=== PATIENT | female | born 1970 | race Caucasian/White ===

== ENCOUNTER 2019-11-02 13:44 | Emergency (ER) | payer MEDICAID, SELFPAY ==
[2019-11-02 13:49] VITALS: BP 140/75; PULSE 75; RESP 20; TEMP 36.6; O2SAT 94; BMI 38.9
--- NOTE | 2019-11-02 13:57 | ED_ITS ---
Entered by [id number], acting as scribe for Eric Bearden DO Nov 02, 2019 13:44 HPI - Neck Pain/Injury General: Chief Complaint: Neck Pain/Injury Stated Complaint: Neck Pain Time Seen by Provider: 11/02/19 13:48 PFSH ED PFSH: Statuses (acute, chronic, etc) shown below reflect problem list status as previously entered and may not be historically accurate Medical History (Updated 11/02/19 @ 14:56 by Eric Bearden DO) Neck pain (Acute) Surgical History (Updated 11/02/19 @ 14:25 by Dorota Singh) History of back surgery (Acute) Social History Smoking and tobacco status: current every day smoker Course Vital Signs: Vital signs: Vital Signs Temperature 97.9 F 11/02/19 13:49 Pulse Rate 75 11/02/19 13:49 Respiratory Rate 20 H 11/02/19 13:49 Blood Pressure 140/75 11/02/19 13:49 Pulse Oximetry 94 11/02/19 13:49 Discharge Plan Discharge Patient Disposition: Home, Self-Care Clinical Impression: Neck pain, Disc disorder of cervical region, Cervical radiculopathy, Cervical spondylosis Condition: Stable Prescriptions: New hydrocodone-acetaminophen 5-325 mg tablet 1 tab PO Q4H PRN (Reason: pain) Qty: 10 RF: 0 cyclobenzaprine 10 mg tablet 10 mg PO Q8H Qty: 20 RF: 0 No Action Pending RF: 0 Discharge Orders: Discharge Order (Routine); Ordered 11/02/19 Ordered By: Eric Bearden Discharge Activity: Limit activity as instructed Patient Instructions: Cervical Spinal Stenosis (ED), Cervical Sprain (ED), Cervical Radiculopathy (ED) Coding Level of Care Code ED Nutrition Coordinator for Smiley Polk The documentation recorded by the scribe, [id number], accurately reflects the service I personally performed and the decisions made by Monisha mccarthy Donald P, DO Nov 02, 2019 13:44
--- NOTE | 2019-11-02 14:00 | XRR_ITS ---
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 COMPARISON: No relevant prior studies available. FINDINGS: Vertebrae: Moderate diffuse facet degenerative changes are noted. There is mild disc space narrowing and endplate sclerosis at C5-C6. Marginal osteophytes are also noted at this level. No subluxation. No acute fracture. Soft tissues: Normal. XR/XR cervical spine 2V* [id number] IMPRESSION: Degenerative changes as above. No acute abnormality.
--- NOTE | 2019-11-02 14:03 | ED_ITS ---
Entered by Dorota Singh, acting as scribe for Eric Bearden DO HPI - Neck Pain/Injury General: Chief Complaint: Neck Pain/Injury Stated Complaint: Neck Pain Time Seen by Provider: 11/02/19 13:48 Source: patient Mode of arrival: wheelchair Limitations: no limitations History of Present Illness: HPI Narrative: 48 yo Male presents to ED with complaint of neck pain. Pt states that he was told recently that he had problems with his neck and it would get worse. Pt states that he woke up yesterday morning with a bloody nose and a bad headache. Pt states that when he tries to move his head he feels it crunching in his neck. Pt states that his eye sight is going in and out. MD complaint: neck pain Onset (ago): day(s) (yesterday) Place: home Severity scale (1-10): 10 Duration: constant Context: other (no injury occurred) Associated symptoms: Reports headache(s) Review of Systems General: Reports: 10 or more systems reviewed and unremarkable except in HPI and below Eyes: Reports: change in vision Musc: Reports: neck pain Neuro: Reports: headache PFSH ED PFSH: Statuses (acute, chronic, etc) shown below reflect problem list status as previously entered and may not be historically accurate Medical History (Updated 11/02/19 @ 14:56 by Eric Bearden DO) Neck pain (Acute) Surgical History (Updated 11/02/19 @ 14:25 by Dorota Singh) History of back surgery (Acute) Social History Smoking and tobacco status: current every day smoker Physical Exam Const: COMMON NORMALS: no apparent distress, average body habitus, oriented x3, no limitations, healthy appearing, alert and well nourished HENMT: COMMON NORMALS: normocephalic, head/scalp atraumatic, hearing grossly normal bilaterally, external ears normal, EAC's normal, TM's normal bilaterally, external nose normal, nasal mucous membranes and turbinates normal, moist oral mucous membranes, oropharynx normal, dentition normal and gingiva normal HEAD & SCALP: normocephalic and atraumatic NOSE: external nose normal and nasal mucous membranes and turbinates normal EXTERNAL EAR: Yes external ears normal EXTERNAL AUDITORY CANAL: EAC's normal TYMPANIC MEMBRANE: TM's normal bilaterally Eye: COMMON NORMALS: PERRL, EOMs intact bilaterally, conjunctivae normal, no scleral icterus, no papilledema, normal visual mcdonald by confrontation and fundi normal bilaterally CONJUNCTIVA: Yes conjunctivae normal PUPIL: Yes PERRL DIRECT OPHTHALMOSCOPY: Yes no papilledema and Yes fundi normal bilaterally Neck/C-Spine: COMMON NORMALS: full ROM, no lymphadenopathy, supple, no meningeal signs, no JVD, thyroid normal and no carotid bruits THYROID: thyroid normal Chest: COMMONS NORMALS: inspection of chest normal and palpation of chest normal Resp: COMMON NORMALS: normal respiratory effort, no retractions, no use of accessory muscles, clear to auscultation bilaterally and percussion normal AUSCULTATION: clear to auscultation bilaterally PERCUSSION: percussion normal Cardio: COMMON NORMALS: no JVD, regular rate, regular rhythm, S1 normal heart sound, S2 normal heart sound, no gallops, no clicks, no murmurs, no rub and peripheral pulses 2+ throughout RATE: regular rate RHYTHM: regular rhythm HEART SOUNDS: S1 normal and S2 normal PERIPHERAL PULSES: pulses 2+ througho ut GI: COMMON NORMALS: normal to inspection, nondistended, normoactive bowel sounds, soft to palpation, non-tender, no hepatosplenomegaly, no masses and no bruits PALPATION: Yes soft and Yes no hepatosplenomegaly : COMMON NORMALS: Yes no CVA tenderness and Yes external appearance normal BLADDER/KIDNEY EXAM: Yes no CVA tenderness Back/Pelvis: COMMON NORMALS: no CVA tenderness, thoracic and lumbar spine normal to inspection, no thoracic nor lumbar tenderness, thoraco-lumbar ROM normal and straight leg raise negative bilaterally Extremity: COMMON NORMALS: normal to inspection, full ROM, normal capillary refill, no joint enlargement, no clubbing, cyanosis or edema, no calf tenderness and no pedal edema Neuro: COMMON NORMALS: oriented x3 SENSORIUM/ORIENTATION: Yes alert MENINGEAL SIGNS: Yes no meningeal signs Skin: COMMON NORMALS: no rashes or lesions noted, no wounds, skin turgor normal, no jaundice, no petechiae and no mottling GENERAL SKIN EXAM: no rashes or lesions noted and turgor normal Course Vital Signs: Vital signs: Vital Signs Temperature 97.9 F 11/02/19 13:49 Pulse Rate 75 11/02/19 13:49 Respiratory Rate 20 H 11/02/19 13:49 Blood Pressure 140/75 11/02/19 13:49 Pulse Oximetry 94 11/02/19 13:49 Discharge Plan Discharge Patient Disposition: Home, Self-Care Clinical Impression: Neck pain, Disc disorder of cervical region, Cervical radiculopathy, Cervical spondylosis Condition: Stable Prescriptions: No Action Pending RF: 0 Discharge Activity: Limit activity as instructed Patient Instructions: Cervical Radiculopathy (ED), Cervical Spinal Stenosis (ED), Cervical Sprain (ED) Coding Level of Care Code ED Customs Manager for Chg Fwd Exam Problem Focused The documentation recorded by the Francisco teresa Carmen, accurately reflects e service I personally performed and the decisions made by Monisha mccarthy Donald P, DO
[2019-11-02] MEDS: HYDROcodone-acetaminophen 5-325 mg Tablet 2 TAB PO (14:36)
--- NOTE | 2019-11-02 14:37 | PC.NURSE ---
pt off unit at this time to radiology by wheelchair with tech
[2019-11-02 15:19] VITALS: BP 122/65; PULSE 76; O2SAT 93
[2019-11-02] MEDS: fentaNYL 50 mcg/mL INJ 2mL 100 MCG XX (15:21)
--- NOTE | 2019-11-04 12:47 | DCPLANNER ---
manager video games had message to schedule a follow up appointment for patient with Dr. Zayas. manager video games called [facility], spoke with Radha. manager video games gave clinic patients information, was told that patients information would be printed and given to Curtis for review. Clinic will call patient with appointment information, case work aide will call clinic for appointment information.
--- NOTE | 2019-11-05 11:26 | DCPLANNER ---
Curtis from Dr. Hartmann office called transplant case manager with appointment information. prototype engineer manager was told that a follow up appointment is scheduled for Monday, January 06, 2020 at 1:00 with TELESALES REPRESENTATIVE, Christina Yuan. prototype engineer manager was told that clinic contacted patient with appointment information.
--- NOTE | 2020-01-08 14:19 | DCPLANNER ---
Patient attended follow up appointment scheduled with Dr. Zayas.
== END 2019-11-02 15:35 | disposition home or self-care (01) ==
PROVIDERS: Emergency Provider Family Medicine
DX: M50.10 Cervical disc disorder with radiculopathy, unspecified cervical region (principal); M47.812 Spondylosis without myelopathy or radiculopathy, cervical region; F17.210 Nicotine dependence, cigarettes, uncomplicated
CPT/HCPCS: 72040; 96372; 99281; J3010

== ENCOUNTER → 2019-12-20 12:48 | Outpatient (BNVA) | payer MEDICAID, SELFPAY | PROVIDERS: PCP Family Medicine; Visit Provider Psychiatry & Neurology Neurology | DX: G56.02 Carpal tunnel syndrome, left upper limb (principal); M54.2 Cervicalgia; F17.210 Nicotine dependence, cigarettes, uncomplicated | CPT/HCPCS: 95886; 95910 ==

== ENCOUNTER 2019-12-26 13:39 | Outpatient (CLI) | payer MEDICAID, SELFPAY ==
--- NOTE | 2019-12-26 14:30 | MR_ITS ---
WS: [id number] MRI CERVICAL SPINE NONCONTRAST TECHNIQUE: Sagittal T1, T2 and STIR imaging. Axial T2, gradient, and fiesta imaging. CLINICAL INFORMATION: Neck pain COMPARISON: None. FINDINGS: Some images degraded by motion. Straightening of the normal cervical lordosis. Cord signal is normal. No high-grade central canal reyna rowing. C2-C3: Mild left and no significant right foraminal narrowing. Mild facet arthropathy. Spinal canal i s patent. C3-C4: Disc osteophytic ridging. Moderate left and mild right bony foraminal narrowing. Mild facet ar thropathy. Mild central canal stenosis. C4-C5: Mild disc bulging with osteophytic ridging. Moderate left and mild right bony foraminal narrow ing. Mild facet arthropathy. Mild central canal stenosis. C5-C6: Disc osteophyte complex with mild central canal stenosis. Moderate bilateral bony foraminal na rrowing left greater than right. Moderate facet arthropathy. C6-C7: Mild disc bulging. Mild to moderate left and no significant right foraminal narrowing. Mild fa cet arthropathy. Spinal canal is patent. C7-T1: Normal. Visualized brain stem structures: Normal. Prevertebral soft tissues: Normal. MR/MR cervical spin wo con* [id number] IMPRESSION: 1. Straightening of the normal cervical lordosis. No high-grade central canal narrowing. 2. Mild central canal stenosis C3-C4 C4-C5 and C5-C6 worse at C5-C6. 3. Moderate multilevel bony foraminal narrowing worse at left C3-C4, left C4-C 5, left C5-C6 and left C6-C7. 4. Multilevel facet arthropathy described above.
--- NOTE | 2019-12-26 15:15 | CT_ITS ---
WS: [id number] CT THORACIC SPINE TECHNIQUE: Noncontrast CT of the thoracic spine with coronal and sagittal reformatted images. CLINICAL INFORMATION: HX Lumbar fusion/fixation COMPARISON: None. DLP: 1452.[address] scans at [facility] use at least one of these dose optimization techniques: automat ed exposure control; mA and/or kV adjustment per patient size (includes targeted exams where dose is matched to clinical indication); or iterative reconstruction. FINDINGS: Some images degraded due to beam hardening artifact from hardware. Mild thoracic kyphosis. Anterior hypertrophic changes in the mid and lower thoracic spine. Postoperat caron changes pedicle screw fixation with interconnecting rods T10-S1. Thoracic interconnecting rods ap pear intact. Associated laminectomy defects. No evidence of hardware loosening of the thoracic spine. Prominent disc osteophyte complex T11-12 with effacement of ventral thecal sac. Right pericentral disc osteophyte complex T5-6 with mild central canal stenosis. Mild central canal s tenosis T3-4 due to dorsal ligamentum flavum calcification. Degenerative disc disease worse at T7-T8, T8-T9, T9-T10, T10-11. Atelectasis in the lung bases.. Associated laminectomy defects. CT/CT thoracic spin wo con* [id number] IMPRESSION: 1. Mild thoracic kyphosis with prior postoperative changes pedicle screw fixat ion T10-S1 with interconnecting rods. Hardware in the thoracic spine appears in tact. 2. Decompressive laminectomy defects in the lower thoracic spine. 3. Mild central canal stenosis T3-4 and T5-T6. Prominent right pericentral dis c osteophyte complex T5-6. 4. Degenerative disc disease worse at T7-T9. Prominent anterior hypertrophic c hanges in the mid and lower thoracic spine. 5. Prominent osteophytic ridging T11-T12 with effacement of ventral thecal sac . Spinal canal decompressed at this level.
--- NOTE | 2019-12-26 15:30 | CT_ITS ---
WS: [id number] CT LUMBAR SPINE TECHNIQUE: Noncontrast CT of the lumbar spine with coronal and sagittal reformatted images. CLINICAL INFORMATION: Lumbar fusion/fixation COMPARISON: None. DLP: 1168.[address] scans at [facility] use at least one of these dose optimization techniques: automat ed exposure control; mA and/or kV adjustment per patient size (includes targeted exams where dose is matched to clinical indication); or iterative reconstruction. FINDINGS: Postoperative changes pedicle screw fixation T10-S1 with interconnecting rods. Bilateral iliac screws . Interconnecting rods appear intact. Lucency about the bilateral L4 pedicle screws, bilateral L5 ped icle screws, and bilateral S1 pedicle screws consistent with loosening. Lucency about the S1 screws c onsistent with loosening. Decompressive laminectomies throughout the lumbar spine. Interbody fusion L 4-5. L1-L2: Normal. L2-L3: No significant disc bulging. Spinal canal and foramen are patent. Facet arthropathy. L3-L4: Disc osteophyte complex with endplate ridging. Moderate central canal stenosis with remote wright inectomy defects. Moderate bilateral bony foraminal narrowing. L4-L5: Interbody bony fusion L4-5. Mild left and no significant right foraminal narrowing. Spinal can al is patent. L5-S1: Disc osteophyte complex with moderate bilateral bony foraminal narrowing. Mild central canal s tenosis. Advanced arthropathy. Visualized pelvic bony structures: Normal. Paravertebral soft tissues: Normal. CT/CT lumbar spine wo con* [id number] IMPRESSION: 1. Multilevel pedicle screw fixation T10-S1 with bilateral iliac screws. Inter body fusion L4-5. 2. Remote laminectomy defects. 3. Pedicle screw loosening bilateral L4, L5 and S1. Loosening of the bilateral iliac screws. 4. Hardware otherwise appears intact. 5. Moderate central canal stenosis L3-4 due to disc osteophyte complex. Modera te bilateral bony foraminal narrowing at this level. 6. Moderate bilateral L5-S1 bony foraminal narrowing. Mild central canal steno sis at this level.
--- NOTE | 2019-12-26 15:45 | XR_ITS ---
WS: [id number] CERVICAL SPINE FLEXION EXTENSION TECHNIQUE: 3 views of the cervical spine: lateral neutral, flexion and extension views. CLINICAL INFORMATION: Neck pain COMPARISON: None. FINDINGS: Straightening of normal cervical lordosis. Normal C1-C2 articulation. Mild spondylitic changes cervic al spine. No instability on flexion-extension. Normal prevertebral soft tissues. Posterior elements are normal. No other significant findings. XR/XR cervical spine fl/ex [id number] IMPRESSION: No instability on flexion-extension
== END 2019-12-26 13:40 | disposition home or self-care (01) ==
PROVIDERS: PCP Family Medicine; Visit Provider Licensed Practical Nurse
DX: M48.061 Spinal stenosis, lumbar region without neurogenic claudication (principal); M50.020 Cervical disc disorder with myelopathy, mid-cervical region, unspecified level; M96.1 Postlaminectomy syndrome, not elsewhere classified; M48.04 Spinal stenosis, thoracic region; M47.894 Other spondylosis, thoracic region; M25.78 Osteophyte, vertebrae; M48.02 Spinal stenosis, cervical region; Z98.1 Arthrodesis status
CPT/HCPCS: 72040; 72128; 72131; 72141

== ENCOUNTER → 2020-01-16 08:29 | Outpatient (BNVA) | payer MEDICAID, SELFPAY | PROVIDERS: PCP Family Medicine; Referring Provider Licensed Practical Nurse; Visit Provider Anesthesiology Pain Medicine | DX: M50.020 Cervical disc disorder with myelopathy, mid-cervical region, unspecified level (principal); M47.812 Spondylosis without myelopathy or radiculopathy, cervical region; M54.12 Radiculopathy, cervical region; M62.830 Muscle spasm of back; M96.1 Postlaminectomy syndrome, not elsewhere classified; F17.210 Nicotine dependence, cigarettes, uncomplicated; Z98.1 Arthrodesis status; Z79.891 Long term (current) use of opiate analgesic | CPT/HCPCS: 99205 ==

== ENCOUNTER → 2020-01-22 13:59 | Outpatient (BNVA) | payer MEDICAID, SELFPAY | PROVIDERS: PCP Family Medicine; Visit Provider Anesthesiology Pain Medicine | DX: G89.29 Other chronic pain (principal); M54.5 Low back pain; M96.1 Postlaminectomy syndrome, not elsewhere classified | CPT/HCPCS: 64483; 64484; J1040; J2001; J3490 ==

== ENCOUNTER → 2020-03-24 08:22 | Outpatient (BNVA) | payer MEDICAID, SELFPAY | PROVIDERS: PCP Family Medicine; Visit Provider Anesthesiology Pain Medicine | DX: M54.5 Low back pain (principal); M50.020 Cervical disc disorder with myelopathy, mid-cervical region, unspecified level; M54.12 Radiculopathy, cervical region; M47.812 Spondylosis without myelopathy or radiculopathy, cervical region; M96.1 Postlaminectomy syndrome, not elsewhere classified; M62.830 Muscle spasm of back; F17.210 Nicotine dependence, cigarettes, uncomplicated; Z98.1 Arthrodesis status; Z79.891 Long term (current) use of opiate analgesic | CPT/HCPCS: 99213; 99214 ==

== ENCOUNTER → 2020-04-03 12:53 | Outpatient (BNVA) | payer MEDICAID, SELFPAY | PROVIDERS: PCP Family Medicine; Visit Provider Anesthesiology Pain Medicine | DX: M47.812 Spondylosis without myelopathy or radiculopathy, cervical region (principal); M54.5 Low back pain; F17.210 Nicotine dependence, cigarettes, uncomplicated; Z79.891 Long term (current) use of opiate analgesic | CPT/HCPCS: 64490; 64491; 64492; J1030; J2001; J3490 ==

== ENCOUNTER → 2020-04-23 14:19 | Outpatient (BNVA) | payer MEDICAID, SELFPAY | PROVIDERS: PCP Family Medicine; Visit Provider Anesthesiology Pain Medicine | DX: M54.5 Low back pain (principal); M96.1 Postlaminectomy syndrome, not elsewhere classified; M50.020 Cervical disc disorder with myelopathy, mid-cervical region, unspecified level; M54.12 Radiculopathy, cervical region; M47.812 Spondylosis without myelopathy or radiculopathy, cervical region; M62.830 Muscle spasm of back; F17.210 Nicotine dependence, cigarettes, uncomplicated; Z98.1 Arthrodesis status; Z79.891 Long term (current) use of opiate analgesic | CPT/HCPCS: 99213; 99214 ==

== ENCOUNTER 2020-05-11 16:39 | Observation (INO) | payer MEDICAID, SELFPAY ==
--- NOTE | 2020-05-11 16:42 | ECG_ITS ---
[facility] Test Date: 2020-05-11 Pat Name: Jesse Carbajal Department: Room: Gender: Male Medical Transcription: Kimberly : 1970 Requested By: Alex Tirado Order Number: [id number] Maia MD: Breonna Mercado M.D. Measurements Intervals [place] Rate: 95 P: 25 ME: 147 QRS: 45 QRSD: 106 T: 46 QT: 373 QTc: 471 Interpretive Statements SINUS RHYTHM POSSIBLE LEFT ATRIAL ENLARGEMENT [-0.1mV P WAVE IN V1/V2] No previous ECG available for comparison Electronically Signed On 05-12-2020 19:15:57 CDT by Breonna Mercado M.D. [email or web address]
--- NOTE | 2020-05-11 16:42 | XR_ITS ---
WS: [id number] CHEST XRAY TECHNIQUE: Portable chest. CLINICAL INFORMATION: cp COMPARISON: None. FINDINGS: Heart: Normal cardiac silhouette. Lungs: Lungs are clear. No consolidation or pleural effusion. Bones: Postoperative changes lower thoracic spine. XR/XR chest 1V portable [id number] IMPRESSION: No acute chest findings
[2020-05-11 16:56] VITALS: BP 119/76; PULSE 97; RESP 10; TEMP 37.2; O2SAT 93; BMI 41.3
--- NOTE | 2020-05-11 16:57 | W.ED.CHESTPA ---
Documented by User: Alex Tirado MD 05/12/20 05:58 HPI - Chest Pain General: Chief Complaint: Chest Pain Stated Complaint: cHEST pAIN SOB Time Seen by Provider: 05/11/20 16:43 Source: patient and EMS Mode of arrival: EMS Limitations: no limitations History of Present Illness: HPI narrative: 49-year-old male who states he is been having shortness of breath and chest pain over the last day. Patient states his pain is sharp in nature and rates it a 4 out of 10. Patient is not on oxygen at home but when EMS arrived his pulse ox was in the 80s and he had wheezing. Patient was given Solu-Medrol terbutaline and nitro in route. He states his pain is lessened and is now a 2 out of 10. States he still having some mild shortness of breath. Denies any fevers. Denies any vomiting or diarrhea. complaint: chest pain Associated symptoms: Reports dyspnea; Deny abdominal pain, fever(s), nausea or vomiting Review of Systems Const: Denies: fever(s), chills, body aches or change in appetite Eyes: Denies: blurry vision or eye discomfort ENMT: Denies: throat pain or dental pain Card: Reports: chest pain Resp: Reports: dyspnea GI: Denies: abdominal pain, nausea, vomiting or diarrhea : Denies: dysuria Musc: Denies: neck pain or back pain Skin/Breast: Denies: rash Neuro: Denies: headache(s) Psych: Denies: depression Laz/Lymph: Denies: easy bruising All/Imm: Denies: urticaria PFSH ED PFSH: Medical History CAD (coronary artery disease) Cervical disc disorder with myelopathy of mid-cervical region CVA (cerebral vascular accident) Status post laminectomy with spinal fusion Surgical History History of back surgery 06/2015 [place], [place]. Lumbar fusion/fixation. multilevel pedicle screw fixation T10 and S1 with bilateral iliac screws. Interbody fusion L4-L5. 06/2009 [place] Lumbar fusion/fixation Family History Mother Cancer Hypertension Father Cancer Hypertension Stroke Grandmother Cancer Grandfather Cancer Social History Smoking and tobacco status: current every day smoker Alcohol intake: never Household members: none Marital status: Current occupational status: disabled History of recent travel: No Physical Exam Const: COMMON NORMALS: no acute distress, patient oriented x3 and healthy appearing HENMT: COMMON NORMALS: normocephalic and atraumatic HEAD & SCALP: normocephalic and atraumatic Eye: COMMON NORMALS: Equal, round and reactive pupils present and EOMs intact bilaterally PUPIL: Yes Equal, round and reactive pupils present Neck/C-Spine: COMMON NORMALS: full ROM and supple Chest: COMMONS NORMALS: normal inspection of the chest OTHER: point tender to left chest Resp: COMMON NORMALS: normal respiratory effort and No retractions EFFORT & INSPECTION: Yes tachypneic AUSCULTATION: wheezes Cardio: COMMON NORMALS: regular rate, regular rhythm and No murmurs present (Cardio) RATE: regular rate RHYTHM: regular rhythm GI: COMMON NORMALS: Normal to inspection, nondistended, normoactive bowel sounds present, Soft to palpation, non-tender and no masses PALPATION: Yes Soft to palpation Extremity: COMMON NORMALS: normal to inspection and full ROM Neuro: COMMON NORMALS: patient oriented x3, moves all extremities and no focal motor deficits Psych: COMMON NORMALS: mental status grossly normal, Normal thought process present and cooperative THOUGHT PROCESS: Normal thought process present Skin: COMMON NORMALS: no rashes or lesions noted and no wounds GENERAL SKIN EXAM: no rashes or lesions noted Course Vital Signs: Vital signs: Vital Signs Temperature 98.1 F 05/12/20 04:00 Pulse Rate 109 H 05/12/20 04:00 Respiratory Rate 20 H 05/12/20 04:00 Blood Pressure 149/80 05/12/20 04:00 Pulse Oximetry 91 05/12/20 04:00 MDM - Chest Pain MDM Narrative: Medical decision making narrative: Patient presents here with shortness of breath with likely asthma exacerbation. Patient does have point tenderness on his chest is likely chest wall pain. Will give patient breathing treatment. Patient's d-dimer is mildly elevated will CT his chest. Patient's care turned over to Dr. Turner at this time to follow those results. Lab Data: Labs: Lab Results 05/11/20 05/11/20 05/11/20 Range/Units 15:57 15:57 15:57 WBC 8.4 (4.0-10.0) 10^3/ uL RBC 5.29 (4.1-5.3) 10^6/u L Hgb 16.1 (11.7-16.6) g/dL Hct 48.4 (42.0-52.0) % MCV 91.5 (80-94) fL MCH 30.4 (28.0-34.0) pg MCHC 33.3 (30.0-36.0) g/dL RDW 12.7 (12.1-15.1) % Plt Count 293 (130-400) 10^3/c mm MPV 9.8 (7.4-10.4) fL Neut % (Auto) 58.2 % Lymph % (Auto) 25.8 % [place] % (Auto) 11.9 % Eos % (Auto) 3.1 % Baso % (Auto) 0.6 % Neut # (Auto) 4.88 (1.8-7.7) 10^3/u L Lymph # (Auto) 2.2 (0.8-4.8) 10^3/u L [place] # (Auto) 1.0 H (0.2-0.9) 10^3/u L Eos # (Auto) 0.3 (0.0-0.8) 10^3/u L Baso # (Auto) 0.1 (0.0-0.1) 10^3/u L Nucleated RBC % (a uto) 0 % Nucleated RBCs # 0.0 /100WBC PT 13.10 (10.5-13.3) SECO NDS INR 0.96 (0.8-1.2) D-Dimer 0.73 H (0-0.59) ug/mIFE U Specimen Type Sample Site ABG pH (7.35-7.45) ABG pCO2 (35-45) mmHg ABG pO2 (80.0-100.0) mmH g ABG HCO3 (22-26) mmol/L ABG Base Excess (-2.0-2.0) mmol/ L Femi Test Hematocrit (42-52) % O2 Delivery Device O2 Liters/Min % Nuclear Officer ID Sodium 141 (136-145) mmol/L Potassium 4.6 (3.5-5.1) mmol/L Chloride 103 (98-107) mmol/L Carbon Dioxide 28 (22-29) mmol/L Anion Gap 14.6 (5-19) BUN 12 (6-20) mg/dL Creatinine 0.9 (0.7-1.2) mg/dL GFR Calculation 89.7 L (90-130) mL/min Glucose 111 (65-115) mg/dL Calculated Osmolal ity 289 (285-295) mOsm/k g Calcium 10.2 (8.5-10.5) mg/dL Total Bilirubin 0.3 (0.15-1.2) mg/dL AST 21 (0-40) U/L ALT 28 (0-41) U/L Alkaline Phosphata se 75 (40-130) IU/L Troponin T Baselin e (0-15) ng/L Troponin T 120 Min bois [place]te (0-15) ng/L Delta Troponin T (0-10) ABS# NT-Pro-B Natriuret Pep 7 (0-125) pg/mL Total Protein 6.6 (6.6-8.7) g/dL Albumin 4.5 (3.5-5.2) g/dL Globulin 2.1 (1.3-4.6) g/dL 05/11/20 05/11/20 05/11/20 Range/Units 15:57 17:57 19:30 WBC (4.0-10.0) 10^3/ uL RBC (4.1-5.3) 10^6/u L Hgb (11.7-16.6) g/dL Hct (42.0-52.0) % MCV (80-94) fL MCH (28.0-34.0) pg MCHC (30.0-36.0) g/dL RDW (12.1-15.1) % Plt Count (130-400) 10^3/c mm MPV (7.4-10.4) fL Neut % (Auto) % Lymph % (Auto) % [place] % (Auto) % Eos % (Auto) % Baso % (Auto) % Neut # (Auto) (1.8-7.7) 10^3/u L Lymph # (Auto) (0.8-4.8) 10^3/u L [place] # (Auto) (0.2-0.9) 10^3/u L Eos # (Auto) (0.0-0.8) 10^3/u L Baso # (Auto) (0.0-0.1) 10^3/u L Nucleated RBC % (a uto) % Nucleated RBCs # /100WBC PT (10.5-13.3) SECO NDS INR (0.8-1.2) D-Dimer (0-0.59) ug/mIFE U Specimen Type Arterial Sample Site Radial, left ABG pH 7.41 (7.35-7.45) ABG pCO2 43.5 (35-45) mmHg ABG pO2 68.3 L (80.0-100.0) mmH g ABG HCO3 27.3 H (22-26) mmol/L ABG Base Excess 2.1 H (-2.0-2.0) mmol/ L Femi Test Pos Hematocrit 49.8 (42-52) % O2 Delivery Device Nc O2 Liters/Min 2.0 % Nuclear Officer ID [email or web address] Sodium (136-145) mmol/L Potassium (3.5-5.1) mmol/L Chloride (98-107) mmol/L Carbon Dioxide (22-29) mmol/L Anion Gap (5-19) BUN (6-20) mg/dL Creatinine (0.7-1.2) mg/dL GFR Calculation (90-130) mL/min Glucose (65-115) mg/dL Calculated Osmolal ity (285-295) mOsm/k g Calcium (8.5-10.5) mg/dL Total Bilirubin (0.15-1.2) mg/dL AST (0-40) U/L ALT (0-41) U/L Alkaline Phosphata se (40-130) IU/L Troponin T Baselin e 15 (0-15) ng/L Troponin T 120 Min [place] 11.82 (0-15) ng/L Delta Troponin T -3.18 L (0-10) ABS# NT-Pro-B Natriuret Pep (0-125) pg/mL Total Protein (6.6-8.7) g/dL Albumin (3.5-5.2) g/dL Globulin (1.3-4.6) g/dL Imaging Data^: CXR: Attestation: I personally reviewed and interpreted this imaging study as follows: My impression: no acute abnormality EKG Data^: EKG 1: Attestation: I personally reviewed and interpreted this EKG as follows: EKG interpretation date: 05/11/20 EKG interpretation time: 17:04 Interpretation: nsr hr [address] or t wave abnormalities qrs 106 qtc 426 Discharge Plan Discharge Patient Disposition: Placed in Observation Admit Provider: Yogi Casas Clinical Impression: COPD with acute exacerbation, Chest pain Condition: Stable Referrals: Arsen Hernandez [Primary Care Provider] - Discharge Date/Time: 05/11/20 23:00 Sign Out Sign Out Data: Patient Sign Out occurred on 05/11/20 at 18:20. Patient's care was discussed, and care was transferred from to Courtney Hastings. Coding Level of Care Code ED Bindery Leadperson for Chg Fwd Exam Comprehensive Documented by User: Courtney Hastings 05/11/20 23:32 HPI - Chest Pain General: Chief Complaint: Chest Pain Stated Complaint: cHEST pAIN SOB Time Seen by Provider: 05/11/20 16:43 PFSH ED PFSH: Medical History CAD (coronary artery disease) Cervical disc disorder with myelopathy of mid-cervical region CVA (cerebral vascular accident) Status post laminectomy with spinal fusion Surgical History History of back surgery 06/2015 [place], [place]. Lumbar fusion/fixation. multilevel pedicle screw fixation T10 and S1 with bilateral iliac screws. Interbody fusion L4-L5. 06/2009 [place] Lumbar fusion/fixation Family History Mother Cancer Hypertension Father Cancer Hypertension Stroke Grandmother Cancer Grandfather Cancer Social History Smoking and tobacco status: current every day smoker Alcohol intake: never Household members: none Marital status: Current occupational status: disabled History of recent travel: No Course Vital Signs: Vital signs: Vital Signs Temperature 98.1 F 05/12/20 04:00 Pulse Rate 109 H 05/12/20 04:00 Respiratory Rate 20 H 05/12/20 04:00 Blood Pressure 149/80 05/12/20 04:00 Pulse Oximetry 91 05/12/20 04:00 MDM - Chest Pain MDM Narrative: Medical decision making narrative: Case turned over to me Dr. Hastings at change of shift from Dr. Tirado. Please see his note for his history, physical exam and medical decision-making notes. Mr. Carbajal had abrupt onset of shortness of breath with chest tightness at about 3 PM. He had some pain radiate down his left arm that was relieved with nitroglycerin by EMS. He associated diaphoresis, nausea and shortness of breath. EMS noted a pulse ox to be in the mid to low 80s on room air and they gave him terbutaline along with Solu-Medrol and the nitroglycerin which resolved his pain. Think the patient is more likely a COPD exacerbation but he has significant hypoxemia. I reviewed the case with Dr. Hampton and he agrees to keep the patient and treat him primarily for COPD exacerbation but will also rule him out and determine if he needs a stress test while he is here. Lab Data: Attestation: I reviewed the patient's lab results. Labs: Lab Results 05/11/20 05/11/20 05/11/20 Range/Units 15:57 15:57 15:57 WBC 8.4 (4.0-10.0) 10^3/ uL RBC 5.29 (4.1-5.3) 10^6/u L Hgb 16.1 (11.7-16.6) g/dL Hct 48.4 (42.0-52.0) % MCV 91.5 (80-94) fL MCH 30.4 (28.0-34.0) pg MCHC 33.3 (30.0-36.0) g/dL RDW 12.7 (12.1-15.1) % Plt Count 293 (130-400) 10^3/c mm MPV 9.8 (7.4-10.4) fL Neut % (Auto) 58.2 % Lymph % (Auto) 25.8 % [place] % (Auto) 11.9 % Eos % (Auto) 3.1 % Baso % (Auto) 0.6 % Neut # (Auto) 4.88 (1.8-7.7) 10^3/u L Lymph # (Auto) 2.2 (0.8-4.8) 10^3/u L [place] # (Auto) 1.0 H (0.2-0.9) 10^3/u L Eos # (Auto) 0.3 (0.0-0.8) 10^3/u L Baso # (Auto) 0.1 (0.0-0.1) 10^3/u L Nucleated RBC % (a uto) 0 % Nucleated RBCs # 0.0 /100WBC PT 13.10 (10.5-13.3) SECO NDS INR 0.96 (0.8-1.2) D-Dimer 0.73 H (0-0.59) ug/mIFE U Specimen Type Sample Site ABG pH (7.35-7.45) ABG pCO2 (35-45) mmHg ABG pO2 (80.0-100.0) mmH g ABG HCO3 (22-26) mmol/L ABG Base Excess (-2.0-2.0) mmol/ L Femi Test Hematocrit (42-52) % O2 Delivery Device O2 Liters/Min % Nuclear Officer ID Sodium 141 (136-145) mmol/L Potassium 4.6 (3.5-5.1) mmol/L Chloride 103 (98-107) mmol/L Carbon Dioxide 28 (22-29) mmol/L Anion Gap 14.6 (5-19) BUN 12 (6-20) mg/dL Creatinine 0.9 (0.7-1.2) mg/dL GFR Calculation 89.7 L (90-130) mL/min Glucose 111 (65-115) mg/dL Calculated Osmolal ity 289 (285-295) mOsm/k g Calcium 10.2 (8.5-10.5) mg/dL Total Bilirubin 0.3 (0.15-1.2) mg/dL AST 21 (0-40) U/L ALT 28 (0-41) U/L Alkaline Phosphata se 75 (40-130) IU/L Troponin T Baselin e (0-15) ng/L Troponin T 120 Min [place] (0-15) ng/L Delta Troponin T (0-10) ABS# NT-Pro-B Natriuret Pep 7 (0-125) pg/mL Total Protein 6.6 (6.6-8.7) g/dL Albumin 4.5 (3.5-5.2) g/dL Globulin 2.1 (1.3-4.6) g/dL 05/11/20 05/11/20 05/11/20 Range/Units 15:57 17:57 19:30 WBC (4.0-10.0) 10^3/ uL RBC (4.1-5.3) 10^6/u L Hgb (11.7-16.6) g/dL Hct (42.0-52.0) % MCV (80-94) fL MCH (28.0-34.0) pg MCHC (30.0-36.0) g/dL RDW (12.1-15.1) % Plt Count (130-400) 10^3/c mm MPV (7.4-10.4) fL Neut % (Auto) % Lymph % (Auto) % [place] % (Auto) % Eos % (Auto) % Baso % (Auto) % Neut # (Auto) (1.8-7.7) 10^3/u L Lymph # (Auto) (0.8-4.8) 10^3/u L [place] # (Auto) (0.2-0.9) 10^3/u L Eos # (Auto) (0.0-0.8) 10^3/u L Baso # (Auto) (0.0-0.1) 10^3/u L Nucleated RBC % (a uto) % Nucleated RBCs # /100WBC PT (10.5-13.3) SECO NDS INR (0.8-1.2) D-Dimer (0-0.59) ug/mIFE U Specimen Type Arterial Sample Site Radial, left ABG pH 7.41 (7.35-7.45) ABG pCO2 43.5 (35-45) mmHg ABG pO2 68.3 L (80.0-100.0) mmH g ABG HCO3 27.3 H (22-26) mmol/L ABG Base Excess 2.1 H (-2.0-2.0) mmol/ L Femi Test Pos Hematocrit 49.8 (42-52) % O2 Delivery Device Nc O2 Liters/Min 2.0 % Nuclear Officer ID [email or web address] Sodium (136-145) mmol/L Potassium (3.5-5.1) mmol/L Chloride (98-107) mmol/L Carbon Dioxide (22-29) mmol/L Anion Gap (5-19) BUN (6-20) mg/dL Creatinine (0.7-1.2) mg/dL GFR Calculation (90-130) mL/min Glucose (65-115) mg/dL Calculated Osmolal ity (285-295) mOsm/k g Calcium (8.5-10.5) mg/dL Total Bilirubin (0.15-1.2) mg/dL AST (0-40) U/L ALT (0-41) U/L Alkaline Phosphata se (40-130) IU/L Troponin T Baselin e 15 (0-15) ng/L Troponin T 120 Min [place] 11.82 (0-15) ng/L Delta Troponin T -3.18 L (0-10) ABS# NT-Pro-B Natriuret Pep (0-125) pg/mL Total Protein (6.6-8.7) g/dL Albumin (3.5-5.2) g/dL Globulin (1.3-4.6) g/dL Imaging Data^: CT Chest: Radiologist's impression: [address] [address] [address] Scan Report Signed Patient: Jesse Carbajal Unit #: [id number] : 1970 Age/Sex: 49 / M ADM Date: 05/11/20 Loc: ER Room/Bed: Attending Dr: Ordering Provider/Ordering MD: Alex Tirado MD Date of Service: 05/11/20 Procedure(s): CT angio chest PE protcl [id number] Accession Number(s): [id number] Report Number: [id number] PROCEDURE INFORMATION: Exam: CT Angiography Chest With Contrast Exam date and time: 05/11/2020 6:29 PM Age: 49 years old Clinical indication: Shortness of breath; Chest pain; Additional info: Dyspnea TECHNIQUE: Imaging protocol: Computed tomographic angiography of the chest with intravenous contrast. 3D rendering: MIP and/or 3D reconstructed images were created by the technologist. Radiation optimization: All CT scans at this facility use at least one of these dose optimization techniques: automated exposure control; mA and/or kV adjustment per patient size (includes targeted exams where dose is matched to clinical indication); or iterative reconstruction. Contrast material: OMNI 350; Contrast volume: 100 ml; Contrast route: INTRAVENOUS (IV); COMPARISON: CR XR chest 1V portable [id number] 05/11/2020 4:53 PM RADIATION DOSE METRICS: Total DLP (mGy-cm): 1322.67 FINDINGS: Pulmonary arteries: Normal. No pulmonary emboli. Aorta: Unremarkable. No aortic aneurysm. No aortic dissection. Lungs: Unremarkable. No consolidation. No masses. Pleural space: Unremarkable. No pneumothorax. No pleural effusion. Heart: Unremarkable. No cardiomegaly. No pericardial effusion. Lymph nodes: Calcified right axillary lymph node. Gallbladder and bile ducts: Cholelithiasis. Bones/joints: Thoracolumbar fusion hardware. Soft tissues: Unremarkable. CT/CT angio chest PE protcl [id number] IMPRESSION: 1. No evidence for pulmonary embolus or other acute abnormality. Radiation Dose CTDIVOL = (mGy): DLP = 1322.67 (mGy-cm) Dictated By: Carlos Kwon Signed By: Carlos Kwon Signed Date/Time: 05/11/201914 DD/ 13 EKG Data^: EKG 1: Attestation: I personally reviewed and interpreted this EKG as follows: EKG interpretation date: 05/11/20 EKG interpretation time: 17:04 Interpretation: Normal sinus rhythm at 95 beats a minute, no acute ST or T wave findings. EKG 2: Attestation: I personally reviewed and interpreted this EKG as follows: EKG interpretation date: 05/11/20 EKG interpretation time: 18:17 Interpretation: Normal sinus rhythm at 80 beats a minute, nonspecific ST and T wave findings. Discharge Plan Discharge Patient Disposition: Placed in Observation Admit Provider: Yogi Casas Clinical Impression: COPD with acute exacerbation, Chest pain Condition: Stable Referrals: Arsen Hernandez [Primary Care Provider] - Discharge Date/Time: 05/11/20 23:00 Sign Out Sign Out Data: Patient Sign Out occurred on 05/11/20 at 18:20. Patient's care was discussed, and care was transferred from to [facility]. Coding Level of Care Code ED Bindery Leadperson for Chg Fwd Exam Comprehensive
[2020-05-11 17:05] LABS: Basophils # 0.1 10^3/uL (0.0-0.1); Basophils % 0.6 %; Eosinophils # 0.3 10^3/uL (0.0-0.8); Eosinophils % 3.1 %; Hematocrit 48.4 % (42.0-52.0); Hemoglobin 16.1 g/dL (11.7-16.6); Lymphocytes # 2.2 10^3/uL (0.8-4.8); Lymphocytes % 25.8 %; Mean Corpuscular HGB Conc 33.3 g/dL (30.0-36.0); Mean Corpuscular Hemoglobin 30.4 pg (28.0-34.0); Mean Corpuscular Volume 91.5 fL (80-94); Mean Platelet Volume 9.8 fL (7.4-10.4); Monocytes % 11.9 %; Neutrophils # 4.88 10^3/uL (1.8-7.7); Neutrophils % 58.2 %; Nucleated Red Blood Cells % 0 %; Platelet Count 293 10^3/cmm (130-400); Red Blood Count 5.29 10^6/uL (4.1-5.3); Red Cell Distribution Width 12.7 % (12.1-15.1); White Blood Count 8.4 10^3/uL (4.0-10.0)
[2020-05-11 17:24] LABS: INR 0.96 (0.8-1.2)
[2020-05-11 17:27] LABS: D Dimer 0.73 ug/mIFEU (0-0.59)
[2020-05-11 17:33] LABS: Troponin(5th) Baseline 15 ng/L (0-15)
--- NOTE | 2020-05-11 17:33 | CTR_ITS ---
PROCEDURE INFORMATION: Exam: CT Angiography Chest With Contrast Exam date and time: 05/11/2020 6:29 PM Age: 49 years old Clinical indication: Shortness of breath; Chest pain; Additional info: Dyspnea TECHNIQUE: Imaging protocol: Computed tomographic angiography of the chest with intravenous contrast. 3D rendering: MIP and/or 3D reconstructed images were created by the technologist. Radiation optimization: All CT scans at this facility use at least one of these dose optimization techniques: automated exposure control; mA and/or kV adjustment per patient size (includes targeted exams where dose is matched to clinical indication); or iterative reconstruction. Contrast material: OMNI 350; Contrast volume: 100 ml; Contrast route: INTRAVENOUS (IV); COMPARISON: CR XR chest 1V portable [id number] 05/11/2020 4:53 PM RADIATION DOSE METRICS: Total DLP (mGy-cm): 1322.67 FINDINGS: Pulmonary arteries: Normal. No pulmonary emboli. Aorta: Unremarkable. No aortic aneurysm. No aortic dissection. Lungs: Unremarkable. No consolidation. No masses. Pleural space: Unremarkable. No pneumothorax. No pleural effusion. Heart: Unremarkable. No cardiomegaly. No pericardial effusion. Lymph nodes: Calcified right axillary lymph node. Gallbladder and bile ducts: Cholelithiasis. Bones/joints: Thoracolumbar fusion hardware. Soft tissues: Unremarkable. CT/CT angio chest PE protcl [id number] IMPRESSION: 1. No evidence for pulmonary embolus or other acute abnormality. Radiation Dose CTDIVOL = (mGy): DLP = 1322.67 (mGy-cm)
[2020-05-11 17:41] LABS: Alanine Aminotransferase 28 U/L (0-41); Albumin Level 4.5 g/dL (3.5-5.2); Alkaline Phosphatase 75 IU/L (40-130); Anion Gap 14.6 (5-19); Aspartate Amino Transferase 21 U/L (0-40); Blood Urea Nitrogen 12 mg/dL (6-20); Calcium 10.2 mg/dL (8.5-10.5); Carbon Dioxide 28 mmol/L (22-29); Chloride 103 mmol/L (98-107); Globulin 2.1 g/dL (1.3-4.6); Glomerular Filtration Rate 89.7 mL/min (90-130); Glucose 111 mg/dL (65-115); NT Pro B Type Natriuretic Pept 7 pg/mL (0-125); Osmolality Calculated 289 mOsm/kg (285-295); Potassium 4.6 mmol/L (3.5-5.1); Sodium 141 mmol/L (136-145); Total Bilirubin 0.3 mg/dL (0.15-1.2); Total Protein 6.6 g/dL (6.6-8.7)
[2020-05-11 18:22] LABS: Troponin 5 2HR 11.82 ng/L (0-15)
[2020-05-11 18:26] LABS: Troponin 5 2HR Delta -3.18 ABS# (0-10)
--- NOTE | 2020-05-11 18:42 | ECG_ITS ---
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 Measurements Intervals [place] Rate: 80 P: -6 AR: 135 QRS: 37 QRSD: 110 T: 74 QT: 391 QTc: 452 Interpretive Statements SINUS RHYTHM NONSPECIFIC ST & T-WAVE ABNORMALITY Compared to ECG 05/11/2020 17:04:09 T-wave abnormality now present Electronically Signed On 05-12-2020 19:18:33 CDT by Breonna Mercado M.D. [id number]
[2020-05-11] MEDS: iohexol 350 mg/mL 100 mL Btl IV (18:46)
[2020-05-11 19:37] LABS: ABG PCO2 43.5 mmHg (35-45); ABG PH Result 7.41 (7.35-7.45); Arterial Blood Gas Hematocrit 49.8 % (42-52); Base Excess ABG 2.1 mmol/L (-2.0-2.0); Blood Gas Allen Test Pos; Blood Gas Sample Site Radial, left; Blood Gas Sample Type Arterial; HCO3 ABG 27.3 mmol/L (22-26); Oxygen Device NC; PO2 ABG 68.3 mmHg (80.0-100.0)
--- NOTE | 2020-05-11 19:53 | P.HP_ITS ---
Providers/Chief Complaint Primary Care Provider: Arsen Hernandez Chief Complaint: cHEST pAIN SOB History of Present Illness Jesse Carbajal is a 49 year old male with reported history of SC, previously assessed at [facility], although does not remember that he has had an angiogram done before, thinks that perhaps he may have. States that this was about a couple of years ago. Also describes history of CVA for which she was transferred to in [place]. Reports that he received TPA. He reports also chronic pain secondary to degenerative disc disease in his neck and back. He reports that today around 3 PM he started having chest pressure, as well as sharp pain, centrally, radiating to his left arm, which she describes as severe, without significant trigger, does say that deep inspiration would exacerbate the symptoms. Chest pain was accompanied by shortness of breath. He overall states that he has been having cough for about 4 months, is productive of sputum but he did not look if there was any change in color. States that he usually just spits it up. He does say he has been coughing more recently than usual. He denies any fever, chills, headache, loss of sensation of smell, or other symptoms of viral illness. He reports that around 3:30 PM EMS arrived, and he received nitroglycerin and aspirin from them, giving some relief of pain, with pain mostly resolving with assessment here in the emergency department. He does report he is still a current smoker about 1 pack/day. He reports known history of sleep apnea, and says that he has tried CPAP and BiPAP, but neither had worked for him in the past. He thinks that he may have had a pulmonary function test in the past, and says that he subjectively feels he has had on and off asthma for several years, however, reports that was never truly told any diagnosis after his assessment. In ER his first and second troponin as well as EKG without signs of acute SC. D-dimer was found elevated, and so he received assessment by CTA without finding of PE or other acute abnormality. He is found hypoxemic at PO2 60.3, on 2 L nasal cannula. He is not normally on oxygen. He is reported to have had wheezing for which he received terbutaline and Solu- Medrol by EMS. He reports his breathing symptoms improved with improvement and symptoms of chest pain. He has noticed some although much milder on and off chest pain episodes over the past week. Review of Systems Const: Denies: fever(s), chills, body aches or malaise Eyes: Denies: change in vision or eye redness ENMT: Denies: throat pain, oral sores or ear or mastoid pain Card: Reports: chest pain and orthopnea (Reports prefers sleeping with slight head of bed elevation due to back problems.); Denies: edema, pre-syncope or dyspnea on exertion Resp: Reports: dyspnea; Denies: productive cough, change in phlegm color or hemoptysis GI: Denies: abdominal pain, nausea, vomiting, diarrhea, constipation, hematochezia or melena : Denies: flank pain, difficulty urinating or hematuria Musc: Reports: extremity swelling (Has been happening for a while, also with some skin color changes in distal shins.); Denies: back pain, joint swelling or joint redness Skin/Breast: Denies: rash, sores or new lesions Neuro: Denies: headache(s), numbness in extremities, weakness in extremities, dizziness, confusion or seizure-like activity Endo: Denies: polyuria or polydipsia Laz/Lymph: Denies: easy bleeding or purpura All/Imm: Denies: urticaria, throat swelling or tongue swelling Medications/Allergies Home Medications Medication Instructions Recorded Confirmed Last Taken Type clopidogrel 75 mg tablet 75 mg PO DAILY 12/17/19 05/11/20 05/11/20 History trazodone 150 mg tablet 150 mg PO BEDTIME tab 12/17/19 05/11/20 05/10/20 History atorvastatin 40 mg tablet 40 mg PO DAILY 01/16/20 05/11/20 05/11/20 History cyclobenzaprine 10 mg tablet 10 mg PO TID PRN #90 tab MDD 3 04/23/20 05/11/20 Unknown Rx bupropion HCl 150 mg PO BID 05/11/20 05/11/20 05/11/20 History lisinopril 5 mg PO DAILY 05/11/20 05/11/20 05/11/20 History Allergies Allergy/AdvReac Type Severity Reaction Status Date / Time Bleach (Sodium Hypochlorite) Allergy ALGY-Anaphy Verified 05/11/20 17:49 laxis Penicillins Allergy ALGY-Anaphy Verified 05/11/20 17:49 laxis PFSH Acute PFSH: Medical History CAD (coronary artery disease) Cervical disc disorder with myelopathy of mid-cervical region CVA (cerebral vascular accident) Status post laminectomy with spinal fusion Surgical History History of back surgery 06/2015 [place], [place]. Lumbar fusion/fixation. multilevel pedicle screw fixation T10 and S1 with bilateral iliac screws. Interbody fusion L4-L5. 06/2009 [place], [place] Lumbar fusion/fixation Family History Mother Cancer Hypertension Father Cancer Hypertension Stroke Grandmother Cancer Grandfather Cancer Social History Smoking and tobacco status: current every day smoker Alcohol intake: never Household members: none Marital status: Current occupational status: disabled History of recent travel: No Vitals/I&O/Wt Last Vital Signs Temp 98.9 F 05/11/20 16:56 Pulse 97 05/11/20 16:56 Resp 10 L 05/11/20 16:56 BP 119/76 05/11/20 16:56 Pulse Ox 93 05/11/20 16:56 Weight last 48 hrs Weight 154.221 kg Physical Exam Const: COMMON NORMALS: no acute distress and patient oriented x3 NUTRITIONAL APPEARANCE: overweight HENMT: COMMON NORMALS: oropharynx normal Neck/C-Spine: COMMON NORMALS: no JVD Resp: COMMON NORMALS: normal respiratory effort and clear to auscultation bilaterally AUSCULTATION: clear to auscultation bilaterally Cardio: COMMON NORMALS: no JVD, regular rhythm, S1 normal heart sound present, S2 normal heart sound present and No murmurs present (Cardio) RHYTHM: regular rhythm HEART SOUNDS: S1 normal heart sound present and S2 normal heart sound present GI: COMMON NORMALS: Normal to inspection, nondistended, normoactive bowel sounds present, Soft to palpation and non-tender PALPATION: Yes Soft to palpation Extremity: COMMON NORMALS: no joint enlargement and no pedal edema Neuro: COMMON NORMALS: patient oriented x3 and moves all extremities Skin: COMMON NORMALS: no rashes or lesions noted GENERAL SKIN EXAM: no rashes or lesions noted Data : 05/11/20 15:57 05/11/20 15:57 A&P Assessment and plan (1) Chest pain: Chest pain episode at home from 3:00, lasting up until arrival and treatment here in ER. But does say that gotten some relief from nitroglycerin and aspirin given by EMS which arrived around probably around 330. He says that he has a history of heart attack several years ago, and says that he had subsequently had assessment at [facility], although does not remember whether or not he has had an angiogram at that time, although he may have. Does not remember history of stents. At this time he is chest pain-free. No sign of acute SC. For now unstable angina is not suspected. Suspect for now rather possibly stable angina, versus musculoskeletal pain, he does say his pain is reproducible by palpation. He has been coughing recently more. And some wheezing on exam. Coughing up phlegm. F irst troponin and EKG sets not suggestive of acute SC. If he does well overnight, for now discussed with him and he is in agreement for tentative plan for stress testing tomorrow. In the meantime records are being requested from [facility]. No PE. Status: Acute (2) CAD (coronary artery disease): Possibly. He does not remember assessment by stress test. He is not sure but thinks he may have had an angiogram over at [facility]. Continue Plavix, statin. Although not clear history of CAD, suspected rather these medications are for his past CVA, which he confirms. Status: Acute (3) Wheezing: Appears to have bronchitis, and with chronic smoking, states previously 3 packs a day, currently down to 1 pack/day, suspect he may be developing COPD. Discussed so much with him. He states understanding and agreement, and does remember having a pulmonary function test in the past at some point, but says it may have been several years, and does not remember that he was ever told what the results were. For now we will treat with breathing treatment, continue steroid, he does provide history of productive phlegm. Will request for sputum sample. If appears purulent may benefit from antibiotic as well. For now hold off. Would benefit from smoking cessation. Would benefit from follow-up with pulmonary function testing if recent results cannot be obtained. Currently he is doing well on 2 L nasal cannula. Attempt to titrate oxygen down. Assess for home O2 prior to discharge. Due to hypoxia, reports of peripheral leg swelling, questionable history of CAD, will assess by TTE. He does state that he prefers sleeping in a more upright position, although this appears to be probably more secondary to chronic back pain. No other symptoms to suggest concern for COVID19 at this time. Status: Acute Additional A&P Information History of CVA: Assessed at after receiving TPA at [facility] per report. Medical records would be beneficial. Smoking addiction: Discussed for 3-1/2 minutes. He states he has been trying to quit. He says he cut down from 3 packs/day to 1 pack/day. Will provide option for nicotine replacement. Please continue to discuss/encourage cessation. Degenerative disc disease. Attestations Medical Necessity Statement*: Place in observation. Coding Level of Care Code Acute Radio Division Officer for Kenyg Fwd Exam Comprehensive Diagnoses Chest pain R07.9 CAD (coronary artery disease) I25.10 Wheezing R06.2
[2020-05-11 19:56] VITALS: BP 128/77; PULSE 84; RESP 14; O2SAT 99
[2020-05-11 22:07] LABS: Troponin 5 6HR 10.02 ng/L (0-15)
[2020-05-11 22:19] VITALS: BP 134/67; PULSE 78; RESP 18; O2SAT 93
[2020-05-11 22:22] LABS: Troponin 5 6HR Delta -4.98 ng/L (0-12)
--- NOTE | 2020-05-11 22:42 | ECG_ITS ---
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 Measurements Intervals Hermon Rate: 76 P: -10 NH: 139 QRS: 84 QRSD: 107 T: 72 QT: 391 QTc: 440 Interpretive Statements SINUS RHYTHM Compared to ECG 05/11/2020 18:17:14 T-wave abnormality no longer present Electronically Signed On 05-12-2020 19:19:10 CDT by Breonna Mercado M.D. [id number]
[2020-05-11] MEDS: sodium chloride 0.9% 1,000 ML 100 ML IV (23:04)
[2020-05-11 23:05] VITALS: RESP 18
[2020-05-11] MEDS: morphine 4 mg/mL SDV 1 mL IVP (23:05)
[2020-05-11] MEDS: cyclobenzaprine 10 mg Tablet PO (23:05)
[2020-05-11] MEDS: buPROPion SR (12 HR) 150 mg Tablet PO (23:05)
[2020-05-11] MEDS: trazodone 150 mg Tablet PO (23:05)
[2020-05-11] MEDS: heparin 5,000 unit/mL INJ 1 mL 5000 UNIT SUBCUT (23:05)
[2020-05-11 23:23] VITALS: PULSE 94; RESP 19; O2SAT 93
[2020-05-12] VITALS (11 sets, daily range): BP systolic 138–165; BP diastolic 63–100; PULSE 78–109; RESP 18–20; TEMP 36.6–37; O2SAT 91–95
[2020-05-12] MEDS: lidocaine 5% Patch 1 PATCH TOPICAL (00:20)
[2020-05-12] MEDS: HYDROcodone-acetaminophen 5-325 mg Tablet 1 TAB PO (00:20)
[2020-05-12] MEDS: ondansetron 2 mg/ML SDV 2 mL 4 MG IVP (02:41)
[2020-05-12] MEDS: pantoprazole DR 40 mg Tablet PO (03:09)
[2020-05-12] MEDS: calcium carbonate 500 mg Chew Tablet PO (03:23)
[2020-05-12] MEDS: ipratropium-albuterol 3 mL Neb INHALATION ×2 (03:44→09:01)
[2020-05-12 03:56] LABS: Basophils % 0.1 %; Hematocrit 47.9 % (42.0-52.0); Lymphocytes # 0.9 10^3/uL (0.8-4.8); Lymphocytes % 6.2 %; Mean Corpuscular HGB Conc 33.4 g/dL (30.0-36.0); Mean Corpuscular Hemoglobin 31.3 pg (28.0-34.0); Mean Corpuscular Volume 93.6 fL (80-94); Mean Platelet Volume 9.2 fL (7.4-10.4); Monocytes # 0.3 10^3/uL (0.2-0.9); Neutrophils # 13.95 10^3/uL (1.8-7.7); Neutrophils % 91.3 %; Nucleated Red Blood Cells % 0 %; Platelet Count 271 10^3/cmm (130-400); Red Blood Count 5.12 10^6/uL (4.1-5.3); Red Cell Distribution Width 12.8 % (12.1-15.1); White Blood Count 15.3 10^3/uL (4.0-10.0)
[2020-05-12] MEDS: morphine 4 mg/mL SDV 1 mL IVP ×2 (03:59→09:15)
[2020-05-12 04:18] LABS: Anion Gap 13.8 (5-19); Blood Urea Nitrogen 13 mg/dL (6-20); Calcium 9.4 mg/dL (8.5-10.5); Carbon Dioxide 26 mmol/L (22-29); Chloride 103 mmol/L (98-107); Glomerular Filtration Rate 89.7 mL/min (90-130); Glucose 182 mg/dL (65-115); Osmolality Calculated 287 mOsm/kg (285-295); Potassium 4.8 mmol/L (3.5-5.1); Sodium 138 mmol/L (136-145)
[2020-05-12] MEDS: heparin 5,000 unit/mL INJ 1 mL 5000 UNIT SUBCUT ×2 (06:14→15:22)
[2020-05-12] MEDS: regadenoson 0.4 Mg/5 ml Syringe IVP (07:53)
[2020-05-12] MEDS: atorvastatin 40 mg Tablet PO (09:10)
[2020-05-12] MEDS: buPROPion SR (12 HR) 150 mg Tablet PO (09:10)
[2020-05-12] MEDS: clopidogrel 75 mg Tablet PO (09:10)
[2020-05-12] MEDS: lisinopril 5 mg Tablet PO (09:10)
--- NOTE | 2020-05-12 09:32 | ECG_ITS ---
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 Interpretive Statements NAME OF STUDY: LEXISCAN SESTAMIBI STRESS TEST INDICATION: Chest Pain PROCEDURE: At the baseline, the blood pressure was 180/98 mmHg with a heart rate of 78 bpm. The electrocardiogram showed normal sinus rhythm, normal axis. Baseline artifact. Nonspecific ST changes. The Lexiscan was infused over a period of 20 seconds. A total of 0.4 milligrams of Lexiscan was infused. The stress phase was continued for a total of 5 minutes. Heart rate at the end of the stress phase was 96 bpm with a blood pressure 170/69 mmHg. The EKG at the peak infusion revealed sinus rhythm with no significant ST-T wave changes. Sestamibi was injected 20 seconds after the Lexiscan infusion. Blood pressure at the end of the recovery phase was 184/69 mmHg with a heart rate of 101 beats per minute. CONCLUSION: 1. No significant EKG changes with the LexiScan infusion. 2. No LexiScan induced chest pain or cardiac arrhythmia. 3. Normal blood pressure and heart rate response. 4. Sestamibi/sestamibi perfusion scan pending; see separate report. Electronically Signed On 05-13-2020 17:38:51 CDT by Kenyatta Mitchell M.D. [id number]
--- NOTE | 2020-05-12 10:53 | PC.CHAP ---
Pastoral Care Encounter/Spiritual Assessment Type of Contact [] Declined heel breaster visit [] Patient/Family/Request visit [] Outpatient visit [] Follow-up visit [] Physician referral [] Code/Alert [x] Routine visit [] Staff referral [] Actively dying [] Patient sleeping [] Family support [] [] Out of room [] Palliative care [] [x] Receiving care in room [] Pre-surgical visit [] Trauma [] Long length of stay [] ICU visit [] Other: Relational/Emotional Strength [x] Patient feels connected with others/family/visitors/staff [] Distress [] Loneliness/isolation [] Abandonment Spirituality of Patient [x] Person of Sommer [] Attends Latter-Day of their [place] [x] Believes in Prayer [] Reads Bible or Faith materials [] There are Spiritual issues to be addressed Brush Head Maker Interventions [x] Prayer [x] Active listening [x] Non-anxious presence [x] Spiritual/emotional support [] Crisis/trauma care [x] Spiritual counseling [] Bereavement support [] Provided bereavement packet [] Provided Bible/devotional materials [] Provided toy/stuffed animal, coloring book to patient or family member [] Provided Communion [] Anointing/Jackson [] Salvation [x] Completed spiritual assessment [] Other: Impact on Illness or Injury [] Angry [] Fearful [] Anxious [] Often cries [] Exhaustion [] Unable to work [] Unable to attend catholic [] Unable to walk/stand [] Unable to read [] Unable to drive [] Unable to eat/drink [] Unable to sleep [] Unable to be with family [] Patient intubated [] Other: Summary Tests, heart OK, feels good, good attitude, going home Time spent with patient 10 mins
[2020-05-12 14:55] LABS: Estmated Average Glucose 126
--- NOTE | 2020-05-12 15:32 | P.DS_ITS ---
Discharge Providers Date of Admission: 05/11/20 19:51 Date of Discharge: May 12, 2020 Attending Provider at Admission: Yogi Casas Attending Provider at Discharge: Dominic Rich MD Primary Care Provider: Arsen Hernandez Diagnoses at Discharge Discharge Diagnosis (1) Chest pain: Status: Acute (2) CAD (coronary artery disease): Status: Acute (3) Wheezing: Status: Acute Reason for Visit Reason for Visit: cHEST pAIN SOB Hospital Course Discharge Summary: 49-year-old male with past medical history of CVA, SC, cervical disc disease, degenerative disc disease of the back, history of back surgeries, on Plavix, statin who presents [facility] due to complaints of chest pain Patient was admitted for chest pain, patient's baseline troponin was 15, 6-hour 10, delta 4.98, EKG showed no significant ST-T wave changes, cardiac stress test showed: - Small area of fixed perfusion defect noted in basal to mid anterior and basal to mid inferior wall suggestive of old myocardial infarction versus scarring. Please note that patient was not able to perform the prone images therefore cannot rule out artifact as well.TID ratio was elevated which could be secondary left-ventricular hypertrophy/subendocardial ischemia in the absence of other parameters for coronary artery disease. Patient remained symptom-free, no shortness of breath, no chest pain and was ready to go home on discharge Patient was discharged home on his home Plavix, statin, with a close follow-up with cardiology as outpatient. Patient was advised that if he were to have recurrent chest pain to come back to the emergency room. On admission, patient was found to have wheezing, elevated d-dimer, CTA showed no significant evidence of pulmonary embolism, is a chronic smoker. Patient was advised to quit smoking as he might have early signs of COPD. Likely patient had a mild COPD exacerbation, discharged on a prednisone burst, on albuterol inhaler as needed. Patient will require an outpatient follow with primary care provider for pulmonary function testing. Patient's echocardiogram is pending on discharge, should be followed up by outpatient physician and/or cardiology. Physical Exam Const: COMMON NORMALS: no acute distress and patient oriented x3 HENMT: COMMON NORMALS: normocephalic HEAD & SCALP: normocephalic Neck/C-Spine: COMMON NORMALS: no JVD Resp: COMMON NORMALS: normal respiratory effort, No retractions, No use of accessory muscles and clear to auscultation bilaterally AUSCULTATION: clear to auscultation bilaterally Cardio: COMMON NORMALS: no JVD, regular rate, regular rhythm, S1 normal heart sound present and S2 normal heart sound present RATE: regular rate RHYTHM: regular rhythm HEART SOUNDS: S1 normal heart sound present and S2 normal heart sound present GI: COMMON NORMALS: Normal to inspection, nondistended, normoactive bowel sounds present, Soft to palpation, non-tender, No hepatosplenomegaly present, no masses and no bruits PALPATION: Yes Soft to palpation and Yes No hepatosplenomegaly present Extremity: COMMON NORMALS: capillary refill normal, no clubbing, cyanosis or edema, no calf tenderness and no pedal edema Neuro: COMMON NORMALS: patient oriented x3 Psych: COMMON NORMALS: mental status grossly normal Discharge Data Data Completed and Pending: Completed Studies During Hospitalization Category Date Time Status CT angio chest PE protcl [id number] Urge nt Cat Scan 05/11/20 17:33 Completed Sestamibi Stress Test Request Routi ne Exams 05/12/20 09:32 Draft XR chest 1V roberto ble [id number] Stat Exams 05/11/20 16:42 Completed Pending at discharge Category Date Time Status Sputum Culture an d Gram Stain Routi ne Lab 05/11/20 22:42 Results NM reilly perf SPECT r/s* [id number] Routin e Nuc Med 05/12/20 22:42 Taken CV echo complete* [id number] Routine Ultrasound 05/12/20 10:08 Ordered Labs from last 24 hours 05/12/20 05/12/20 05/12/20 03:49 03:40 03:40 WBC 15.3 H RBC 5.12 Hgb 16.0 Hct 47.9 MCV 93.6 MCH 31.3 MCHC 33.4 RDW 12.8 Plt Count 271 MPV 9.2 Neut % (Auto) 91.3 Lymph % (Auto) 6.2 Cass % (Auto) 2.0 Eos % (Auto) 0.0 Baso % (Auto) 0.1 Neut # (Auto) 13.95 H Lymph # (Auto) 0.9 Cass # (Auto) 0.3 Eos # (Auto) 0.0 Baso # (Auto) 0.0 Nucleated RBC % (a uto) 0 Nucleated RBCs # 0.0 PT INR D-Dimer Specimen Type Sample Site ABG pH ABG pCO2 ABG pO2 ABG HCO3 ABG Base Excess Femi Test Hematocrit O2 Delivery Device O2 Liters/Min Obstetrics/Gynecology Nurse ID Sodium 138 Potassium 4.8 Chloride 103 Carbon Dioxide 26 Anion Gap 13.8 BUN 13 Creatinine 0.9 GFR Calculation 89.7 L Glucose 182 H Estimat Average Gl ucose 126 Hemoglobin A1c 6.0 Calculated Osmolal ity 287 Calcium 9.4 Total Bilirubin AST ALT Alkaline Phosphata se Troponin T Baselin e Troponin T 120 Min [place] Delta Troponin T Troponin T Hi Sens 6Hr Troponin T Hi Sens 6Hr Delta NT-Pro-B Natriuret Pep Total Protein Albumin Globulin 05/11/20 05/11/20 05/11/20 21:49 19:30 17:57 WBC RBC Hgb Hct MCV MCH MCHC RDW Plt Count MPV Neut % (Auto) Lymph % (Auto) Cass % (Auto) Eos % (Auto) Baso % (Auto) Neut # (Auto) Lymph # (Auto) Cass # (Auto) Eos # (Auto) Baso # (Auto) Nucleated RBC % (a uto) Nucleated RBCs # PT INR D-Dimer Specimen Type Arterial Sample Site Radial, left ABG pH 7.41 ABG pCO2 43.5 ABG pO2 68.3 L ABG HCO3 27.3 H ABG Base Excess 2.1 H Femi Test Pos Hematocrit 49.8 O2 Delivery Device Nc O2 Liters/Min 2.0 Obstetrics/Gynecology Nurse ID [email or web address] Sodium Potassium Chloride Carbon Dioxide Anion Gap BUN Creatinine GFR Calculation Glucose Estimat Average Gl ucose Hemoglobin A1c Calculated Osmolal ity Calcium Total Bilirubin AST ALT Alkaline Phosphata se Troponin T Baselin e Troponin T 120 Min [place] 11.82 Delta Troponin T -3.18 L Troponin T Hi Sens 6Hr 10.02 Troponin T Hi Sens 6Hr Delta -4.98 L NT-Pro-B Natriuret Pep Total Protein Albumin Globulin 05/11/20 05/11/20 05/11/20 15:57 15:57 15:57 WBC RBC Hgb Hct MCV MCH MCHC RDW Plt Count MPV Neut % (Auto) Lymph % (Auto) Cass % (Auto) Eos % (Auto) Baso % (Auto) Neut # (Auto) Lymph # (Auto) Cass # (Auto) Eos # (Auto) Baso # (Auto) Nucleated RBC % (a uto) Nucleated RBCs # PT 13.10 INR 0.96 D-Dimer 0.73 H Specimen Type Sample Site ABG pH ABG pCO2 ABG pO2 ABG HCO3 ABG Base Excess Femi Test Hematocrit O2 Delivery Device O2 Liters/Min Obstetrics/Gynecology Nurse ID Sodium 141 Potassium 4.6 Chloride 103 Carbon Dioxide 28 Anion Gap 14.6 BUN 12 Creatinine 0.9 GFR Calculation 89.7 L Glucose 111 Estimat Average Gl ucose Hemoglobin A1c Calculated Osmolal ity 289 Calcium 10.2 Total Bilirubin 0.3 AST 21 ALT 28 Alkaline Phosphata se 75 Troponin T Baselin e 15 Troponin T 120 Min [place] Delta Troponin T Troponin T Hi Sens 6Hr Troponin T Hi Sens 6Hr Delta NT-Pro-B Natriuret Pep 7 Total Protein 6.6 Albumin 4.5 Globulin 2.1 05/11/20 15:57 WBC 8.4 RBC 5.29 Hgb 16.1 Hct 48.4 MCV 91.5 MCH 30.4 MCHC 33.3 RDW 12.7 Plt Count 293 MPV 9.8 Neut % (Auto) 58.2 Lymph % (Auto) 25.8 Cass % (Auto) 11.9 Eos % (Auto) 3.1 Baso % (Auto) 0.6 Neut # (Auto) 4.88 Lymph # (Auto) 2.2 Cass # (Auto) 1.0 H Eos # (Auto) 0.3 Baso # (Auto) 0.1 Nucleated RBC % (a uto) 0 Nucleated RBCs # 0.0 PT INR D-Dimer Specimen Type Sample Site ABG pH ABG pCO2 ABG pO2 ABG HCO3 ABG Base Excess Femi Test Hematocrit O2 Delivery Device O2 Liters/Min Obstetrics/Gynecology Nurse ID Sodium Potassium Chloride Carbon Dioxide Anion Gap BUN Creatinine GFR Calculation Glucose Estimat Average Gl ucose Hemoglobin A1c Calculated Osmolal ity Calcium Total Bilirubin AST ALT Alkaline Phosphata se Troponin T Baselin e Troponin T 120 Min [place] Delta Troponin T Troponin T Hi Sens 6Hr Troponin T Hi Sens 6Hr Delta NT-Pro-B Natriuret Pep Total Protein Albumin Globulin Vitals: Last Vital Signs Temp 98.6 F 05/12/20 11:44 Pulse 104 H 05/12/20 11:44 Resp 20 H 05/12/20 11:44 BP 155/71 05/12/20 11:44 Pulse Ox 91 05/12/20 11:44 Discharge Plan Discharge Patient Disposition: Home, Self-Care Condition: Stable Prescriptions: New prednisone 20 mg tablet 20 mg PO BID 5 Days Qty: 10 RF: 0 albuterol sulfate 90 mcg/actuation aero powdr breath act w/sensor 1 inh INHALATION Q6H PRN (Reason: shortness of breath or wheezing) Qty: 1 RF: 0 Continued trazodone 150 mg tablet 150 mg PO BEDTIME RF: 0 clopidogrel [Plavix] 75 mg tablet 75 mg PO DAILY RF: 0 atorvastatin 40 mg tablet 40 mg PO DAILY RF: 0 cyclobenzaprine 10 mg tablet 10 mg PO TID MDD 3 PRN (Reason: muscle spasm) Qty: 90 RF: 0 bupropion HCl 150 mg tablet sustained-release 12 hr 150 mg PO BID RF: 0 lisinopril 5 mg tablet 5 mg PO DAILY RF: 0 Referrals: Breonna Mercado MD [Physician] - 1 month Arsen Hernandez [Primary Care Provider] - Discharge Diet: Cardiac Discharge Activity: Resume usual activity Patient Instructions: Angina (GEN), Chest Pain (DC), How to Stop Smoking (DC), How to Stop Smoking (GEN) Activity Restrictions/Additional Instructions: -Please stop smoking -If you chest pain please call 911 or go to the emergency room Discharge Attestations Time Spent in Discharge Care*: less than 30 min Quality Metrics Clinical Quality Measures During this hospital stay, did patient experience: None Coding Level of Care Code Acute Hog Slaughterer for Smiley Fwd Exam Comprehensive Diagnoses Chest pain R07.9 CAD (coronary artery disease) I25.10 Wheezing R06.2
--- NOTE | 2020-05-12 22:42 | NMCV_ITS ---
NM reilly perf SPECT r/s* [id number] Jesse Carbajal Age: 49 Gender: M : 1970 Exam Date: 05/12/2020 06:51 Ordering Phys: Yogi Casas MD Technologist: JASPREET Lawton Exam Location: [facility] Indications: CHEST PAIN, SOB STRESS TEST Please see separate stress test [facility] for full findings IMAGE PROTOCOL Rest/Stress 1 Lexiscan Day Radiopharmaceutical Dose (mCi) Administration Site Administered by Rest: Tc-99m 11.0 IV JASPREET Barajas Sestamibi Stress:Tc-99m 33.0 IV JASPREET Barajas Sestamibi Rest: 12-May-2020 60 Discovery 630 Stress: 12-May-2020 30 Discovery 630 0.4mg Lexiscan. Supine position only as patient was unable to lay prone. SPECT RESULTS Technical Quality: Excellent Raw Data Analysis: Normal Image Corrections: No attenuation or motion correction applied Summed Stress Score: 0 Summed Rest Score: 0 Summed Difference Score: 0 PERFUSION FINDINGS Small area of fixed perfusion defect is noted in basal to mid anterior and basal to mid inferior and inferolateral wall suggestive of old myocardial infarction versus scarring please note that in the absence of prone images cannot rule out artifact. FUNCTIONAL RESULTS (calculated via Gated SPECT) Stress Image LV EF (%): 81 Stress EDV (mL):187 TID: 1.32 Stress ESV (mL):36 Rest Image LV EF (%): 81 FUNCTIONAL FINDINGS: Hyperdynamic left ventricle, estimated ejection fraction 81% IMPRESSIONS Small area of fixed perfusion defect noted in basal to mid anterior and basal to mid inferior wall suggestive of old myocardial infarction versus scarring. Please note that patient was not able to perform the prone images therefore cannot rule out artifact as well.TID ratio was elevated which could be secondary left-ventricular hypertrophy/subendocardial ischemia in the absence of other parameters for coronary artery disease. EKG segment will be documented separately. Breonna Mercado MD (Electronically Signed) Final Date: 12 May 2020 15:41 S
--- NOTE | 2020-05-13 12:42 | PC.RESP ---
Smoking Cessation information sent to patient.
--- NOTE | 2020-05-18 09:18 | PM.MISC ---
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 He did not have any invasive infection at the time of admission. Notified his PCP of the result who will follow up with regards to this in office.
== END 2020-05-12 16:54 | disposition home or self-care (01) ==
LOC: ER 20:18 → MEDSURG 20:33
PROVIDERS: Emergency Medicine; Admitting Provider Internal Medicine; Emergency Provider Emergency Medicine; PCP Family Medicine; Visit Provider Family Medicine
DX: R07.9 Chest pain, unspecified (principal); I25.10 Atherosclerotic heart disease of native coronary artery without angina pectoris; R06.2 Wheezing; Z86.73 Personal history of transient ischemic attack (TIA), and cerebral infarction without residual deficits; M19.90 Unspecified osteoarthritis, unspecified site; I25.2 Old myocardial infarction; Z98.1 Arthrodesis status; F17.210 Nicotine dependence, cigarettes, uncomplicated
CPT/HCPCS: 12345; 36415; 36600; 71045; 71275; 78452; 80048; 80053; 82803; 83036; 83880; 84484; 85025; 85378; 85610; 87070; 87077; 87205; 93005; 93017; 94640; 96372; 96375; 99284; 99285; A9500; G0378; J1644; J2270; J2405; J2785; J2930; J7030; Q9967

== ENCOUNTER → 2020-05-29 09:24 | Outpatient (BNVA) | payer MEDICAID, SELFPAY | PROVIDERS: PCP Family Medicine; Visit Provider Anesthesiology Pain Medicine | DX: M50.020 Cervical disc disorder with myelopathy, mid-cervical region, unspecified level (principal); M54.12 Radiculopathy, cervical region; M47.812 Spondylosis without myelopathy or radiculopathy, cervical region; M54.5 Low back pain; M96.1 Postlaminectomy syndrome, not elsewhere classified; M62.830 Muscle spasm of back; F17.210 Nicotine dependence, cigarettes, uncomplicated; Z98.1 Arthrodesis status; Z98.890 Other specified postprocedural states | CPT/HCPCS: 99213; 99214 ==

== ENCOUNTER → 2020-07-30 09:19 | Outpatient (BNVA) | payer MEDICAID, SELFPAY | PROVIDERS: PCP Family Medicine; Visit Provider Anesthesiology Pain Medicine | DX: M54.41 Lumbago with sciatica, right side (principal); M79.604 Pain in right leg; M50.020 Cervical disc disorder with myelopathy, mid-cervical region, unspecified level; M47.812 Spondylosis without myelopathy or radiculopathy, cervical region; M54.12 Radiculopathy, cervical region; M96.1 Postlaminectomy syndrome, not elsewhere classified; M62.830 Muscle spasm of back; F17.210 Nicotine dependence, cigarettes, uncomplicated; Z98.1 Arthrodesis status; Z98.890 Other specified postprocedural states; Z79.891 Long term (current) use of opiate analgesic | CPT/HCPCS: 99213; 99214 ==

== ENCOUNTER → 2020-08-28 10:44 | Outpatient (BNVA) | payer MEDICAID, SELFPAY | PROVIDERS: PCP Family Medicine; Visit Provider Anesthesiology Pain Medicine | DX: M54.5 Low back pain (principal); M50.020 Cervical disc disorder with myelopathy, mid-cervical region, unspecified level; M54.12 Radiculopathy, cervical region; M47.812 Spondylosis without myelopathy or radiculopathy, cervical region; M96.1 Postlaminectomy syndrome, not elsewhere classified; M62.830 Muscle spasm of back; Z98.890 Other specified postprocedural states; Z79.891 Long term (current) use of opiate analgesic; Z98.1 Arthrodesis status; F17.210 Nicotine dependence, cigarettes, uncomplicated | CPT/HCPCS: 99214; 99215 ==

== ENCOUNTER 2020-08-31 13:31 | Outpatient (CLI) | payer MEDICAID, SELFPAY ==
--- NOTE | 2020-08-31 13:45 | XRR_ITS ---
PROCEDURE INFORMATION: Exam: XR Abdomen, 1 View Exam date and time: 08/31/2020 1:37 PM Age: 49 years old Clinical indication: Condition or disease; Other: Nephrolithiasis; Prior surgery; Surgery type: Spinal TECHNIQUE: Imaging protocol: XR of the abdomen. Views: Frontal supine view of the abdomen. 1 View. COMPARISON: CT Abdomen/Pelvis Renal 88779 08/14/2020 2:41 PM FINDINGS: Three 1.6 cm faintly calcified gallstones. Right kidney obscured by stool and bowel gas. 9, 6 and 3.5 mm left renal stones. Spinal fixation hardware in place. Lucency about the lower lumbar and iliac screws, unchanged. XR/XR KUB 37515 IMPRESSION: 1.) Gallstones. 2.) At least 3 small left renal stones. Right kidney obscured by stool.
== END 2020-08-31 13:32 | disposition home or self-care (01) ==
LOC: RAD 13:35
PROVIDERS: PCP Family Medicine; Visit Provider Nurse Practitioner Family
DX: N20.0 Calculus of kidney (principal); K80.80 Other cholelithiasis without obstruction
CPT/HCPCS: 74018; 80053; 81003; 88112

== ENCOUNTER → 2020-09-01 13:50 | Outpatient (BNVA) | payer MEDICAID, SELFPAY | PROVIDERS: PCP Family Medicine; Visit Provider Anesthesiology Pain Medicine | DX: M50.020 Cervical disc disorder with myelopathy, mid-cervical region, unspecified level (principal); M54.12 Radiculopathy, cervical region; M47.812 Spondylosis without myelopathy or radiculopathy, cervical region; M54.5 Low back pain; M96.1 Postlaminectomy syndrome, not elsewhere classified; M62.830 Muscle spasm of back; M54.9 Dorsalgia, unspecified; Z98.1 Arthrodesis status | CPT/HCPCS: 64483; 64484; 99213; J1100; J3490 ==

== ENCOUNTER → 2020-09-03 11:05 | Outpatient (BNVA) | payer MEDICAID, SELFPAY | PROVIDERS: PCP Family Medicine; Visit Provider Surgery | DX: Z11.59 Encounter for screening for other viral diseases (principal) | CPT/HCPCS: 87635 ==

== ENCOUNTER 2020-09-07 06:17 | Day surgery (SDC) | payer MEDICAID, SELFPAY ==
[2020-09-04 09:20] VITALS: BMI 42.5
[2020-09-07] VITALS (11 sets, daily range): BP systolic 122–155; BP diastolic 68–95; PULSE 65–83; RESP 16–24; TEMP 36.6–37.6; O2SAT 92–97
[2020-09-07] MEDS: sodium chloride 0.9% 1,000 ML 30 ML IV (06:55)
--- NOTE | 2020-09-07 07:03 | PC.NURSE ---
RT notified of need for albuterol treatment for preop @ 0700 per anesthesia request.
--- NOTE | 2020-09-07 07:14 | P.ANESASSM_ITS ---
Pre-Anesthetic Assessment Pre-Anesthetic Assessment: Height/Weight: Height 1.93 m Weight 158.757 kg Temp Pulse Resp BP Pulse Ox 97.8 F 80 20 H 155/95 94 09/07/20 06:32 09/07/20 06:32 09/07/20 06:32 09/07/20 06:32 09/07/20 06:32 Preop Diagnosis: Cholelithiasis Proposed Procedure: Operation Date: 09/07/20 07:30 Proposed Procedures p Laparoscopic possible open Cholecystectomy 69441 K80.20 (TRANSPORTATION C0600)(Not Applicable) - Rad Leger MD Was Beta Arelis taken within 24 hours: N/A Last intake: Intake Last Liquid Date 09/06/20 Last Liquid Time 19:00 Last Solid Date 09/06/20 Last Solid Time 19:00 Social: Social History: Alcohol (once every 2 weeks) and Tobacco (1/2pk day) Exam: Pre-Anes Outpt Exam: alert, oriented x 3, clear to auscultation bilaterally and regular rate & rhythm Airway: Submandibular: WNL Cervical ROM: WNL MP: 2 Dentition: Full History/ROS: No significant history except as noted and No significant complaints Pulmonary: Pulmonary: Sleep apnea (doesnt use his cpap) CV/HEM: CV/HEM: MT Comments: heart cath clear this year. mild MT reported hx. denies any CP/SOB : Comments: hx stones GI: GI: GERD Metabolic: Metabolic: Morbid obesity Musc/skel: Musc/skel: Lower Back Pain (multiple back sx. lumbar and sacral) Neuropsych: Neuropsych: CVA (no residual problems) Anesthetic Plan: ASA status: 3 Anesthesia: General Meds/Allergies Current Medications: Current Medications Generic Name Dose Route Start Last Admin Trade Name Freq PRN Reason Stop Dose Admin Sodium Chloride 1,000 mls @ 30 ml s/hr 09/07/20 06:30 09/07/20 06:55 Sodium Chloride 0.9% IV 09/08/20 06:29 30 mls/hr .Q24H HAIDER Administration PFSH Anesthesia PFSH: Medical History (Updated 09/02/20 @ 14:21 by Rad Leger MD) CAD (coronary artery disease) Cervical disc disorder with myelopathy of mid-cervical region CVA (cerebral vascular accident) Renal stones Status post laminectomy with spinal fusion Surgical History History of back surgery 06/2015 [place], [place]. Lumbar fusion/fixation. multilevel pedicle screw fixation T10 and S1 with bilateral iliac screws. Interbody fusion L4-L5. 06/2009 [place], [place] Lumbar fusion/fixation Family History Mother Cancer Hypertension Father Cancer Hypertension Stroke Grandmother Cancer Grandfather Cancer Denies family history of Anesthesia complication Bleeding disorder Social History Smoking and tobacco status: current every day smoker cigarettes Packs smoked per day: 1 Alcohol intake: never Lives independently: Yes Household members: none Marital status: Current occupational status: disabled History of recent travel: No Data Anesthesia Cardiac Studies: No Data to Display
[2020-09-07] MEDS: levofloxacin-dextrose 5 % 500 MG/100 ML PREMIX 100 MG IV (07:23)
--- NOTE | 2020-09-07 07:23 | W.PM.OPSUD ---
Surgery/Procedure H&P Update DATE OF PROCEDURE: September 07, 2020 DATE H&P PERFORMED: 08/31/20 H&P UPDATE INFORMATION: I have reviewed H&P completed within last 30 days, I have examined patient prior to procedure and No changes to prior documentation PREOP DIAGNOSIS: Cholelithiasis PLANNED PROCEDURE: Operation Date: 09/07/20 07:30 Proposed Procedures p Laparoscopic possible open Cholecystectomy 95878 K80.20 (TRANSPORTATION C0600)(Not Applicable) - Rad Leger MD
[2020-09-07] MEDS: ipratropium 0.5 mg/2.5 mL Neb INHALATION (07:28)
--- NOTE | 2020-09-07 09:22 | P.OP_ITS ---
Operative Report Date of procedure: September 07, 2020 Pre-op Diagnosis: Cholelithiasis Post-op Diagnosis: Cholelithiasis Hepatomegaly Procedure Done: Laparoscopic cholecystectomy Pathology: Gallbladder Surgeon: Rad Leger Anesthesia: General Procedure: The patient was taken to the operating room and was intubated under general anesthesia. After the antibiotic had been administered, the abdomen was prepped and draped in a sterile manner. Using a #15 blade, a 1 centimeter infraumbilical curvilinear incision was made and using an open Jomar technique the peritoneal cavity was entered. A 10 millimeter port was placed and 15 millimeters of pneumoperitoneum was created. A 10 millimeter, 30 degrees scope was then introduced. Three 5 millimeter ports were placed in the epigastric, midclavicular and the anterior axillary line two fingerbreadths below the costal margin on the right side under the direct visualization. Ratcheted forceps were introduced into the lateral most port and was used to retract the fundus of the gallbladder cephalad and using forceps the infundibulum of the gallbladder was retracted laterally. The patient had a large fatty liver which made exposure difficult. using L-hook cautery the peritoneum overlying the Calot's triangle was opened medially and laterally until the cystic duct and the cystic artery were skeletonized. There was a tear in the body of the gallbladder with a gallbladder was retracted laterally with spillage of 3 large stones and bile which was irrigated and suctioned out. Dissection was carried along the body of the gallbladder and after ensuring critical view of safety, 4 clips applied on the cystic duct and 3 clips applied on the cystic artery and cut leaving, 3 clips on the remaining portion of the duct and 2 clips on the remaining portion of the artery. The rest of the gallbladder was dissected off the liver using L- hook cautery. There was no bleeding or bile leaking noted from the gallbladder fossa and the clips appeared to be in place. An EndoCatch bag was introduced to remove the gallbladder as well as the 3 large stones. All the ports were removed under direct visualization and there was no bleeding noted from the port sites. The fascia of the umbilicus was closed using [id number] 0 Vicryl sutures and the subcutaneous tissue was approximated using 3-0 Vicryl sutures. The skin at all four ports were closed using 4-0 Monocryl and surgical glue. A total of 10 millimeters of 0.5% Marcaine was infiltrated around the port sites. The patient was stable throughout the procedure.
[2020-09-07] MEDS: ondansetron 2 mg/ML SDV 2 mL 4 MG IVP (09:43)
[2020-09-07] MEDS: oxyCODONE-APAP 10-325 mg Tablet 1 TAB PO (09:47)
--- NOTE | 2020-09-07 09:58 | PC.NURSE ---
Notified [facility] transportation of pt's DC. Will be here in 15-20 mins.
--- NOTE | 2020-09-07 15:00 | ANE.PACU2 ---
Inpatient post-anesthesia follow up: Airway intact: Yes Vital signs: Temperature 97.8 F Pulse Rate 80 Respiratory Rate 24 Blood Pressure 128/86 Pulse Oximetry 94 Oxygen Delivery Me thod Nasal Cannula Oxygen Flow Rate 2 Fraction of Inspir ed Oxygen Hydration adequate: Yes Nausea and vomiting: No Pain level: 3 Mental status: Baseline
== END 2020-09-07 10:10 | disposition home or self-care (01) ==
PROVIDERS: PCP Family Medicine; Visit Provider Surgery
PROC: 0FT44ZZ Resection of Gallbladder, Percutaneous Endoscopic Approach (ICD-10-PCS; CPT 47562; principal; 2020-09-07 07:30)
DX: K80.10 Calculus of gallbladder with chronic cholecystitis without obstruction (principal); F17.210 Nicotine dependence, cigarettes, uncomplicated; Z79.02 Long term (current) use of antithrombotics/antiplatelets; Z79.891 Long term (current) use of opiate analgesic; I25.10 Atherosclerotic heart disease of native coronary artery without angina pectoris; Z86.73 Personal history of transient ischemic attack (TIA), and cerebral infarction without residual deficits
CPT/HCPCS: 47562; 12345; 88304; 94640; 96374; J0131; J1100; J1885; J1956; J2405; J2704; J2710; J3010; J3490; J7030; J7611; J7644

== ENCOUNTER → 2020-09-11 10:26 | Outpatient (BNVA) | payer MEDICAID, SELFPAY | PROVIDERS: PCP Family Medicine; Visit Provider Anesthesiology Pain Medicine | DX: M54.42 Lumbago with sciatica, left side (principal); M54.41 Lumbago with sciatica, right side; M96.1 Postlaminectomy syndrome, not elsewhere classified; M50.020 Cervical disc disorder with myelopathy, mid-cervical region, unspecified level; M54.12 Radiculopathy, cervical region; M47.812 Spondylosis without myelopathy or radiculopathy, cervical region; M62.830 Muscle spasm of back; Z98.890 Other specified postprocedural states; Z98.1 Arthrodesis status; F17.210 Nicotine dependence, cigarettes, uncomplicated; Z79.891 Long term (current) use of opiate analgesic | CPT/HCPCS: 99214 ==

== ENCOUNTER → 2020-10-15 11:06 | Outpatient (BNVA) | payer MEDICAID, SELFPAY | PROVIDERS: PCP Family Medicine; Visit Provider Anesthesiology Pain Medicine | DX: M54.5 Low back pain (principal); M96.1 Postlaminectomy syndrome, not elsewhere classified; M50.020 Cervical disc disorder with myelopathy, mid-cervical region, unspecified level; M54.12 Radiculopathy, cervical region; M47.812 Spondylosis without myelopathy or radiculopathy, cervical region; M62.830 Muscle spasm of back; F17.210 Nicotine dependence, cigarettes, uncomplicated; Z98.890 Other specified postprocedural states; Z98.1 Arthrodesis status; Z79.891 Long term (current) use of opiate analgesic | CPT/HCPCS: 99213 ==

== ENCOUNTER → 2020-11-10 10:18 | Outpatient (BNVA) | payer MEDICAID, SELFPAY | PROVIDERS: PCP Family Medicine; Visit Provider Orthopaedic Surgery | DX: M54.5 Low back pain (principal); Z98.1 Arthrodesis status | CPT/HCPCS: 72114 ==

== ENCOUNTER → 2020-12-04 09:58 | Outpatient (BNVA) | payer MEDICAID, SELFPAY | PROVIDERS: PCP Family Medicine; Visit Provider Orthopaedic Surgery | DX: M54.5 Low back pain (principal); Z20.828 Contact with and (suspected) exposure to other viral communicable diseases | CPT/HCPCS: 87635 ==

== ENCOUNTER 2020-12-09 14:14 | Inpatient (IN) | payer MEDICAID, SELFPAY ==
[2020-12-02 09:50] VITALS: BMI 42.5
--- NOTE | 2020-12-02 10:09 | P.ANESASSM_ITS ---
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 Proposed Procedure: Operation Date: 12/09/20 07:00 Proposed Procedures p revision of L3- pelvis [id number] [id number], 88516, 31165, 13420, 79380, 97347 36996 M96.1(Not Applicable) - Kumar Tobin, Familial anesthetic complications: None Social: Social History: Tobacco and No alcohol Exam: Pre-Anes Outpt Exam: alert, oriented x 3, clear to auscultation bilaterally and regular rate & rhythm Airway: Cervical ROM: WNL Dentition: Other (missing teeth) Additional comments: uvula removed Pulmonary: Pulmonary: Sleep apnea CV/HEM: CV/HEM: CAD and [place] (X2, greater than 1 year 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, 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 Lumbar fusion/fixation. multilevel pedicle screw fixation T10 and S1 with bilateral iliac screws. Interbody fusion L4-L5. 06/2009 [place], [place] Lumbar fusion/fixation Status post laparoscopic cholecystectomy (09/07/20) Family History Mother Cancer Hypertension Father Cancer Hypertension Stroke Grandmother Cancer Grandfather Cancer Denies family history of Anesthesia complication Bleeding disorder Social History Smoking and tobacco status: current every day smoker cigarettes Packs smoked per day: 1 Alcohol intake: never Lives independently: Yes Household members: none Marital status: Current occupational status: disabled History of recent travel: No Data Anesthesia Cardiac Studies: No Data to Display
[2020-12-09] VITALS (23 sets, daily range): BP systolic 100–168; BP diastolic 69–126; PULSE 79–122; RESP 15–24; TEMP 36.1–36.5; O2SAT 84–100
--- NOTE | 2020-12-09 | XR_ITS ---
WS: [id number] Lumbar spine, 4 C-arm fluoroscopy views in the OR, 12/09/2020 lumbar spine, 11/10/2020. Clinical Data: REVISON L3-PELVIS FUSION Comparison: Lumbar spine, 11/10/2020. Findings: The patient is had a disc spacer inserted at the L5-S1 space. The complex and long lumbar fusion from L3 through S1 and fusion superior to L3 is seen. There are bilateral pedicle screws with connecting rods. XR/XR lumbar spine 2-3V* [id number] Impression: Insertion of artificial disc into L5-S1.
--- NOTE | 2020-12-09 | SCC_ITS ---
Procedure Done: 1. L5/S1 Interbody fusion with posterolateral fusion 2. Instrumentation L3-Pelvis 3. Cage at L5/S1 4. Revision Laminectomy L5 for decompression of S1 nerve 5. use of autograft from same incision 6. allograft 7. Bone marrow aspirate from pedicle 8. Fusion from L3 to pelvis 13.2 seconds of fluoroscopic guidance, for a cumulative dose of 88.35 mGy, was provided to Dr. Tobin by the radiology department. C-arm images of the lumbar spine were saved for the patient's permanent record. ACE
--- NOTE | 2020-12-09 06:41 | W.PM.OPSUD ---
Surgery/Procedure H&P Update DATE OF PROCEDURE: December 09, 2020 DATE H&P PERFORMED: 11/10/20 H&P UPDATE INFORMATION: I have reviewed H&P completed within last 30 days, I have examined patient prior to procedure and No changes to prior documentation PREOP DIAGNOSIS: lumbar nonunion/ failed back syndrome PLANNED PROCEDURE: Operation Date: 12/09/20 07:00 Proposed Procedures p revision of L3- pelvis [id number], 98318, 17822, 17400, 02097, 23130, 57303 36152 M96.1(Not Applicable) - Kumar Tobin DO
--- NOTE | 2020-12-09 07:16 | P.ANESUD_ITS ---
Pre-Anesthetic Update Pre-Anesthetic Assessment: Date of Surgery/Procedure: 12/09/20 Preop Venecia gnosis: lumbar nonunion/ failed back syndrome Proposed Procedure: Operation Date: 12/09/20 07:00 Proposed Procedures p revision of L3- pelvis [id number] 08473, 75091, 44694, 39213, 98231, 52759 02480 M96.1(Not Applicable) - Kumar Tobin, DO Any changes to Pre-Anesthetic Assessment?: No Last Intake: Intake Last Liquid Date 12/08/20 Last Liquid Time 18:00 Last Solid Date 12/08/20 Last Solid Time 20:00 Vitals: Temperature 96.9 F L 12/09/20 06:31 Temperature Source Temporal Artery S can 12/09/20 06:31 Pulse Rate 79 12/09/20 06:31 Pulse Rhythm 12/09/20 06:15 Pulse Strength 3+ Normal 12/09/20 06:15 Respiratory Rate 18 12/09/20 06:31 Blood Pressure 168/96 12/09/20 06:31 Blood Pressure Katt n 120 12/09/20 06:31 Pulse Oximetry 93 12/09/20 06:31 Oxygen Delivery Me thod 12/09/20 06:15 Exam: Pre-Anes Outpt Exam: alert, oriented x 3, clear to auscultation bilaterally and regular rate & rhythm Cardiac Studies: No Data to Display
[2020-12-09] MEDS: clindamycin 600 MG/50 ML PREMIX 100 MG IV (07:20)
[2020-12-09] MEDS: sodium chloride 0.9% 1,000 ML 30 ML IV (07:26)
[2020-12-09] MEDS: heparin, porcine 1,000 unit/mL INJ 10 mL 10000 UNIT XX (08:40)
--- NOTE | 2020-12-09 08:45 | SUR.OPER ---
Called and updated family on surgical progress.
[2020-12-09 11:08] LABS: Basophils % 0.3 %; Eosinophils # 0.1 10^3/uL (0.0-0.8); Eosinophils % 0.8 %; Hematocrit 46.8 % (42.0-52.0); Hemoglobin 14.7 g/dL (11.7-16.6); Lymphocytes # 1.8 10^3/uL (0.8-4.8); Lymphocytes % 14.4 %; Mean Corpuscular HGB Conc 31.4 g/dL (30.0-36.0); Mean Corpuscular Hemoglobin 29.5 pg (28.0-34.0); Mean Corpuscular Volume 93.8 fL (80-94); Mean Platelet Volume 9.8 fL (7.4-10.4); Monocytes # 0.4 10^3/uL (0.2-0.9); Monocytes % 3.4 %; Neutrophils # 9.77 10^3/uL (1.8-7.7); Neutrophils % 80.6 %; Nucleated Red Blood Cells % 0 %; Platelet Count 277 10^3/cmm (130-400); Red Blood Count 4.99 10^6/uL (4.1-5.3); Red Cell Distribution Width 13.2 % (12.1-15.1); White Blood Count 12.1 10^3/uL (4.0-10.0)
[2020-12-09] MEDS: vancomycin 1,000 MG SDV 2000 MG (12:29)
[2020-12-09] MEDS: HYDROmorphone 1 mg/mL INJ 1 mL 0.5 MG IVP ×4 (14:34→15:20)
--- NOTE | 2020-12-09 14:46 | PM.OP ---
Operative Report Date of procedure: December 09, 2020 Pre-op Diagnosis: lumbar nonunion/ failed back syndrome Post-op diagnosis: same Procedure Done: 1. L5/S1 Interbody fusion with posterolateral fusion 2. Instrumentation L3-Pelvis 3. Cage at L5/S1 4. Revision Laminectomy L5 for decompression of S1 nerve 5. use of autograft from same incision 6. allograft 7. Bone marrow aspirate from pedicle 8. Fusion from L3 to pelvis Surgeon: Kumar Tobin Anesthesia: General Estimated blood loss (mL): 1,500 Condition: stable Disposition: PACU Procedure: 1. L5/S1 Interbody fusion with posterolateral fusion 2. Instrumentation L3-Pelvis 3. Cage at L5/S1 4. Revision Laminectomy L5 for decompression of S1 nerve 5. use of autograft from same incision 6. allograft 7. Bone marrow aspirate from pedicle 8. Fusion from L3 to pelvis Patient is brought to the room. Patient is hooked up to neuro monitoring. Patient was then flipped in the prone position. All areas patient well-padded. Patient was then prepped and draped in normal sterile fashion. Skin was made over the previous incision. Incisions made down to the thoracolumbar fascia there was significant scarring the dissection was brought down to the rods from L3 down to the pelvis. Once the hardware was identified the screws were removed. And the new screws were placed. Attention was brought to replacing the iliac bolt however one of the screws sheared off the head. But was left in place. Once the iliac screws were placed. That is brought to the S1 screws and then the L5 screws placed bilaterally after revising the previous months then attention was brought to performing the interbody fusion. The facetectomy was performed on the right side this was done performing a revision laminectomy. And then taking down the facet joint. The L5 nerve was traced around out the L5-S1 foramen. The S1 nerve root was traced around the S1 pedicle and felt to be completely decompressed. The nerve retractor was placed. And then gagan were used up to 9. Region of cell bone marrow aspirate was taken from the pedicle. This was mixed with the bone graft was packed into the cage. An [employer] sponges were packed into the anterior cage cage and disc space. Then the 9 titanium cage from [employer] was impacted into the disc base. And then rods were attached from the iliac screws to L4 on the right side. 2 connectors attached onto the previous connor connecting to the connor on the right. And then this process repeated on the left side however went above to the L3 pedicle screw. There are total of 4 connectors. Bone was decorticated and autograft and the osteoamp fibers and sponges were packed in the gutters. Deep drain was placed. Vancomycin powder was placed. And the thoracolumbar fascia was closed with strata fix subcu layer was closed strata fix and the skin was closed with nylon suture. Sterile dressings were applied patient is transferred to the PACU in stable condition.
[2020-12-09] MEDS: ipratropium-albuterol 3 mL Neb INHALATION (15:17)
--- NOTE | 2020-12-09 15:34 | ANE.PACU2 ---
Inpatient post-anesthesia follow up: Airway intact: Yes Vital signs: Temperature 97.7 F Pulse Rate 111 Respiratory Rate 22 Blood Pressure 123/71 Pulse Oximetry 88 Oxygen Delivery Me thod Nasal Cannula Oxygen Flow Rate 3 Fraction of Inspir ed Oxygen Hydration adequate: Yes Nausea and vomiting: No Pain level: 5 Mental status: Baseline
[2020-12-09 15:45] LABS: Hematocrit 48.8 % (42.0-52.0); Hemoglobin 15.2 g/dL (11.7-16.6)
--- NOTE | 2020-12-09 16:08 | P.CONIM_ITS ---
Providers/Reason For Consult Consulting Physican/Specialty*: Melisa West MD /Hospitalist Reason for Consult*: management of medical comorbidities Attending Physician: Kumar Tobin DO Primary Care Provider: Arsen Hernandez History of Present Illness History of Present Illness Jesse Carbajal is a 50 year old male with reported history of [place], CVA ,HTN, sleep apnea, nephrolithiasis, obesity, chronic pain 2/2 DJD , s/p laminectomy with spinal fusion admitted today and underwent spinal fusion , hardware placement, revision laminectomy at levels L3-S1. EBL 1500cc. Rpt Hb stable at ~14. Tolerated procedure well, transferred to med/surg floor thereafter. Hospitalist service consulted to assist with medical management. Currently rates pain at 5/10, no other compaints. 02 sat on RA noted to be between 88-90%, patient is a chronic smoker, had PFTs 2 years ago, unaware if he was diagnosed with COPD, uses albuterol inhaler prn. No known h/o heart failure. Has chronic LE edema, attributes to varicose veins, states currently edema is the best it's ever been . Denies any c/o chest pain, dyspnea or palpitations Review of Systems General: Reports: 10 or more systems reviewed and unremarkable except in HPI and below Const: Denies: fever(s), chills or body aches Eyes: Denies: change in vision, blurry vision or photophobia ENMT: Reports: hoarseness; Denies: throat pain, enlarged tonsils, odynophagia or nasal congestion Card: Denies: chest pain, palpitations, irregular heart rhythm, edema, swelling of feet/ankles, lightheadedness, pre-syncope, dyspnea on exertion or orthopnea Resp: Denies: dyspnea, productive cough, non-productive cough, wheezing, stridor, pain on inspiration, change in phlegm color, hemoptysis or chest congestion GI: Denies: abdominal pain, nausea, vomiting, hematemesis, coffee ground emesi s, dysphagia, heartburn, diarrhea, constipation, GI cramping, change in stool character, hematochezia or melena : Denies: flank pain, dysuria, urinary frequency, urinary urgency, urinary hesitancy or hematuria Musc: Denies: neck pain, back pain, extremity pain, joint swelling, joint warm th or deformity Neuro: Denies: headache(s), numbness in extremities, weakness in extremities, sensory changes, difficulty walking, frequent falls, dizziness, vertigo, behavioral changes, Slurred speech present or seizure-like activity Psych: Denies: anxiety, depression, suicidal ideation or homicidal ideation Endo: Denies: polyuria, polydipsia, tired all the time, cold intolerance or hot flashes Laz/Lymph: Denies: easy bruising or easy bleeding Meds/Allergies Home Medications and Allergies Home Medications Medication Instructions Recorded Confirmed Last Taken Type clopidogrel 75 mg tablet 75 mg PO DAILY 12/17/19 12/09/20 12/03/20 History lisinopril 20 mg tablet 20 mg PO DAILY 08/28/20 12/09/20 12/06/20 History back brace #1 ea 09/01/20 11/10/20 Unknown Rx Custome orthodic back brace #1 ea 09/02/20 11/10/20 Unknown Rx docusate sodium [Colace] 100 mg PO BID #30 cap 09/07/20 12/09/20 1 Month Ago Rx ~11/08/20 tizanidine 4 mg tablet 4 mg PO BID PRN #60 tab 10/15/20 12/09/20 12/08/20 Rx aspirin 81 mg tablet,delayed 81 mg PO DAILY 11/10/20 12/09/20 12/06/20 History release trazodone 150 mg tablet 150 mg PO DAILY 11/10/20 12/09/20 12/08/20 History Bone Growth Stimulator [id number] #1 ea 12/08/20 Unknown Rx bariatric lift chair #1 ea 12/08/20 Unknown Rx Allergies Allergy/AdvReac Type Severity Reaction Status Date / Time Bleach (Sodium Hypochlorite) Allergy ALGY-Anaphy Verified 11/10/20 10:34 laxis Penicillins Allergy ALGY-Anaphy Verified 11/10/20 10:34 laxis PFSH Acute PFSH: Medical History CAD (coronary artery disease) Cervical disc disorder with myelopathy of mid-cervical region CVA (cerebral vascular accident) Renal stones Status post laminectomy with spinal fusion Surgical History History of back surgery 06/2015 [place], [place]. Lumbar fusion/fixation. multilevel pedicle screw fixation T10 and S1 with bilateral iliac screws. Interbody fusion L4-L5. 06/2009 [place], [place] Lumbar fusion/fixation Status post laparoscopic cholecystectomy (09/07/20) Family History Mother Cancer Hypertension Father Cancer Hypertension Stroke Grandmother Cancer Grandfather Cancer Denies family history of Anesthesia complication Bleeding disorder Social History Smoking and tobacco status: current every day smoker cigarettes Packs smoked per day: 1 Alcohol intake: never Lives independently: Yes Household members: none Marital status: Current occupational status: disabled History of recent travel: No Vitals/I&O/Wt Last Vital Signs Temp 97.7 F 12/09/20 14:26 Pulse 111 H 12/09/20 15:25 Resp 22 H 12/09/20 15:25 BP 123/71 12/09/20 15:25 Pulse Ox 88 L 12/09/20 15:25 12/09/20 12/09/20 12/09/20 06:59 14:59 22:59 Intake Total 750 / 750 Output Total 1700 / 1700 Balance -950 / -950 Physical Exam Narrative: EXAM NARRATIVE: GEN: Awake, alert and oriented, no acute distress CVS: S1S2 N RS: CTA B/L Abd: Soft, nt/nd , bs+ 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: no focal neuro deficits EXT: Pitting B/L edema over both feet, chronic per patient, superficial varicose veins+ Urinary Catheter Management^: Cuellar: Cath Placed During This Visit: yes, but has since been removed by the nurse Urinary Catheter Date of Insertion: 12/09/20 Urinary Catheter Time of Insertion: 07:30 Date Urinary Catheter Removed: 12/09/20 Time Urinary Catheter Discontinued: 14:00 A&P Assessment and plan (1) CAD (coronary artery disease): Past h/o CAD No current active complaints of chest pain Continue ASA 81mg, plavix to be resumed when feasible from surgical perspective Status: Acute (2) Status post laminectomy with spinal fusion: POD #0 Post op management, wound care per ortho hydrocodone, toradol for pain management Status: Chronic (3) Sleep apnea: Has a diagnosis of sleep apnea, recommended to wear CPAP at home, however does not wear it due to claustrophobia. Declines CPAP here, only wishes to wear 02. States that with all his previous surgeries his 02 sat noted to be late 80s. 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
--- NOTE | 2020-12-09 16:18 | ECG_ITS ---
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 Measurements Intervals [place] Rate: 110 P: 31 CO: 145 QRS: 45 QRSD: 102 T: 19 QT: 334 QTc: 453 Interpretive Statements SINUS TACHYCARDIA POSSIBLE LEFT ATRIAL ENLARGEMENT [-0.1mV P WAVE IN V1/V2] MINIMAL ST DEPRESSION [0.025+ mV ST DEPRESSION] ABNORMAL RHYTHM ECG WARNING: DATA QUALITY MAY AFFECT INTERPRETATION Compared to ECG 05/11/2020 22:28:12 ST (T wave) deviation now present Sinus rhythm no longer present Electronically Signed On 12-09-2020 19:38:13 NETWORK OPERATIONS LEAD by Kenyatta Mitchell M.D. [email or web address] [email or web address] memorial hospitalTapas Mediasuburban [facility].[employer] 24/store/OM/[id number]
--- NOTE | 2020-12-09 16:18 | XR_ITS ---
WS: [id number] Portable AP upright chest, 12/09/2020 Clinical Data: hypoxia Comparison: Portable chest, 05/11/2020. Findings: No nodules, masses or effusions are seen. The heart is normal. The pulmonary vascularity is not increased. No pneumonia or pneumothorax is seen. There is linear atelectasis in the right midlun g. The patient has had a posterior fusion of the lower thoracic spine. XR/XR chest 1V portable [id number] Impression: Negative chest.
[2020-12-09] MEDS: HYDROcodone-acetaminophen 5-325 mg Tablet PO ×2 (16:43→23:59)
[2020-12-09] MEDS: docusate sodium 100 mg Capsule PO (16:43)
[2020-12-09] MEDS: clindamycin 900 MG/50 ML PREMIX 100 MG IV ×2 (16:44→23:59)
[2020-12-09] MEDS: ondansetron 2 mg/ML SDV 2 mL 4 MG IVP ×2 (18:04→23:58)
[2020-12-09] MEDS: ketorolac 30 mg/mL INJ IVP (18:24)
--- NOTE | 2020-12-09 18:32 | PC.NURSE ---
SHIFT SUMMARY PATIENT HAS BEEN IN QUITE A BIT OF PAIN SINCE ARRIVING TO THE FLOOR. THIS NURSE HAS ADMINISTERED PAIN MEDICATION TWICE. PATIENT STOOD UP WITH PHYSICAL THERAPY. THIS NURSE HAS EMPTIED 300 OF DRAINAGE FROM HEMOVAC. PATIENT'S RIGHT ARM IS VERY WEAK. PATIENT IS UNABLE TO LAUNDRY ASSISTANT THIS NURSE'S HAND. PATIENT IS ABLE TO MOVE RIGHT ARM BUT DOESN'T HAVE GOOD CONTROL OVER IT. DR. YOUNG NOTIFIED. DR. YOUNG STATED HE THINKS IT'S THE POSITION PATIENT WAS IN FOR SURGERY. DR. YOUNG STATED HE WOULD ROUND ON PATIENT IN THE AM. PATIENT CURRENTLY RESTING IN BED.
[2020-12-10] VITALS (11 sets, daily range): BP systolic 93–128; BP diastolic 59–85; PULSE 74–109; RESP 16–20; TEMP 36.5–36.7; O2SAT 90–93
[2020-12-10] MEDS: ketorolac 30 mg/mL INJ IVP (00:40)
[2020-12-10] MEDS: morphine 4 mg/mL SDV 1 mL 2 MG IVP (01:39)
[2020-12-10] MEDS: trazodone 150 mg Tablet PO ×2 (01:44→22:19)
[2020-12-10] MEDS: tizanidine 4 mg Tablet PO ×2 (01:44→17:03)
[2020-12-10 02:34] LABS: Basophils % 0.1 %; Hematocrit 49.7 % (42.0-52.0); Hemoglobin 15.7 g/dL (11.7-16.6); Lymphocytes # 1.5 10^3/uL (0.8-4.8); Lymphocytes % 6.9 %; Mean Corpuscular HGB Conc 31.6 g/dL (30.0-36.0); Mean Corpuscular Volume 94.8 fL (80-94); Mean Platelet Volume 9.7 fL (7.4-10.4); Monocytes # 1.8 10^3/uL (0.2-0.9); Monocytes % 8.2 %; Neutrophils # 17.92 10^3/uL (1.8-7.7); Neutrophils % 84.4 %; Nucleated Red Blood Cells % 0 %; Platelet Count 269 10^3/cmm (130-400); Red Blood Count 5.24 10^6/uL (4.1-5.3); Red Cell Distribution Width 13.3 % (12.1-15.1); White Blood Count 21.2 10^3/uL (4.0-10.0)
[2020-12-10 02:51] LABS: Alanine Aminotransferase 146 U/L (0-41); Albumin Level 3.4 g/dL (3.5-5.2); Alkaline Phosphatase 71 IU/L (40-130); Aspartate Amino Transferase 369 U/L (0-40); Blood Urea Nitrogen 28 mg/dL (6-20); Carbon Dioxide 26 mmol/L (22-29); Chloride 99 mmol/L (98-107); Globulin 2.8 g/dL (1.3-4.6); Glomerular Filtration Rate 26.3 mL/min (90-130); Glucose 137 mg/dL (65-115); Osmolality Calculated 292 mOsm/kg (285-295); Sodium 137 mmol/L (136-145); Total Bilirubin 0.4 mg/dL (0.15-1.2); Total Protein 6.2 g/dL (6.6-8.7)
[2020-12-10 02:55] LABS: Anion Gap 17.2 (5-19); Potassium 5.2 mmol/L (3.5-5.1)
[2020-12-10] MEDS: alum-mag-hydroxide-sime 30 mL UDC PO ×2 (04:28→13:43)
[2020-12-10] MEDS: clindamycin 900 MG/50 ML PREMIX 100 MG IV (07:13)
--- NOTE | 2020-12-10 08:02 | P.PN_ITS ---
Subjective Subjective: Interval history: Patient sitting up at bedside. Complaining of pain. Patient stated that the drain had been changed couple times. He has been up with physical therapy. Walked to the bathroom. Vitals/I&O/Wt Last Vital Signs Temp 98.0 F 12/10/20 07:27 Pulse 93 12/10/20 07:31 Resp 17 12/10/20 07:31 BP 114/74 12/10/20 07:27 Pulse Ox 90 12/10/20 07:31 12/09/20 12/10/20 12/10/20 22:59 06:59 14:59 Intake Total 200 / 950 50 / 1000 Output Total 700 / 2400 625 / 3025 175 / 175 Balance -500 / -1450 -575 / -2025 -175 / -175 Physical Exam Narrative: EXAM NARRATIVE: Patient's wound is dry. The drain has minimal output out of it however patient state has been changed a couple times. Urinary Catheter Management^: Cuellar: Cath Placed During This Visit: yes, but has since been removed by the nurse Urinary Catheter Date of Insertion: 12/09/20 Urinary Catheter Time of Insertion: 07:30 Date Urinary Catheter Removed: 12/09/20 Time Urinary Catheter Discontinued: 14:00 Data : 12/10/20 01:59 12/10/20 01:59 A&P Additional A&P Information Patient is postop day #1 from his revision spine surgery. Plan is to increase his pain meds switching him to oxycodone. Get him up with physical therapy. Will likely DC the drain tomorrow and hopefully work on discharging him home tomorrow. 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
[2020-12-10] MEDS: clopidogrel 75 mg Tablet PO (09:30)
[2020-12-10] MEDS: lisinopril 20 mg Tablet PO (09:30)
[2020-12-10] MEDS: docusate sodium 100 mg Capsule PO (09:30)
[2020-12-10] MEDS: aspirin 81 mg EC Tablet PO (09:30)
[2020-12-10] MEDS: oxyCODONE-APAP 10-325 mg Tablet PO ×2 (09:30→22:19)
--- NOTE | 2020-12-10 12:08 | PC.NURSE ---
Refused lunch due to puking.
--- NOTE | 2020-12-10 13:12 | ECG_ITS ---
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 Measurements Intervals [place] Rate: 73 P: 28 [place]: 154 QRS: 53 QRSD: 95 T: 134 QT: 379 QTc: 419 Interpretive Statements SINUS RHYTHM NONSPECIFIC T-WAVE ABNORMALITY Compared to ECG 12/09/2020 17:06:22 T-wave abnormality now present Sinus tachycardia no longer present ST (T wave) deviation no longer present Electronically Signed On 12-10-2020 16:00:28 SUPERVISOR FACEPIECE LINE by Brian Hogue M.D. [id number]
[2020-12-10] MEDS: metoclopramide 5 mg/mL SDV 2 mL 10 MG IVP (14:11)
[2020-12-10] MEDS: sodium chloride 0.9% 500 ML 999 ML IV ×2 (14:12→15:55)
[2020-12-10 14:25] LABS: Hematocrit 44.8 % (42.0-52.0); Hemoglobin 14.7 g/dL (11.7-16.6)
[2020-12-10 14:29] LABS: Troponin(5th) Baseline 71 ng/L (0-15)
[2020-12-10] MEDS: famotidine 20 mg/2 mL INJ IVP (14:35)
[2020-12-10] MEDS: ciprofloxacin 200 MG/100 ML PREMIX 100 MG IV (14:41)
[2020-12-10 15:07] LABS: Hepatitis A Antibody IgM Non-Reactive (Nonreactive); Hepatitis B Core AB, Total Non-Reactive (Nonreactive); Hepatitis B Surface AB 3.5 (0-8.5); Hepatitis B Surface Antigen Non-Reactive (Nonreactive); Hepatitis C Virus Antibody Non-Reactive (Nonreactive)
--- NOTE | 2020-12-10 15:12 | ECG_ITS ---
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 Measurements Intervals [place] Rate: 77 P: 32 DE: 150 QRS: 50 QRSD: 89 T: 85 QT: 377 QTc: 428 Interpretive Statements SINUS RHYTHM NONSPECIFIC T-WAVE ABNORMALITY Compared to ECG 12/10/2020 14:11:20 No significant changes Electronically Signed On 12-10-2020 16:08:33 SHEAR ASSEMBLER by Brian Hogue M.D. [email or web address] hospital of huntington [id number]
--- NOTE | 2020-12-10 15:23 | P.PN_ITS ---
Subjective Subjective: Interval history: complains of vague abdominal discomofort, nausea and vomiting this morning. NOted to have multiple lab abnormalities this am including leukocytosis to 21, ANITHA with cr to 2.6, transaminitis. BP this afternoon at 80 systolic, with 500 cc bolus returned at 90 systolic. Overnight lowest BP charted at 93 systolic. h&H stable at hb 15. Drain output with 150 cc x 2 bloody discharge. Denies any current chest pain, dysp[emmy, palpitations. CXR yesterday without consolidation, no fever Medications: Reviewed: Yes Vitals/I&O/Wt Last Vital Signs Temp 98.0 F 12/10/20 12:00 Pulse 93 12/10/20 12:00 Resp 20 H 12/10/20 12:00 BP 114/74 12/10/20 07:27 Pulse Ox 90 12/10/20 12:00 12/10/20 12/10/20 12/10/20 06:59 14:59 22:59 Intake Total 50 / 1000 910 / 910 Output Total 625 / 3025 300 / 300 Balance -575 / -2025 610 / 610 Physical Exam Narrative: EXAM NARRATIVE: GEN: Awake, alert and oriented, no acute distress CVS: S1S2 N RS: CTA B/L all areas Abd: Soft, nt/nd , bs+ DAIRY QUALITY ASSURANCE OFFICER: no focal neuro deficits Urinary Catheter Management^: Cuellar: Cath Placed During This Visit: yes, but has since been removed by the nurse Urinary Catheter Date of Insertion: 12/09/20 Urinary Catheter Time of Insertion: 07:30 Date Urinary Catheter Removed: 12/09/20 Time Urinary Catheter Discontinued: 14:00 Data : 12/10/20 13:35 12/10/20 01:59 Micro: Microbiology 12/10/20 13:35 Blood Culture - Preliminary Blood SPECIMEN COLLECTED A&P Assessment and plan (1) Leukocytosis: MAy be related to stress reaction post surgical intervention, however given interim development of hypotension, ANITHA and transaminitis, need to exclude sepsis check blood culture , UA, urine cx CXR on 12/09 without any consolidation or atelactasis relatively early for surgical site infection, lower on the differential check Procal Afberile currently Start Ciprofloxacin renally dosed while undergoing sepsis w/up. Unable to tell me nature of allergy to PCN or cephalosporins Status: Acute (2) ANITHA (acute kidney injury): May be related to hypoperfusion from blood loss (~1500 cc estimated perioperatively), hypotension NS fluid bolus 1000cc now maintainence fluid @ 75 cc/hr GI losses may be contributing to hypovolemia given excessive vomiting Check urine lytes, UA Monitor strict i/o Bladder scan to evalute for urinary retention US renal to evalute for obstructive uropathy last EF from Lexiscan 04/2020 at 81%, check limited echo to estimate EF Stop Lisinopril and toradol Status: Acute (3) Transaminitis: likely from hypoperfusion, ischemic hepatitis check acute hepatitis screen US liver Status: Acute (4) CAD (coronary artery disease): Past h/o CAD Check serial cardiac enzymes and EKG series to exclude ACS as cause of hypotension, vague abdominal discomfort and vomiting. Last stress test from 04/2020 Small area of fixed perfusion defect noted in basal to mid anterior and basal to mid inferior wall suggestive of old myocardial infarction versus scarring. Continue ASA 81mg, hold Plavix for now given hypotension, ongoing bleeding Status: Acute (5) Status post laminectomy with spinal fusion: POD #0 Post op management, wound care per ortho hydrocodone, toradol for pain management Status: Chronic (6) Sleep apnea: Has a diagnosis of sleep apnea, recommended to wear CPAP at home, however does not wear it due to claustrophobia. Declines CPAP here, only wishes to wear 02. States that with all his previous surgeries his 02 sat noted to be late 80s. Status: Acute (7) Nicotine dependence: declines nicotine patch ? h/o COPD, add duoneb q4h prn Status: Acute (8) Hypertension: Stop lisinopril given hypotension and ANITHA IF hypertensive, will use Amlodipdine Status: Acute Attestations Medical Necessity Statement*: needs ongoling admission for evaluation and management of ANITHA, transaminitis, evaluation for possible sepsis Coding Level of Care Code Acute Grain Distributor for Chg Fwd Diagnoses Leukocytosis D72.829 ANITHA (acute kidney injury) N17.9 Transaminitis R74.01 CAD (coronary artery disease) I25.10 Status post laminectomy with spinal fusion Z98.1 Sleep apnea G47.30 Nicotine dependence F17.200 Hypertension I10
[2020-12-10 16:31] LABS: Troponin 5 2HR 64.69 ng/L (0-15)
[2020-12-10 16:33] LABS: Troponin 5 2HR Delta -6.31 ABS# (0-10)
[2020-12-10 16:48] LABS: Alanine Aminotransferase 157 U/L (0-41); Albumin Level 3.1 g/dL (3.5-5.2); Alkaline Phosphatase 61 IU/L (40-130); Blood Urea Nitrogen 42 mg/dL (6-20); Calcium 8.3 mg/dL (8.5-10.5); Carbon Dioxide 23 mmol/L (22-29); Chloride 95 mmol/L (98-107); Globulin 2.5 g/dL (1.3-4.6); Glucose 128 mg/dL (65-115); Osmolality Calculated 288 mOsm/kg (285-295); Sodium 133 mmol/L (136-145); Total Bilirubin 0.4 mg/dL (0.15-1.2); Total Protein 5.6 g/dL (6.6-8.7)
[2020-12-10 16:57] LABS: Anion Gap 20.2 (5-19); Aspartate Amino Transferase 379 U/L (0-40); Potassium 5.2 mmol/L (3.5-5.1)
[2020-12-10 17:11] LABS: Add Urine Microscopic? YES; Bilirubin Urine 1+ (Negative); Blood Urine 3+ (Negative); Glucose Urine UA Norm (Normal); Ketones Urine 1+ (Negative); Leukocyte Esterase Urine Trace (Negative); Nitrate Urine Negative (Negative); Protein Urine 1+ (Negative); Specific Gravity, Urine 1.025 (1.005-1.030); Urine Appearance Cloudy (CLEAR); Urine Color Dark Yellow (Yellow); Urobilinogen Urine 1 mg/dL (Negative); pH Urine 5 (5-7)
[2020-12-10 17:14] LABS: Add Urine Culture? Yes; Bacteria Urine 2+ /hpf; Coarse Granular Casts Urine 0-4 /lpf; Squamous Epithelial Cell Urine 0-4 /hpf (0-5)
[2020-12-10 17:17] LABS: Potassium, Radom Urine 73 mmol/L
[2020-12-10 17:18] LABS: Urine Random Sodium 14 mmol/L
[2020-12-10 17:24] LABS: Urine Random Chloride > 10 mmol/L
[2020-12-10] MEDS: sodium chloride 0.9% 1,000 ML 75 ML IV (17:52)
--- NOTE | 2020-12-10 19:12 | ECG_ITS ---
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 Measurements Intervals [place] Rate: 89 P: 33 ND: 145 QRS: 34 QRSD: 105 T: 32 QT: 362 QTc: 442 Interpretive Statements SINUS RHYTHM NONSPECIFIC T-WAVE ABNORMALITY Compared to ECG 12/10/2020 16:05:53 No significant changes Electronically Signed On 12-12-2020 19:28:56 INFECTION PREVENTION COORDINATOR by Guicho Mckenzie M.D. [id number]
[2020-12-11] VITALS (11 sets, daily range): BP systolic 88–135; BP diastolic 46–74; PULSE 73–87; RESP 16–20; TEMP 36.5–36.9; O2SAT 91–95
[2020-12-11] MEDS: famotidine 20 mg/2 mL INJ IVP ×2 (02:20→16:19)
[2020-12-11] MEDS: tizanidine 4 mg Tablet PO ×2 (02:20→23:30)
[2020-12-11] MEDS: ciprofloxacin 200 MG/100 ML PREMIX 100 MG IV ×2 (02:21→16:18)
--- NOTE | 2020-12-11 06:00 | USCV_ITS ---
Jesse Carbajal Age: 50 Gender: M : 1970 Exam Date: 12/11/2020 10:31 Ordering Phys: Melisa West MD Technologist: Gladis Kirkland Exam Location: [facility]_ Indication: EVAL EF BP: 97 / 52 HR: 73 Rhythm: Sinus Technical Quality: Adequate MEASUREMENTS (Male / Female) Normal Values 2D ECHO LV Diastolic Diameter PLAX 2.7 cm 4.2 - 5.9 / 3.9 - 5.3 cm LV Systolic Diameter PLAX 2.3 cm LV Chamber Size 3.8 cm IVS Diastolic Thickness 2.1 cm 0.6 - 1.0 / 0.6 - 0.9 cm IVS Systolic Thickness 2.0 cm LVPW Diastolic Thickness 2.0 cm 0.6 - 1.0 / 0.6 - 0.9 cm LVPW Systolic Thickness 2.9 cm RV Chamber Size 2.8 cm LVOT Diameter 2.1 cm LV Ejection Fraction 2D Teich 36.6 % LV Ejection Fraction MOD 2C 58.4 % LV Ejection Fraction 2C AL 57.4 % LA Diameter 3.5 cm LA Width 4.4 cm LA Height 5.2 cm RA Width 2.8 cm RA Height 3.8 cm Aorta at Sinotubular Diameter 3.0 cm FINDINGS Left Ventricle Normal left ventricular size and systolic function, EF 58% . No regional wall motion abnormalities. Right Ventricle Possibly normal LV size ejection fraction. Right Atrium Possibly of normal size Left Atrium Possibly of normal size Mitral Valve Mild mitral annular calcification. Aortic Valve Aortic valve morphology could not be delineated well. No gross abnormalities noted Tricuspid Valve Tricuspid valve not well visualized. Pulmonic Valve Pulmonic valve not well visualized. Pericardium Normal pericardium without effusion. Aorta Normal ascending aorta dimension. CONCLUSIONS Normal left ventricular size and systolic function, EF 58% . No regional wall motion abnormalities. Possibly normal chamber sizes. No gross valvular abnormalities were noted. There is no pericardial effusion. Technically difficult study because of the poor ultrasonic window. Dr Guicho Mckenzie MD FAC (Electronically Signed) Final Date: 11 December 2020 14:02 S
--- NOTE | 2020-12-11 06:31 | PC.NURSE ---
Patient mainly slept, had an uneventful night. Patient had soft BP throughout the night. Patient's pain is well controlled by oxycodone.
[2020-12-11] MEDS: sodium chloride 0.9% 1,000 ML 75 ML IV ×2 (07:56→23:32)
[2020-12-11] MEDS: aspirin 81 mg EC Tablet PO (08:01)
[2020-12-11 09:54] LABS: Basophils # 0.1 10^3/uL (0.0-0.1); Basophils % 0.5 %; Eosinophils # 0.1 10^3/uL (0.0-0.8); Eosinophils % 0.5 %; Hemoglobin 11.8 g/dL (11.7-16.6); Lymphocytes # 1.6 10^3/uL (0.8-4.8); Lymphocytes % 12.5 %; Mean Corpuscular HGB Conc 32.8 g/dL (30.0-36.0); Mean Corpuscular Hemoglobin 30.3 pg (28.0-34.0); Mean Corpuscular Volume 92.3 fL (80-94); Mean Platelet Volume 10.5 fL (7.4-10.4); Monocytes % 7.8 %; Neutrophils # 9.98 10^3/uL (1.8-7.7); Neutrophils % 78.4 %; Nucleated Red Blood Cells % 0 %; Platelet Count 185 10^3/cmm (130-400); Red Cell Distribution Width 13.3 % (12.1-15.1); White Blood Count 12.8 10^3/uL (4.0-10.0)
[2020-12-11 10:05] LABS: Alanine Aminotransferase 157 U/L (0-41); Albumin Level 2.7 g/dL (3.5-5.2); Alkaline Phosphatase 54 IU/L (40-130); Anion Gap 19.5 (5-19); Aspartate Amino Transferase 320 U/L (0-40); Blood Urea Nitrogen 55 mg/dL (6-20); Calcium 7.4 mg/dL (8.5-10.5); Carbon Dioxide 22 mmol/L (22-29); Chloride 96 mmol/L (98-107); Globulin 2.6 g/dL (1.3-4.6); Glomerular Filtration Rate 12.3 mL/min (90-130); Glucose 112 mg/dL (65-115); Osmolality Calculated 292 mOsm/kg (285-295); Potassium 4.5 mmol/L (3.5-5.1); Sodium 133 mmol/L (136-145); Total Bilirubin 0.3 mg/dL (0.15-1.2); Total Protein 5.3 g/dL (6.6-8.7)
--- NOTE | 2020-12-11 10:25 | P.DS_ITS ---
Discharge Providers Date of Admission: 12/09/20 14:14 Date of Discharge: December 11, 2020 Attending Provider at Admission: Kumar Tobin DO Attending Provider at Discharge: Kumar Tobin DO Primary Care Provider: Arsen Hernandez Diagnoses at Discharge Discharge Diagnosis (1) Leukocytosis: Status: Acute (2) ANITHA (acute kidney injury): Status: Acute (3) Transaminitis: Status: Acute (4) CAD (coronary artery disease): Status: Acute (5) Status post laminectomy with spinal fusion: Status: Chronic (6) Sleep apnea: Status: Acute (7) Nicotine dependence: Status: Acute (8) Hypertension: Status: Acute Reason for Visit Reason for Visit: revision of L3- pelvis [id number], Hospital Course Hospital Course Patient was admitted on 12/09/2020 he had a revision of his lumbar spine fusion. Patient underwent a 7-hour surgery which included revision of L3 to the pelvis. Screws and rods were exchanged. And a interbody fusion was performed at L5-S1. The S1 nerve root was decompressed. Postoperative patient is course had a one episode of hypotension which he received a 500 cc bolus for and improved. Those labs were slightly off. His pain was controlled with oxycodone. His left leg sciatica has completely resolved. Wound today looks clean dry and intact. Drain was pulled and patient will be discharged pending evaluation from the hospitalist. Physical Exam Narrative: EXAM NARRATIVE: Patient is left leg pain is complete resolved. Sensations intact strength 5-5 wound is clean dry and intact minimal output from the Hemovac drain. Urinary Catheter Management^: Cuellar: Cath Placed During This Visit: yes, but has since been removed by the nurse Urinary Catheter Date of Insertion: 12/09/20 Urinary Catheter Time of Insertion: 07:30 Date Urinary Catheter Removed: 12/09/20 Time Urinary Catheter Discontinued: 14:00 Discharge Data Data Completed and Pending: Completed Studies During Hospitalization Category Date Time Status XR chest 1V roberto ble [id number] Routine Exams 12/09/20 16:18 Completed XR lumbar spine 2 -3V* [id number] Routine Exams 12/09/20 Completed Pending at discharge Category Date Time Status Blood Culture Sta t Lab 12/10/20 15:53 Results Complete Blood Co unt w/Auto Stat Lab 12/11/20 09:15 Results Leukocyte Reduced RBC Stat Lab 12/09/20 10:17 Results Type and Screen S tat Lab 12/09/20 10:17 Results Urine Culture Rou myra Lab 12/10/20 15:52 Received CV echo limited 9 [id number] Routine Ultrasound 12/11/20 06:00 Ordered US abdomen comple te* [id number] Routine Ultrasound 12/11/20 13:13 Ordered Labs from last 24 hours 12/11/20 12/11/20 12/10/20 09:15 09:15 18:45 WBC Pending RBC Pending Hgb Pending Hct Pending MCV Pending MCH Pending MCHC Pending RDW Pending Plt Count Pending MPV Pending Lymph % (Auto) Pending Shoshone % (Auto) Pending Lymph # (Auto) Pending Shoshone # (Auto) Pending Sodium 133 L Potassium 4.5 Chloride 96 L Carbon Dioxide 22 Anion Gap 19.5 H BUN 55 H Creatinine 5.0 H GFR Calculation 12.3 L Glucose 112 Calculated Osmolal ity 292 Calcium 7.4 L Total Bilirubin 0.3 AST 320 H ALT 157 H Alkaline Phosphata se 54 Troponin T Baselin e Troponin T 120 Min [place] Delta Troponin T Troponin T Hi Sens 6Hr 63.40 H Troponin T Hi Sens 6Hr Delta -7.60 L Total Protein 5.3 L Albumin 2.7 L Globulin 2.6 Procalcitonin Urine Color Urine Appearance Urine pH Ur Specific Gravit y Urine Protein Urine Glucose (UA) Urine Ketones Urine Blood Urine Nitrate Urine Bilirubin Urine Urobilinogen Ur Leukocyte Rut ase Urine RBC Urine WBC Ur Squamous Epith Cells Amorphous Sediment Urine Bacteria Coarse Granular Ca sts Ur Random Sodium Ur Random Potassiu m Ur Random Chloride Hepatitis A IgM Ab Hep Bs Antigen Hep Bs Antibody Hep B Core Total A b Hepatitis C Antibo dy 12/10/20 12/10/20 12/10/20 15:53 15:53 15:52 WBC RBC Hgb Hct MCV MCH MCHC RDW Plt Count MPV Lymph % (Auto) Shoshone % (Auto) Lymph # (Auto) Shoshone # (Auto) Sodium 133 L Potassium 5.2 H Chloride 95 L Carbon Dioxide 23 Anion Gap 20.2 H BUN 42 H Creatinine 4.0 H GFR Calculation 16.0 L Glucose 128 H Calculated Osmolal ity 288 Calcium 8.3 L Total Bilirubin 0.4 AST 379 H ALT 157 H Alkaline Phosphata se 61 Troponin T Baselin e Troponin T 120 Min [place] 64.69 H Delta Troponin T -6.31 L Troponin T Hi Sens 6Hr Troponin T Hi Sens 6Hr Delta Total Protein 5.6 L Albumin 3.1 L Globulin 2.5 Procalcitonin 1.40 H Urine Color Urine Appearance Urine pH Ur Specific Gravit y Urine Protein Urine Glucose (UA) Urine Ketones Urine Blood Urine Nitrate Urine Bilirubin Urine Urobilinogen Ur Leukocyte Rut ase Urine RBC Urine WBC Ur Squamous Epith Cells Amorphous Sediment Urine Bacteria Coarse Granular Ca sts Ur Random Sodium 14 Ur Random Potassiu m 73 Ur Random Chloride > 10 Hepatitis A IgM Ab Hep Bs Antigen Hep Bs Antibody Hep B Core Total A b Hepatitis C Antibo dy 12/10/20 12/10/20 12/10/20 15:52 13:35 13:35 WBC RBC Hgb Hct MCV MCH MCHC RDW Plt Count MPV Lymph % (Auto) [place]osh[place] % (Auto) Lymph # (Auto) [place]oshone # (Auto) Sodium Potassium Chloride Carbon Dioxide Anion Gap BUN Creatinine GFR Calculation Glucose Calculated Osmolal ity Calcium Total Bilirubin AST ALT Alkaline Phosphata se Troponin T Baselin e 71 H Troponin T 120 Min [place] Delta Troponin T Troponin T Hi Sens 6Hr Troponin T Hi Sens 6Hr Delta Total Protein Albumin Globulin Procalcitonin Urine Color Dark yellow Urine Appearance Cloudy A Urine pH 5 Ur Specific Gravit y 1.025 Urine Protein 1+ H Urine Glucose (UA) Norm Urine Ketones 1+ H Urine Blood 3+ H Urine Nitrate Negative Urine Bilirubin 1+ H Urine Urobilinogen 1 H Ur Leukocyte Rut ase Trace H Urine RBC 5-10 H Urine WBC 10-15 H Ur Squamous Epith Cells 0-4 H Amorphous Sediment Not Reportable Urine Bacteria 2+ H Coarse Granular Ca sts 0-4 H Ur Random Sodium Ur Random Potassiu m Ur Random Chloride Hepatitis A IgM Ab Non-reactive Hep Bs Antigen Non-reactive Hep Bs Antibody 3.5 Hep B Core Total A b Non-reactive Hepatitis C Antibo dy Non-reactive 12/10/20 13:35 WBC RBC Hgb 14.7 Hct 44.8 MCV MCH MCHC RDW Plt Count MPV Lymph % (Auto) [place]osh[place] % (Auto) Lymph # (Auto) [place]oshone # (Auto) Sodium Potassium Chloride Carbon Dioxide Anion Gap BUN Creatinine GFR Calculation Glucose Calculated Osmolal ity Calcium Total Bilirubin AST ALT Alkaline Phosphata se Troponin T Baselin e Troponin T 120 Min [place] Delta Troponin T Troponin T Hi Sens 6Hr Troponin T Hi Sens 6Hr Delta Total Protein Albumin Globulin Procalcitonin Urine Color Urine Appearance Urine pH Ur Specific Gravit y Urine Protein Urine Glucose (UA) Urine Ketones Urine Blood Urine Nitrate Urine Bilirubin Urine Urobilinogen Ur Leukocyte Urt ase Urine RBC Urine WBC Ur Squamous Epith Cells Amorphous Sediment Urine Bacteria Coarse Granular Ca sts Ur Random Sodium Ur Random Potassiu m Ur Random Chloride Hepatitis A IgM Ab Hep Bs Antigen Hep Bs Antibody Hep B Core Total A b Hepatitis C Antibo dy Vitals: Last Vital Signs Temp 97.9 F 12/11/20 07:01 Pulse 87 12/11/20 09:31 Resp 17 12/11/20 09:31 BP 96/58 12/11/20 07:01 Pulse Ox 94 12/11/20 09:31 Discharge Plan Discharge Patient Disposition: Home Condition: Stable Prescriptions: New oxycodone-acetaminophen 10-325 mg tablet 1 tab PO Q4H PRN (Reason: pain) 7 Days Qty: 60 RF: 0 Continued clopidogrel [Plavix] 75 mg tablet 75 mg PO DAILY@06 RF: 0 Hold Instructions: Resume on 09/09/20. lisinopril 20 mg tablet 20 mg PO DAILY@06 RF: 0 tizanidine 4 mg tablet 4 mg PO BID PRN (Reason: muscle spasticity) Qty: 60 RF: 0 trazodone 150 mg tablet 150 mg PO DAILY@2100 RF: 0 aspirin [Adult Low Dose Aspirin] 81 mg tablet,delayed release (DR/EC) 81 mg PO DAILY@06 RF: 0 (DME) Custome orthodic back brace See Rx Instructions .Route .MEDSUPPLY Qty: 1 RF: 0 (DME) bariatric lift chair See Rx Instructions .Route .MEDSUPPLY Qty: 1 RF: 0 (DME) Bone Growth Stimulator [id number] See Rx Instructions .Route .MEDSUPPLY Qty: 1 RF: 0 docusate sodium [Colace] 100 mg capsule 100 mg PO BID Qty: 30 RF: 0 Discharge Orders: Discharge Order (Routine); Ordered 12/11/20 Ordered By: Kumar Tobin Other Ambulatory Orders: DME: Walker (Order) Location: None Selected Ordered By: Melisa West Referrals: [facility] Setup [Other] (If you are interested in getting In Home Services setup, Call this number, they will ask you questions, In order to qualify for the In Home Services. It is based off of a point system. ) Discharge Diet: Advance as tolerated and Usual diet Discharge Activity: Limit activity as instructed Activity Restrictions/Additional Instructions: Thank you for [facility] for your care! The following is a list of instructions, from your provider, to follow upon your discharge to ensure you have the optimal recovery from your recent injury orsurgery. Follow-up care is a sahni part of your treatment and safety. Be sure to make and go to all appointments, and call your doctor if you are having problems. If you do not already have a follow-up appointment made, call Dr. Tobin office in the next 1-3 days to make follow up appointment for 2 weeks at [phone]. It is also a good idea to know your test results and keep a list of the medicines you take. Medications will be prescribed for you at your provider's discretion. These medications are to be used as instructed; if they are taken more often that prescribed they will not be refilled early and in most cases will not be refilled at all. > When a refill is needed,you should contact adal mancilla 2-3 business days before your prescription runs out. Medications will NOT be refilled by machine long goods helper providers after hours! > Many pain medications contain Tylenol (Acetaminophen). Do not consume more than 4,000 mg of Tylenol per day in total with any combination ofmedications. > Pain medications can cause constipation. Please use an over the counter stool softener as directed, while taking pain medications. Consulty our local pharmacist with questions or recommendations on stool softeners. If constipation persists, contact our office or your primary care provider. > While under our care,you are not to receive pain medications or other controlled substances from any other provider unless our office is notified and approves. Any attempts to do so will result in refusal to prescribe any further pain medications and possible dismissal from our practice. ? Your wound and/or dressing should remain clean and dry for 2 days after surgery. On postoperative day 2 (48 hours after your surgery) the dressing (if present) should be removed and it is okay to shower and get the incision wet. Pad dry afterwards. No further dressing should be required from that point on. Do not put any creams or ointments on theincision > It is normal for there to be a small amount of discharge (bloody or blood tinged) present from a surgical wound for the first 1-3days. > The wound should be examined twice a day for signs of infection. Mild redness or bruising is to be expected but indications that an infection maybe starting would include; An increase in redness, swelling, or discharge, a foul odor present around the incision, and/or a fever greater than 101 ?F ? Showering is permitted, however we ask that you do not take a bath, sit in a whirlpool / Jacuzzi, or go swimming for 1 month. For only the first 2 days after surgery, lt wilt be necessary for you to cover your wound/dressing with plastic and tape to keep it dry. ? Walking is essential for the healing process after surgery. We would like you to slowly advance your walking. This should be done on relatively flat clear ground (inside or out) or can be done on a treadmill. Remember this goal does not have to happen all at once, slowly increase your distance and duration. This can be broken into more more than one walk per day as tolerated. Patients who walk as directed after surgery rarely require Physical Therapy. In the unlikely event this issue arises your provider will direct hospital staff to make the appropriate arrangements. ? No lifting over 5 pounds {a gallon of milk) or bending/twisting until further notice. Each of these activities places an unnecessary amount of stress onto the body and can impede the delicate healing process. > Instead of bending at the waist, keep your back straight and bend at the knees. > Instead of twisting your torso, keep your back straight and turn your entire body with your feet. ? You may sleep in any position which makes you comfortable. Many patients find comfort sleeping in a reclining chair. It is not abnormal to have difficulty sleeping for the first several weeks following your surgery. We recommend trying Benadry! or Tylenol PM as directed to help with your sleeping difficulties. Both medications are over the counter and available withoutprescription. ? NO SMOKING!!! Smoking dramatically increases the probability of developing postoperative wound infections. ? Common complaints after lumbar and/or thoracic spine surgery include, but are not limited to: numbness and/or tingling in the legs, pain around the incision and surrounding tissues, muscle spasms, or stiffness of the middle to low back. Contact our office if these symptoms persist or if an acute change occurs. ? No driving for the first 3-5days, and not while taking narcotics [] until seen at your follow-up appointment and cleared. There are no restrictions for riding on short trips, however if you take a longer trip, arrangements should be made to make regular stops to get out of the vehicle and stretch . ? Swelling is an unfortunate event that will take place with any surgery and is the primary source of your postoperative discomfort. While walking and regular approved activities helps control inflammation, there are additional steps you can take to minimizeswelling. > Place ice over the surgical site and surrounding tissue for twenty minutes, followed by applying a low/medium heat (heating pad) for an additional twenty minutes every 1-2 hours as needed for painrelief. > You may use of over the counter anti-inflammatory medications (Ibuprofen, Motrin, Aleve, Advil, etc) as directed on the package label. These types of medicines wm significantly reduce the amount of discomfort you experience after surgery from swelling. It should be noted that if you have and allergy to any of these medications, or a history of ulcers or kidney disease you should consult you primary care provider prior to starting these medications. Discharge Attestations Time Spent in Discharge Care*: less than 30 min Quality Metrics Clinical Quality Measures During this hospital stay, did patient experience: None Coding Level of Care Code Acute Bus Or Truck Garage Mechanic for Kenyg Robbid Diagnoses Leukocytosis D72.829 ANITHA (acute kidney injury) N17.9 Transaminitis R74.01 CAD (coronary artery disease) I25.10 Status post laminectomy with spinal fusion Z98.1 Sleep apnea G47.30 Nicotine dependence F17.200 Hypertension I10
[2020-12-11 10:31] LABS: Slide Review Slide Review Perform
--- NOTE | 2020-12-11 11:46 | PM.PN ---
Subjective Subjective: Interval history: patients Creatinine was elevated worse then yesterday. This will hold up patients D/C Vitals/I&O/Wt Last Vital Signs Temp 98.1 F 12/11/20 10:55 Pulse 73 12/11/20 10:55 Resp 20 H 12/11/20 10:55 BP 110/65 12/11/20 10:55 Pulse Ox 93 12/11/20 10:55 12/10/20 12/11/20 12/11/20 22:59 06:59 14:59 Intake Total 840 / 1750 100 / 1850 1480 / 1480 Output Total 850 / 1150 200 / 1350 300 / 300 Balance -10 / 600 -100 / 500 1180 / 1180 Physical Exam Urinary Catheter Management^: Cuellar: Cath Placed During This Visit: yes, but has since been removed by the nurse Urinary Catheter Date of Insertion: 12/09/20 Urinary Catheter Time of Insertion: 07:30 Date Urinary Catheter Removed: 12/09/20 Time Urinary Catheter Discontinued: 14:00 Data : 12/11/20 09:15 12/11/20 09:15 Micro: Microbiology 12/10/20 15:53 Blood Culture - Preliminary Blood SPECIMEN COLLECTED 12/10/20 13:35 Blood Culture - Preliminary Blood SPECIMEN COLLECTED Attestations Medical Necessity Statement*: elevated creatinine Coding Level of Care Code Acute Jewelry Sales Associate for Smiley Polk
--- NOTE | 2020-12-11 12:26 | PC.CHAP ---
Pastoral Care Encounter/Spiritual Assessment Type of Contact [] Declined adult educator visit [] Patient/Family/Request visit [] Outpatient visit [] Follow-up visit [] Physician referral [] Code/Alert [] Routine visit [] Staff referral [] Actively dying [] Patient sleeping [] Family support [] [] Out of room [] Palliative care [] [xx] Receiving care in room [] Pre-surgical visit [] Trauma [] Long length of stay [] ICU visit [] Other: Relational/Emotional Strength [] Patient feels connected with others/family/visitors/staff [] Distress [] Loneliness/isolation [] Abandonment Spirituality of Patient [] Person of [place] [] Attends Taoist of their [place] [] Believes in Prayer [] Reads Bible or Roman Catholic materials [] There are Spiritual issues to be addressed Toddler Teacher Interventions [] Prayer [] Active listening [] Non-anxious presence [] Spiritual/emotional support [] Crisis/trauma care [] Spiritual counseling [] Bereavement support [] Provided bereavement packet [] Provided Bible/devotional materials [] Provided toy/stuffed animal, coloring book to patient or family member [] Provided Communion [] Anointing/[place] [] Salvation [] Completed spiritual assessment [] Other: Impact on Illness or Injury [] Angry [] Fearful [] Anxious [] Often cries [] Exhaustion [] Unable to work [] Unable to attend yarsanism [] Unable to walk/stand [] Unable to read [] Unable to drive [] Unable to eat/drink [] Unable to sleep [] Unable to be with family [] Patient intubated [] Other: Summary Follow up needed Time spent with patient 1 minute
--- NOTE | 2020-12-11 13:13 | US_ITS ---
WS: [id number] ULTRASOUND ABDOMEN CLINICAL INFORMATION: new transaminitis, hepatitis vs fatty liver COMPARISON: None. FINDINGS: Liver Size: Enlarged Craniocaudal length: 22.6 cm. Echogenicity: Diffuse fatty infiltration. Surface nodularity: None. Mass (size and location): None. Bile ducts Intrahepatic ducts: Normal. Common bile duct diameter: 0.5 cm. Gallbladder Removed Pancreas Not well visualized Spleen Splenomegaly: None. Craniocaudal length: 11.0 cm. Right kidney: Normal. Hydronephrosis: None. Size: 11.3 cm x 7.0 cm x 7.6 cm Left kidney: Nonobstructing left renal parenchymal calculi largest measuring 7 mm. Hydronephrosis: None. Size: 13.1 cm x 5.9 cm x 6.8 cm. Abdominal aorta and IVC Visualized portions are normal. Ascites: None. US/US abdomen complete* [id number] IMPRESSION: 1. Hepatomegaly with diffuse fatty infiltration. 2. Gallbladder has been removed. 3. Pancreas not well visualized. 4. No hydronephrosis in either kidney. 5. Nonobstructing left renal parenchymal calculi.
--- NOTE | 2020-12-11 13:50 | PM.PN ---
Subjective Subjective: Interval history: leukocytosis improving to 12, afebrile, hemodynamically stable, cr increasing to 5 today.urine output 600cc Medications: Reviewed: Yes Vitals/I&O/Wt Last Vital Signs Temp 98.1 F 12/11/20 10:55 Pulse 73 12/11/20 10:55 Resp 20 H 12/11/20 10:55 BP 110/65 12/11/20 10:55 Pulse Ox 93 12/11/20 10:55 12/10/20 12/11/20 12/11/20 22:59 06:59 14:59 Intake Total 840 / 1750 100 / 1850 1480 / 1480 Output Total 850 / 1150 200 / 1350 300 / 300 Balance -10 / 600 -100 / 500 1180 / 1180 Physical Exam Narrative: EXAM NARRATIVE: GEN: Awake, alert and oriented, no acute distress CVS: S1S2 N RS: CTA B/L Abd: Soft, nt/nd , bs+ REGISTERED NURSE PRACTITIONER: no focal neuro deficits Urinary Catheter Management^: Cuellar: Cath Placed During This Visit: yes, but has since been removed by the nurse Urinary Catheter Date of Insertion: 12/09/20 Urinary Catheter Time of Insertion: 07:30 Date Urinary Catheter Removed: 12/09/20 Time Urinary Catheter Discontinued: 14:00 Data : 12/11/20 09:15 12/11/20 09:15 Micro: Microbiology 12/10/20 13:35 Blood Culture - Preliminary Blood NEGATIVE TO DATE 12/10/20 15:52 Urine Culture - Preliminary Urine,Clean Catch 12/10/20 15:53 Blood Culture - Preliminary Blood SPECIMEN COLLECTED A&P Assessment and plan (1) Leukocytosis: MAy be related to stress reaction post surgical intervention, however given interim development of hypotension, ANITHA and transaminitis, need to exclude sepsis check blood culture , UA, urine cx, pending results CXR on 12/09 without any consolidation or atelactasis relatively early for surgical site infection, lower on the differential Procal + 1.4 Afberile currently Continue Ciprofloxacin renally dosed while undergoing sepsis w/up. Unable to tell me nature of allergy to PCN or cephalosporins Status: Acute (2) ANITHA (acute kidney injury): May be related to hypoperfusion from blood loss (~1500 cc estimated perioperatively), hypotension maintainence fluid @ 75 cc/hr GI losses may be contributing to hypovolemia given excessive vomiting Monitor strict i/o Bladder scan to evalute for urinary retention negative for the same US renal twithout hydronephrosis limited echo with EF 58%, no RWMA Stop Lisinopril and toradol nephorlogy consult Status: Acute (3) Transaminitis: likely from hypoperfusion, ischemic hepatitis check acute hepatitis screen US liver Status: Acute (4) CAD (coronary artery disease): Past h/o CAD current troponin series without aisgnificant delta Continue ASA 81mg, hold Plavix for now given hypotension, ongoing bleeding , resume at discharge if Hb stable Status: Acute (5) Status post laminectomy with spinal fusion: POD #0 Post op management, wound care per ortho hydrocodone, toradol for pain management Status: Chronic (6) Sleep apnea: Has a diagnosis of sleep apnea, recommended to wear CPAP at home, however does not wear it due to claustrophobia. Declines CPAP here, only wishes to wear 02. States that with all his previous surgeries his 02 sat noted to be late 80s. Status: Acute (7) Nicotine dependence: declines nicotine patch ? h/o COPD, add duoneb q4h prn Status: Acute (8) Hypertension: Stop lisinopril given hypotension and ANITHA IF hypertensive, will use Amlodipdine , currently BP controlled Status: Acute Attestations Medical Necessity Statement*: worsening ANITHA, renal consult, monitor urine output Coding Level of Care Code Acute Lumber Racker for Chg Fwd Diagnoses Leukocytosis D72.829 ANITHA (acute kidney injury) N17.9 Transaminitis R74.01 CAD (coronary artery disease) I25.10 Status post laminectomy with spinal fusion Z98.1 Sleep apnea G47.30 Nicotine dependence F17.200 Hypertension I10
--- NOTE | 2020-12-11 15:55 | PC.NURSE ---
Comer catheter was not placed. Patient refused comer then stated that if the telenephrology thought he needed he would agree to have it placed. Telenephrology stated she did not feel like he needed it at this time. Comer catheter was not placed.
--- NOTE | 2020-12-11 16:07 | PM.CONSULT ---
Providers/Reason For Consult Consulting Physican/Specialty*: Zakia Martin, telenephrology Reason for Consult*: Acute kidney injury Attending Physician: Kumar Tobin DO Primary Care Provider: Arsen Hernandez History of Present Illness History of Present Illness Jesse Carbajal is a 50 year old male who had back surgery 12/09/20. Serum Cr 1.07 mg/dL 11/19/20. Developed post-op ANITHA. Had severe pain, N/V, hypotension post-op. Was on lisinopril as outpatient. Passing urine well. Denies use of NSAIDs prehospitalization. Meds/Allergies Home Medications and Allergies Home Medications Medication Instructions Recorded Confirmed Last Taken Type clopidogrel 75 mg tablet 75 mg PO DAILY@12/17/19 12/10/20 12/03/20 History lisinopril 20 mg tablet 20 mg PO DAILY@08/28/20 12/10/20 12/06/20 History Custome orthodic back brace #1 ea 09/02/20 12/10/20 Unknown Rx docusate sodium [Colace] 100 mg PO BID #30 cap 09/07/20 12/09/20 1 Month Ago Rx ~11/08/20 tizanidine 4 mg tablet 4 mg PO BID PRN #60 tab 10/15/20 12/09/20 12/08/20 Rx aspirin 81 mg tablet,delayed 81 mg PO DAILY@11/10/20 12/10/20 12/06/20 History release trazodone 150 mg tablet 150 mg PO DAILY@209911/10/20 12/10/20 12/08/20 History Bone Growth Stimulator [id number] #1 ea 12/08/20 12/10/20 Unknown Rx bariatric lift chair #1 ea 12/08/20 12/10/20 Unknown Rx oxycodone-acetaminophen 1 tab PO Q4H PRN 7 Days #60 tab 12/11/20 Unknown Rx Allergies Allergy/AdvReac Type Severity Reaction Status Date / Time Bleach (Sodium Hypochlorite) Allergy ALGY-Anaphy Verified 11/10/20 10:34 laxis Penicillins Allergy ALGY-Anaphy Verified 11/10/20 10:34 laxis Current Medications Current Medications Generic Name Dose Route Start Last Admin Trade Name Freq PRN Reason Stop Dose Admin Hydrocodone Bitart/Acetaminophen 1 - 2 tab 12/09/20 14:21 02/10/21 23:59 Hydrocodone-Acetaminophen 5-325 Mg Tablet PO 2 tab Q4H PRN Administration MODERATE TO SEVERE PAIN Al Hydrox/Mg Hydrox/Simethicone 30 ml 12/09/20 14:21 12/10/20 13:43 Ywpg-Eml-Hjdhsoswk-Dickson 30 Ml Udc PO 30 ml Q4H PRN Administration INDIGESTION Aspirin 81 mg 12/10/20 09:00 12/11/20 08:01 Aspirin 81 Mg Ec Tablet PO 81 mg DAILY HAIDER Administration Docusate Sodium 100 mg 12/09/20 18:00 12/11/20 08:01 Docusate Sodium 100 Mg Capsule PO Not Given BID HAIDER Famotidine 20 mg 12/10/20 14:00 12/11/20 02:20 Famotidine 20 Mg/2 Ml Inj IVP 20 mg Q12H HAIDER Administration Ciprofloxacin/Dextrose 200 mg in 100 mls @ 100 mls/hr 12/10/20 14:00 12/11/20 04:19 Cipro IV Infused Q12H [facility] Infusion Protocol Sodium Chloride 1,000 mls @ 75 mls/hr 12/10/20 15:45 12/11/20 07:56 Sodium Chloride 0.9% IV 75 mls/hr .[id number] HAIDER Administration Metoclopramide HCl 10 mg 12/10/20 13:24 12/10/20 14:11 Metoclopramide 5 Mg/Ml Sdv 2 Ml IVP 10 mg Q8H PRN Administration NAUSEA AND VOMITING Morphine Sulfate 2 mg 12/09/20 16:04 12/10/20 01:39 Morphine 4 Mg/Ml Sdv 1 Ml IVP 2 mg Q4H PRN Administration SEVERE PAIN Ondansetron HCl 4 mg 12/09/20 14:21 12/09/20 23:58 Ondansetron 2 Mg/Ml Sdv 2 Ml IVP 4 mg Q6H PRN Administration NAUSEA AND VOMITING Oxycodone/Acetaminophen 1 - 2 tab 12/10/20 08:01 12/10/20 22:19 Oxycodone-Apap 10-325 Mg Tablet PO 2 tab Q6H PRN Administration MODERATE TO SEVERE PAIN Tizanidine HCl 4 mg 12/09/20 14:24 12/11/20 02:20 Tizanidine 4 Mg Tablet PO 4 mg BID PRN Administration muscle spasticity Trazodone HCl 150 mg 12/09/20 21:00 12/10/20 22:19 Trazodone 150 Mg Tablet PO 150 mg BEDTIME PRN Administration SLEEP PFSH Acute PFSH: Medical History CAD (coronary artery disease) Cervical disc disorder with myelopathy of mid-cervical region CVA (cerebral vascular accident) Hypertension Nicotine dependence Renal stones Sleep apnea Status post laminectomy with spinal fusion Surgical History History of back surgery 06/2015 [place], [place]. Lumbar fusion/fixation. multilevel pedicle screw fixation T10 and S1 with bilateral iliac screws. Interbody fusion L4-L5. 06/2009 [place], [place] Lumbar fusion/fixation Status post laparoscopic cholecystectomy (09/07/20) Family History Mother Cancer Hypertension Father Cancer Hypertension Stroke Grandmother Cancer Grandfather Cancer Denies family history of Anesthesia complication Bleeding disorder Social History Smoking and tobacco status: current every day smoker cigarettes Packs smoked per day: 1 Alcohol intake: never Lives independently: Yes Household members: none Marital status: Current occupational status: disabled History of recent travel: No Vitals/I&O/Wt Last Vital Signs Temp 97.9 F 12/11/20 15:44 Pulse 84 12/11/20 15:44 Resp 18 12/11/20 15:44 BP 135/74 12/11/20 15:44 Pulse Ox 92 12/11/20 15:44 12/11/20 12/11/20 12/11/20 06:59 14:59 22:59 Intake Total 100 / 1850 1720 / 1720 Output Total 200 / 1350 500 / 500 200 / 700 Balance -100 / 500 1220 / 1220 -200 / 1020 Physical Exam Const: COMMON NORMALS: no acute distress GENERAL APPEARANCE: cooperative NUTRITIONAL APPEARANCE: obese Extremity: GENERAL: Yes edema Urinary Catheter Management^: Cuellar: Cath Placed During This Visit: yes, but has since been removed by the nurse Urinary Catheter Date of Insertion: 12/09/20 Urinary Catheter Time of Insertion: 07:30 Date Urinary Catheter Removed: 12/09/20 Time Urinary Catheter Discontinued: 14:00 Data Labs: Other Labs: urine sodium 14 Micro: Micro: Microbiology 12/10/20 15:53 Blood Culture - Pr eliminary Blood NEGATIVE TO RADHA E 12/10/20 13:35 Blood Culture - Pr eliminary Blood NEGATIVE TO RADHA E 12/10/20 15:52 Urine Culture - Pr eliminary Urine,Clean Catch Other Data: Other data: ABdominal ultrasound 1. Hepatomegaly with diffuse fatty infiltration. 2. Gallbladder has been removed. 3. Pancreas not well visualized. 4. No hydronephrosis in either kidney. 5. Nonobstructing left renal parenchymal calculi. A&P Additional A&P Information Impression: Acute nonoliguric kidney injury, related to volume depletion, hypotension. Rule-out rhabdomyolysis Recommend: check CK, continue with hydration. Do not resume lisinopril. Coding Level of Care Code Acute Lighting Technician for Smiley Polk
--- NOTE | 2020-12-11 17:31 | PC.RESP ---
SMOKING CESSATION INFORMATION SENT TO PATIENT.
[2020-12-11] MEDS: oxyCODONE-APAP 10-325 mg Tablet PO ×2 (17:50→23:30)
[2020-12-11] MEDS: trazodone 150 mg Tablet PO (23:30)
--- NOTE | 2020-12-11 23:53 | PM.EVENT ---
Event Note Event Note: CK level came back around 37,000. Discussed with Dr. Motta and at this point will increase IV fluids to 125 cc an hour of normal saline. CK recheck is ordered for in the morning. He has a low positive fluid balance. Blood pressures have been a little low at times. No history of CHF noted on review of problem list or past medical history though I do note that he has a history of coronary artery disease.
[2020-12-12 00:03] VITALS: BP 104/58; PULSE 87; RESP 18; TEMP 36.9; O2SAT 95
[2020-12-12 02:11] LABS: CKMB Relative Index 0.3 % (0.0-5.3)
[2020-12-12] MEDS: famotidine 20 mg/2 mL INJ IVP (02:28)
[2020-12-12] MEDS: ciprofloxacin 200 MG/100 ML PREMIX 100 MG IV (02:29)
[2020-12-12 04:00] VITALS: BP 100/64; PULSE 76; RESP 19; TEMP 36.9; O2SAT 90
[2020-12-12 05:51] LABS: Basophils % 0.3 %; Eosinophils # 0.1 10^3/uL (0.0-0.8); Eosinophils % 1.5 %; Hematocrit 33.2 % (42.0-52.0); Hemoglobin 10.9 g/dL (11.7-16.6); Lymphocytes # 1.3 10^3/uL (0.8-4.8); Lymphocytes % 13.3 %; Mean Corpuscular HGB Conc 32.8 g/dL (30.0-36.0); Mean Corpuscular Hemoglobin 29.9 pg (28.0-34.0); Mean Corpuscular Volume 91.2 fL (80-94); Monocytes % 11.1 %; Neutrophils % 73.4 %; Nucleated Red Blood Cells % 0 %; Platelet Count 192 10^3/cmm (130-400); Red Blood Count 3.64 10^6/uL (4.1-5.3); Red Cell Distribution Width 13.3 % (12.1-15.1); White Blood Count 9.4 10^3/uL (4.0-10.0)
[2020-12-12 06:15] LABS: Alanine Aminotransferase 144 U/L (0-41); Albumin Level 2.7 g/dL (3.5-5.2); Alkaline Phosphatase 49 IU/L (40-130); Anion Gap 14.4 (5-19); Aspartate Amino Transferase 246 U/L (0-40); Blood Urea Nitrogen 56 mg/dL (6-20); Calcium 7.8 mg/dL (8.5-10.5); Carbon Dioxide 22 mmol/L (22-29); Chloride 99 mmol/L (98-107); Globulin 2.5 g/dL (1.3-4.6); Glomerular Filtration Rate 20.7 mL/min (90-130); Glucose 117 mg/dL (65-115); Osmolality Calculated 289 mOsm/kg (285-295); Potassium 4.4 mmol/L (3.5-5.1); Sodium 131 mmol/L (136-145); Total Bilirubin 0.2 mg/dL (0.15-1.2); Total Protein 5.2 g/dL (6.6-8.7)
--- NOTE | 2020-12-12 07:19 | NUR.SHIFT ---
Patient had a good night, with pain well controlled by oxycodone. Patient has had 2100ml of UO through the night. Patient is eager to be discharged.
[2020-12-12 08:00] VITALS: BP 112/67; PULSE 76; RESP 18; TEMP 36.8; O2SAT 92
[2020-12-12 08:11] VITALS: PULSE 98; RESP 18; O2SAT 92
[2020-12-12] MEDS: aspirin 81 mg EC Tablet PO (08:21)
[2020-12-12] MEDS: sodium chloride 0.9% 1,000 ML 125 ML IV (08:22)
[2020-12-12] MEDS: HYDROcodone-acetaminophen 5-325 mg Tablet PO (08:24)
[2020-12-12 08:39] LABS: Phosphorus 4.9 mg/dL (2.5-4.5)
--- NOTE | 2020-12-12 10:04 | PM.PN ---
Subjective Subjective: Interval history: feels better, walking in hallway. Reports gluteal muscle pain. Able to drink several liters/d. no trouble urinating. Insistent on discharge today due to transportation issues. Medications: Reviewed: Yes Vitals/I&O/Wt Last Vital Signs Temp 98.3 F 12/12/20 08:00 Pulse 98 12/12/20 08:11 Resp 18 12/12/20 08:11 BP 112/67 12/12/20 08:00 Pulse Ox 92 12/12/20 08:11 12/11/20 12/12/20 12/12/20 22:59 06:59 14:59 Intake Total 2340 / 4060 857.5 / 4917.5 1155 / 1155 Output Total 1000 / 1500 1750 / 3250 1200 / 1200 Balance 1340 / 2560 -892.5 / 1667.5 -45 / -45 Physical Exam Const: COMMON NORMALS: no acute distress GENERAL APPEARANCE: cooperative NUTRITIONAL APPEARANCE: obese Extremity: GENERAL: Yes edema Urinary Catheter Management^: Cuellar: Cath Placed During This Visit: yes, but has since been removed by the nurse Reason for Continuing Indwelling Catheter: Not indwelling catheter Urinary Catheter Date of Insertion: 12/09/20 Urinary Catheter Time of Insertion: 07:30 Date Urinary Catheter Removed: 12/09/20 Time Urinary Catheter Discontinued: 14:00 Data : 12/12/20 05:36 12/12/20 05:36 Other Labs: CK 26,317, transaminitis improving Micro: Microbiology 12/10/20 15:53 Blood Culture - Preliminary Blood NEGATIVE TO DATE 12/10/20 13:35 Blood Culture - Preliminary Blood NEGATIVE TO DATE 12/10/20 15:52 Urine Culture - Preliminary Urine,Clean Catch A&P Additional A&P Information Impression: Acute nonoliguric kidney injury, related to volume depletion, hypotension, rhabdomyolysis. Excellent urine output, serum Cr and CK falling. Recommend: continue IVF hydration. Do not resume lisinopril. Attestations Medical Necessity Statement*: I recommend that Jesse remain in hospital receiving IVF until CK is much improved. Coding Level of Care Code Acute Fingernail Sculpturer for Smiley Polk
--- NOTE | 2020-12-12 11:03 | PM.PN ---
Subjective Subjective: Interval history: Patient remains afebrile, hemodynamically stable, leukocytosis is resolved today. Creatinine improving to 3.2. Urine output at 5 L. CPK grossly elevated at over 30,000, suggestive of rhabdomyolysis which would additionally explain his acute kidney injury. Patient is insistent on returning home today, states he wants to get home before inclement weather over the weekend. Medications: Reviewed: Yes Vitals/I&O/Wt Last Vital Signs Temp 98.3 F 12/12/20 08:00 Pulse 98 12/12/20 08:11 Resp 18 12/12/20 08:11 BP 112/67 12/12/20 08:00 Pulse Ox 92 12/12/20 08:11 12/11/20 12/12/20 12/12/20 22:59 06:59 14:59 Intake Total 2340 / 4060 857.5 / 4917.5 1155 / 1155 Output Total 1000 / 1500 1750 / 3250 1500 / 1500 Balance 1340 / 2560 -892.5 / 1667.5 -345 / -345 Physical Exam Narrative: EXAM NARRATIVE: GEN: Awake, alert and oriented, no acute distress CVS: S1S2 N RS: CTA B/L Abd: Soft, nt/nd , bs+ SUBMARINE ELEMENT COORDINATOR: no focal neuro deficits extremities: Minimal edema over lower extremities, unchanged over day of admission Urinary Catheter Management^: Cuellar: Cath Placed During This Visit: yes, but has since been removed by the nurse Reason for Continuing Indwelling Catheter: Not indwelling catheter Urinary Catheter Date of Insertion: 12/09/20 Urinary Catheter Time of Insertion: 07:30 Date Urinary Catheter Removed: 12/09/20 Time Urinary Catheter Discontinued: 14:00 Data : 12/12/20 05:36 12/12/20 05:36 Micro: Microbiology 12/10/20 15:53 Blood Culture - Preliminary Blood NEGATIVE TO DATE 12/10/20 13:35 Blood Culture - Preliminary Blood NEGATIVE TO DATE 12/10/20 15:52 Urine Culture - Preliminary Urine,Clean Catch A&P Assessment and plan (1) Leukocytosis: Likely related to stress reaction post surgical intervention check blood culture , urine cx, remain negative to date, no focal sources of infection signs or symptoms, discontinue ciprofloxacin today CXR on 12/09 without any consolidation or atelactasis Afberile currently Leukocytosis is now resolved. Status: Acute (2) ANITHA (acute kidney injury): May be related to hypoperfusion from blood loss (~1500 cc estimated perioperatively), hypotension CPK returned grossly elevated at 39,000, likely that ANITHA was induced by rhabdomyolysis, overnight IV fluids were increased to 125 cc an hour. Currently creatinine is improving to 3.2, urine output is about 5 L. We did encourage patient to consider remaining in the hospital for more IV fluid resuscitation given rhabdomyolysis, however he is insisting on returning home today, states he will leave AMA if he is not discharged. Given that creatinine is currently trending down and urine output is improving, it would be okay to discharge him from a medicine standpoint with close follow-up with his primary care provider. I have stressed the importance of following up with Dr. Hernandez in the next 2 to 3 days for a repeat creatinine check and CPK check. He is also been instructed to only urinate in the urinal and measure his urine output. If his urine output drops to less than 500 cc per 24-hour., He is to return to the ER. Additionally if developing any signs or symptoms of uremia such as confusion, shortness of breath, worsening fluid removal no electrolyte abnormalities US renal without hydronephrosis , no urinary retention noted limited echo with EF 58%, no RWMA Stop Lisinopril and toradol nephorlogy consult appreciated Status: Acute (3) Transaminitis: likely from hypoperfusion, ischemic hepatitis check acute hepatitis screen US liver Status: Acute (4) CAD (coronary artery disease): Past h/o CAD current troponin series without significant delta Continue ASA 81mg, resume Plavix at discharge Status: Acute (5) Status post laminectomy with spinal fusion: Post op management, wound care per ortho hydrocodone, toradol for pain management Status: Chronic (6) Sleep apnea: Has a diagnosis of sleep apnea, recommended to wear CPAP at home, however does not wear it due to claustrophobia. currently saturating 90-92% on RA Status: Acute (7) Nicotine dependence: declines nicotine patch ? h/o COPD, f/up with PCP Status: Acute (8) Hypertension: Hold lisinopril on discharge, given ANITHA and hypotension Follow up with PCP in the next 2-3 days. Status: Acute (9) Rhabdomyolysis: received iv hydration, encouraged to continue adequate oral hydration upon discharge home Status: Acute Attestations Medical Necessity Statement*: rhabdomyolysis, ANITHA , per admitting note Coding Level of Care Code Acute Slicing Machine Operator for Chg Fwd Diagnoses Leukocytosis D72.829 ANITHA (acute kidney injury) N17.9 Transaminitis R74.01 CAD (coronary artery disease) I25.10 Status post laminectomy with spinal fusion Z98.1 Sleep apnea G47.30 Nicotine dependence F17.200 Hypertension I10 Rhabdomyolysis M62.82
--- NOTE | 2020-12-12 11:05 | PC.CHAP ---
Pastoral Care Encounter/Spiritual Assessment Type of Contact [] Declined heel coverer machine operator visit [] Patient/Family/Request visit [] Outpatient visit [XX] Follow-up visit [] Physician referral [] Code/Alert [XX] Routine visit [] Staff referral [] Actively dying [] Patient sleeping [] Family support [] [] Out of room [] Palliative care [] [] Receiving care in room [] Pre-surgical visit [] Trauma [] Long length of stay [] ICU visit [] Other: Relational/Emotional Strength [] Patient feels connected with others/family/visitors/staff [XX] Distress [] Loneliness/isolation [] Abandonment Spirituality of Patient [XX] Person of Sommer [XX] Attends Christian of their Sommer [XX] Believes in Prayer [XX] Reads Bible or Taoism materials [] There are Spiritual issues to be addressed Revenue Stamp Cutter Interventions [] Prayer [XX] Active listening [XX] Non-anxious presence [] Spiritual/emotional support [] Crisis/trauma care [] Spiritual counseling [] Bereavement support [] Provided bereavement packet [] Provided Bible/devotional materials [] Provided toy/stuffed animal, coloring book to patient or family member [] Provided Communion [] Anointing/[place] [] Salvation [XX] Completed spiritual assessment [] Other: Impact on Illness or Injury [XX] Angry [] Fearful [] Anxious [] Often cries [] Exhaustion [] Unable to work [] Unable to attend bahai [] Unable to walk/stand [] Unable to read [] Unable to drive [] Unable to eat/drink [] Unable to sleep [] Unable to be with family [] Patient intubated [] Other: Summary: Pt is upset. Pt states that he has a large burn across his chest from something that they did during surgery to stimulate the nerves. He states that he became dehydrated and that is why his renal and liver labs are abnormal. He wants to go home today but is unsure if they will discharge him. His girlfriend drove in from [place] to pick him up yesterday. He lives in [facility]. When we discussed his sommer, he states that his sample tester knows that he is in the hospital; he attends [employer] in [facility], and reads [employer] daily on his phone. However, he declined my offer of prayer and calmed down a small amount after our conversation. Time spent with patient: 10 mins
[2020-12-12 11:50] VITALS: BP 133/72; PULSE 83; RESP 20; TEMP 36.8; O2SAT 90
[2020-12-12 14:59] VITALS: BP 133/72; PULSE 83; RESP 20; TEMP 36.8; O2SAT 90
== END 2020-12-12 15:00 | disposition home or self-care (01) | DRG 460 ==
LOC: MEDSURG 14:15
PROVIDERS: Anesthesiology; Internal Medicine; Student in an Organized Health Care Education/Training Program; Admitting Provider Orthopaedic Surgery; PCP Family Medicine; Visit Provider Orthopaedic Surgery
PROC: 0SG30AJ Fusion of Lumbosacral Joint with Interbody Fusion Device, Posterior Approach, Anterior Column, Open Approach (ICD-10-PCS; principal; 2020-12-09 07:00)
DX: M96.0 Pseudarthrosis after fusion or arthrodesis (principal); N17.9 Acute kidney failure, unspecified; M62.82 Rhabdomyolysis; Z68.41 Body mass index [BMI] 40.0-44.9, adult; I25.10 Atherosclerotic heart disease of native coronary artery without angina pectoris; I10 Essential (primary) hypertension; F17.210 Nicotine dependence, cigarettes, uncomplicated; G47.33 Obstructive sleep apnea (adult) (pediatric); Z79.02 Long term (current) use of antithrombotics/antiplatelets; Z79.82 Long term (current) use of aspirin; Z98.1 Arthrodesis status; I95.9 Hypotension, unspecified; Z86.73 Personal history of transient ischemic attack (TIA), and cerebral infarction without residual deficits; I25.2 Old myocardial infarction; E66.01 Morbid (severe) obesity due to excess calories
CPT/HCPCS: 12345; 36415; 51702; 51798; 71045; 72100; 76000; 76700; 80053; 81001; 82436; 82550; 82553; 84100; 84133; 84145; 84300; 84484; 85014; 85018; 85025; 86705; 86706; 86709; 86803; 86850; 86900; 86920; 87040; 87086; 87340; 93005; 93308; 97116; 97162; 97530; C1713; C9359; J0131; J0744; J1100; J1170; J1644; J1885; J2270; J2405; J2704; J2765; J3010; J3370; J3490; J7030; J7040; J7611; Q3014

== ENCOUNTER 2020-12-19 04:11 | Emergency (ER) | payer MEDICAID, SELFPAY ==
[2020-12-19] VITALS (8 sets, daily range): BP systolic 119–154; BP diastolic 41–67; PULSE 75–93; RESP 18–24; TEMP 37–37.3; O2SAT 91–97; BMI 42.5
--- NOTE | 2020-12-19 04:19 | ED_ITS ---
Documented by User: Keon Ni DO 12/19/20 06:09 HPI - Back Pain/Injury General: Chief Complaint: Back Pain/Injury Stated Complaint: back pain and drainage Time Seen by Provider: 12/19/20 04:17 History of Present Illness: HPI Narrative: 50-year-old male who had lumbar fusion on 12/09. He states that he did well postoperatively until 3 days or so ago, when he began to get increased pain. He has had home health changing his dressing, which is looked good. He notes that 3 days ago, he began to get pain in his lower back, on the right side greater than the left, with pain to his right groin area. There is no numbness or loss of sensation. No bowel or bladder dysfunction. No fever. Early this morning, he had had increased pain, got up to urinate, and felt a drainage out of his incision. He presents for evaluation. MD elicited complaint: back pain Pertinent past history: prior back pain Onset (ago): day(s) Timing: constant and progressively worsening Severity: severe Similar Symptoms Previously: Yes Quality: burning, sharp and aching Location: lumbar spine Radiation: none Exacerbating factors: movement Context: unknown Associated symptoms: Reports chills and difficulty walking; Deny abdominal pain or dysuria Review of Systems Const: Reports: chills ENMT: Denies: throat pain GI: Denies: abdominal pain : Denies: dysuria Neuro: Reports: difficulty walking; Denies: headache(s), numbness in extremities, sensory changes, dizziness or difficulty communicating thoughts PFS ED PFSH: Medical History CAD (coronary artery disease) Cervical disc disorder with myelopathy of mid-cervical region CVA (cerebral vascular accident) Hypertension Nicotine dependence Renal stones Sleep apnea Status post laminectomy with spinal fusion Surgical History History of back surgery 06/2015 [place], [place]. Lumbar fusion/fixation. multilevel pedicle screw fixation T10 and S1 with bilateral iliac screws. Interbody fusion L4-L5. 06/2009 [place], [place] Lumbar fusion/fixation Status post laparoscopic cholecystectomy (09/07/20) Family History Mother Cancer Hypertension Father Cancer Hypertension Stroke Grandmother Cancer Grandfather Cancer Denies family history of Anesthesia complication Bleeding disorder Social History Smoking and tobacco status: current every day smoker cigarettes Packs smoked per day: 1 Alcohol intake: never Lives independently: Yes Household members: none Marital status: Current occupational status: disabled History of recent travel: No Physical Exam Const: GENERAL APPEARANCE: cooperative and in distress HENMT: COMMON NORMALS: normocephalic HEAD & SCALP: normocephalic FACE & SINUS: normal facial exam Chest: Breast/axilla inspection: Yes no chest deformity, asymmetry, normal contours, no nodules, masses, tenderness BREAST/AXILLA PALPATION: Yes abnormal palpation of the breast Resp: EFFORT & INSPECTION: Yes tachypneic, No respiratory distress, No decreased respiratory effort and No pursed lip breathing Cardio: COMMON NORMALS: negative for regular rate RATE: abnormal rate GI: COMMON NORMALS: Normal to inspection, nondistended, normoactive bowel sounds present Course Vital Signs: Vital signs: Vital Signs Temperature 98.6 F 12/19/20 08:06 Pulse Rate 75 12/19/20 08:06 Respiratory Rate 20 H 12/19/20 08:06 Blood Pressure 129/51 12/19/20 08:06 Pulse Oximetry 97 12/19/20 08:06 MDM - Back Pain/Injury MDM Narrative: Medical decision making narrative: 50-year-old male postoperative lumbar fusion. He presents with an increase in back pain, radiating to bilateral buttocks. He has no saddle anesthesia, no loss of bowel or bladder function. No fever. He had drainage from his surgical site this morning. White blood cell count is 15. Hemoglobin 10. CRP is 93. ESR is pending. CTs of the lumbar spine and pelvis are pending as well. These are done with contrast. The patient will be checked out to Dr. Corey for follow- up on CT imaging at shift change. Lab Data: Labs: Lab Results 12/19/20 12/19/20 12/19/20 Range/Units 01:20 01:20 01:20 WBC 15.0 H (4.0-10.0) 10^3/ uL RBC 3.32 L (4.1-5.3) 10^6/u L Hgb 9.9 L (11.7-16.6) g/dL Hct 30.9 L (42.0-52.0) % MCV 93.1 (80-94) fL MCH 29.8 (28.0-34.0) pg MCHC 32.0 (30.0-36.0) g/dL RDW 13.4 (12.1-15.1) % Plt Count 391 (130-400) 10^3/c mm MPV 9.2 (7.4-10.4) fL Neut % (Auto) 75.8 % Lymph % (Auto) 11.8 % Hill % (Auto) 9.2 % Eos % (Auto) 2.0 % Baso % (Auto) 0.3 % Neut # (Auto) 11.41 H (1.8-7.7) 10^3/u L Lymph # (Auto) 1.8 (0.8-4.8) 10^3/u L Hill # (Auto) 1.4 H (0.2-0.9) 10^3/u L Eos # (Auto) 0.3 (0.0-0.8) 10^3/u L Baso # (Auto) 0.0 (0.0-0.1) 10^3/u L Nucleated RBC % (a uto) 0 % Nucleated RBCs # 0.0 /100WBC ESR 75 H (0-10) mm/hr Sodium 137 (136-145) mmol/L Potassium 4.4 (3.5-5.1) mmol/L Chloride 100 (98-107) mmol/L Carbon Dioxide 28 (22-29) mmol/L Anion Gap 13.4 (5-19) BUN 14 (6-20) mg/dL Creatinine 0.8 (0.7-1.2) mg/dL GFR Calculation 102.3 (90-130) mL/min Glucose 107 (65-115) mg/dL Calculated Osmolal ity 285 (285-295) mOsm/k g Calcium 8.4 L (8.5-10.5) mg/dL Total Bilirubin 0.2 (0.15-1.2) mg/dL AST 25 (0-40) U/L ALT 56 H (0-41) U/L Alkaline Phosphata se 49 (40-130) IU/L C-Reactive Protein 92.6 H (0.0-4.9) mg/L Total Protein 5.7 L (6.6-8.7) g/dL Albumin 2.9 L (3.5-5.2) g/dL Globulin 2.8 (1.3-4.6) g/dL Procalcitonin 0.11 (0-0.5) ng/mL Discharge Plan Discharge Patient Disposition: Home Clinical Impression: Seroma after procedure Condition: Stable Prescriptions: New Bactrim DS 800-160 mg tablet 1 tab PO BID 10 Days Qty: 20 RF: 0 No Action clopidogrel [Plavix] 75 mg tablet 75 mg PO DAILY@06 RF: 0 Hold Instructions: Resume on 09/09/20. tizanidine 4 mg tablet 4 mg PO BID PRN (Reason: muscle spasticity) Qty: 60 RF: 0 trazodone 150 mg tablet 150 mg PO DAILY@2100 RF: 0 aspirin [Adult Low Dose Aspirin] 81 mg tablet,delayed release (DR/EC) 81 mg PO DAILY@06 RF: 0 (DME) Custome orthodic back brace See Rx Instructions .Route .MEDSUPPLY Qty: 1 RF: 0 (DME) bariatric lift chair See Rx Instructions .Route .MEDSUPPLY Qty: 1 RF: 0 (DME) Bone Growth Stimulator [id number] See Rx Instructions .Route .MEDSUPPLY Qty: 1 RF: 0 hydrocodone-acetaminophen [[place]] 7.5-325 mg tablet 1 tab PO Q6H PRN (Reason: pain) 7 Days Qty: 60 RF: 0 docusate sodium [Colace] 100 mg capsule 100 mg PO BID Qty: 30 RF: 0 Discharge Orders: Discharge ED (Routine); Ordered 12/19/20 Ordered By: Real Owens Referrals: Arsen Hernandez [Primary Care Provider] - Discharge Diet: Advance as tolerated Discharge Activity: Resume usual activity Patient Instructions: Acute Low Back Pain (ED), Opioid Safety Activity Restrictions/Additional Instructions: You have developed a seroma in your back which is common after procedures. Please start taking the Bactrim to help with a possible early infection and follow-up with Dr. Tobin next week as you already have planned. Return to the ER with worsening symptoms and watch for fevers. Coding Level of Care Code ED Central Sterile Tech for [place] Fwd Exam Detailed Documented by User: Real Owens MD 12/19/20 08:20 HPI - Back Pain/Injury General: Chief Complaint: Back Pain/Injury Stated Complaint: back pain and drainage Time Seen by Provider: 12/19/20 04:17 PFSH ED PFSH: Medical History CAD (coronary artery disease) Cervical disc disorder with myelopathy of mid-cervical region CVA (cerebral vascular accident) Hypertension Nicotine dependence Renal stones Sleep apnea Status post laminectomy with spinal fusion Surgical History History of back surgery 06/2015 [place], [place]. Lumbar fusion/fixation. multilevel pedicle screw fixation T10 and S1 with bilateral iliac screws. Interbody fusion L4-L5. 06/2009 [place], [place] Lumbar fusion/fixation Status post laparoscopic cholecystectomy (09/07/20) Family History Mother Cancer Hypertension Father Cancer Hypertension Stroke Grandmother Cancer Grandfather Cancer Denies family history of Anesthesia complication Bleeding disorder Social History Smoking and tobacco status: current every day smoker cigarettes Packs smoked per day: 1 Alcohol intake: never Lives independently: Yes Household members: none Marital status: Current occupational status: disabled History of recent travel: No Course Vital Signs: Vital signs: Vital Signs Temperature 98.6 F 12/19/20 08:06 Pulse Rate 75 12/19/20 08:06 Respiratory Rate 20 H 12/19/20 08:06 Blood Pressure 129/51 12/19/20 08:06 Pulse Oximetry 97 12/19/20 08:06 MDM - Back Pain/Injury Lab Data: Labs: Lab Results 12/19/20 12/19/20 12/19/20 Range/Units 01:20 01:20 01:20 WBC 15.0 H (4.0-10.0) 10^3/ uL RBC 3.32 L (4.1-5.3) 10^6/u L Hgb 9.9 L (11.7-16.6) g/dL Hct 30.9 L (42.0-52.0) % MCV 93.1 (80-94) fL MCH 29.8 (28.0-34.0) pg MCHC 32.0 (30.0-36.0) g/dL RDW 13.4 (12.1-15.1) % Plt Count 391 (130-400) 10^3/c mm MPV 9.2 (7.4-10.4) fL Neut % (Auto) 75.8 % Lymph % (Auto) 11.8 % Hill % (Auto) 9.2 % Eos % (Auto) 2.0 % Baso % (Auto) 0.3 % Neut # (Auto) 11.41 H (1.8-7.7) 10^3/u L Lymph # (Auto) 1.8 (0.8-4.8) 10^3/u L Hill # (Auto) 1.4 H (0.2-0.9) 10^3/u L Eos # (Auto) 0.3 (0.0-0.8) 10^3/u L Baso # (Auto) 0.0 (0.0-0.1) 10^3/u L Nucleated RBC % (a uto) 0 % Nucleated RBCs # 0.0 /100WBC ESR 75 H (0-10) mm/hr Sodium 137 (136-145) mmol/L Potassium 4.4 (3.5-5.1) mmol/L Chloride 100 (98-107) mmol/L Carbon Dioxide 28 (22-29) mmol/L Anion Gap 13.4 (5-19) BUN 14 (6-20) mg/dL Creatinine 0.8 (0.7-1.2) mg/dL GFR Calculation 102.3 (90-130) mL/min Glucose 107 (65-115) mg/dL Calculated Osmolal ity 285 (285-295) mOsm/k g Calcium 8.4 L (8.5-10.5) mg/dL Total Bilirubin 0.2 (0.15-1.2) mg/dL AST 25 (0-40) U/L ALT 56 H (0-41) U/L Alkaline Phosphata se 49 (40-130) IU/L C-Reactive Protein 92.6 H (0.0-4.9) mg/L Total Protein 5.7 L (6.6-8.7) g/dL Albumin 2.9 L (3.5-5.2) g/dL Globulin 2.8 (1.3-4.6) g/dL Procalcitonin 0.11 (0-0.5) ng/mL Discharge Plan Discharge Patient Disposition: Home Clinical Impression: Seroma after procedure Condition: Stable Prescriptions: New Bactrim DS 800-160 mg tablet 1 tab PO BID 10 Days Qty: 20 RF: 0 No Action clopidogrel [Plavix] 75 mg tablet 75 mg PO DAILY@06 RF: 0 Hold Instructions: Resume on 09/09/20. tizanidine 4 mg tablet 4 mg PO BID PRN (Reason: muscle spasticity) Qty: 60 RF: 0 trazodone 150 mg tablet 150 mg PO DAILY@2100 RF: 0 aspirin [Adult Low Dose Aspirin] 81 mg tablet,delayed release (DR/EC) 81 mg PO DAILY@06 RF: 0 (DME) Custome orthodic back brace See Rx Instructions .Route .MEDSUPPLY Qty: 1 RF: 0 (DME) bariatric lift chair See Rx Instructions .Route .MEDSUPPLY Qty: 1 RF: 0 (DME) Bone Growth Stimulator [id number] See Rx Instructions .Route .MEDSUPPLY Qty: 1 RF: 0 hydrocodone-acetaminophen [[place]] 7.5-325 mg tablet 1 tab PO Q6H PRN (Reason: pain) 7 Days Qty: 60 RF: 0 docusate sodium [Colace] 100 mg capsule 100 mg PO BID Qty: 30 RF: 0 Discharge Orders: Discharge ED (Routine); Ordered 12/19/20 Ordered By: Real Oewns Referrals: Arsen Hernandez [Primary Care Provider] - Discharge Diet: Advance as tolerated Discharge Activity: Resume usual activity Patient Instructions: Acute Low Back Pain (ED), Opioid Safety Activity Restrictions/Additional Instructions: You have developed a seroma in your back which is common after procedures. Please start taking the Bactrim to help with a possible early infection and fo llow-up with Dr. Tobin next week as you already have planned. Return to the ER with worsening symptoms and watch for fevers. Coding Level of Care Code ED Central Sterile Tech for [place] Fwd Exam Detailed
--- NOTE | 2020-12-19 04:39 | CTR_ITS ---
PROCEDURE INFORMATION: Exam: CT Pelvis With Contrast; Skeletal Exam date and time: 12/19/2020 4:43 AM Age: 50 years old Clinical indication: Hip pain and pelvic pain; Right hip; Prior surgery; Surgery type: Lumbar fusion revision; Additional info: Right hip/pelvis pain TECHNIQUE: Imaging protocol: Computed tomography images of the pelvis with intravenous contrast. Exam focused on the skeletal structures. Radiation optimization: All CT scans at this facility use at least one of these dose optimization techniques: automated exposure control; mA and/or kV adjustment per patient size (includes targeted exams where dose is matched to clinical indication); or iterative reconstruction. Contrast material: VISI; Contrast volume: 75 ml; Contrast route: INTRAVENOUS (IV); COMPARISON: CT Abdomen/Pelvis Renal [id number] 08/14/2020 2:41 PM RADIATION DOSE METRICS: Total DLP (mGy-cm): 1241.34 FINDINGS: Bones/joints: Lumbar spine findings are reported separately. Soft tissues: Unremarkable. CT/CT pelvis w con* [id number] IMPRESSION: There are no acute pelvic findings. Radiation Dose CTDIVOL = (mGy): DLP = 1241.34 (mGy-cm)
--- NOTE | 2020-12-19 04:39 | CTR_ITS ---
PROCEDURE INFORMATION: Exam: CT Lumbar Spine With Contrast Exam date and time: 12/19/2020 4:43 AM Age: 50 years old Clinical indication: Low back pain; Prior surgery; Surgery type: Lumbar fusion revision; Additional info: Back pain post surgery TECHNIQUE: Imaging protocol: Computed tomography images of the lumbar spine with intravenous contrast. Radiation optimization: All CT scans at this facility use at least one of these dose optimization techniques: automated exposure control; mA and/or kV adjustment per patient size (includes targeted exams where dose is matched to clinical indication); or iterative reconstruction. Contrast material: VISI; Contrast volume: 75 ml; Contrast route: INTRAVENOUS (IV); COMPARISON: CT lumbar spine wo con* [id number] 12/26/2019 2:26 PM RADIATION DOSE METRICS: Total DLP (mGy-cm): 2712.43 FINDINGS: Vertebrae: See Discs/Spinal canal/Neural foramina finding. Discs/Spinal canal/Neural foramina: Status post PLIF T12-S2. Beam hardening artifact decreases resolution. Prosthetic disc material is seen at the L5-S1. There is osseous fusion of the L4 and L5 vertebral bodies. Soft tissues: There is an elongated midline fluid collection seen in the paraspinous region exhibiting some subtle peripheral enhancement, findings that may represent postoperative seroma although a developing abscess cannot be excluded. Additionally, low attenuation is seen deep to the investing fascia of the paraspinous musculature on the midline likely representing postoperative fluid as well. Postoperative abscess cannot be excluded as well. Follow-up evaluation of these findings with pre and post contrast MRI imaging is suggested. CT/CT lumbar spine w con [id number] IMPRESSION: 1. Status post PLIF T12-S2 with unroofing L3-S1. 2. There is fluid attenuation seen in the subcutaneous fat and fascia the midline exhibiting some peripheral enhancement possibly representing postoperative seroma although developing abscess cannot be excluded. Additionally, deep to the investing fascia of the paraspinous musculature, there is low attenuation seen on the midline again likely representing postoperative seroma although abscess development cannot be excluded. As such, follow-up evaluation MRI the lumbar spine is suggested. Radiation Dose CTDIVOL = (mGy): DLP = 2712.43 (mGy-cm)
[2020-12-19] MEDS: ondansetron 2 mg/ML SDV 2 mL 4 MG IVP (04:47)
[2020-12-19] MEDS: ketorolac 30 mg/mL INJ IVP (04:47)
[2020-12-19] MEDS: HYDROmorphone 1 mg/mL INJ 1 mL 2 MG IVP (04:48)
[2020-12-19 04:57] LABS: Basophils % 0.3 %; Eosinophils # 0.3 10^3/uL (0.0-0.8); Hematocrit 30.9 % (42.0-52.0); Hemoglobin 9.9 g/dL (11.7-16.6); Lymphocytes # 1.8 10^3/uL (0.8-4.8); Lymphocytes % 11.8 %; Mean Corpuscular Hemoglobin 29.8 pg (28.0-34.0); Mean Corpuscular Volume 93.1 fL (80-94); Mean Platelet Volume 9.2 fL (7.4-10.4); Monocytes # 1.4 10^3/uL (0.2-0.9); Monocytes % 9.2 %; Neutrophils # 11.41 10^3/uL (1.8-7.7); Neutrophils % 75.8 %; Nucleated Red Blood Cells % 0 %; Platelet Count 391 10^3/cmm (130-400); Red Blood Count 3.32 10^6/uL (4.1-5.3); Red Cell Distribution Width 13.4 % (12.1-15.1)
[2020-12-19 05:13] LABS: Procalcitonin 0.11 ng/mL (0-0.5)
[2020-12-19 05:25] LABS: Alanine Aminotransferase 56 U/L (0-41); Albumin Level 2.9 g/dL (3.5-5.2); Alkaline Phosphatase 49 IU/L (40-130); Anion Gap 13.4 (5-19); Aspartate Amino Transferase 25 U/L (0-40); Blood Urea Nitrogen 14 mg/dL (6-20); C Reactive Protein 92.6 mg/L (0.0-4.9); Calcium 8.4 mg/dL (8.5-10.5); Carbon Dioxide 28 mmol/L (22-29); Chloride 100 mmol/L (98-107); Globulin 2.8 g/dL (1.3-4.6); Glomerular Filtration Rate 102.3 mL/min (90-130); Glucose 107 mg/dL (65-115); Osmolality Calculated 285 mOsm/kg (285-295); Potassium 4.4 mmol/L (3.5-5.1); Sodium 137 mmol/L (136-145); Total Bilirubin 0.2 mg/dL (0.15-1.2); Total Protein 5.7 g/dL (6.6-8.7)
[2020-12-19] MEDS: iodixanol 320 mg/mL 100mL Btl IV ×2 (05:59→06:01)
[2020-12-19 06:04] LABS: Erythrocyte Sedimentation Rate 75 mm/hr (0-10)
--- NOTE | 2020-12-19 07:48 | ED_ITS ---
HPI - Back Pain/Injury General: Chief Complaint: Back Pain/Injury Stated Complaint: back pain and drainage Time Seen by Provider: 12/19/20 04:17 History of Present Illness: HPI Narrative: I took over care of this patient at [address] Ni. Patient is a 50-year-old male with recent back surgery he had T12-S2 fused. He comes in today complaining of increased and low back pain and continued oozing from the wound. Denies fevers, chills. Severity: severe Similar Symptoms Previously: Yes Quality: burning, sharp and aching Exacerbating factors: movement Associated symptoms: Deny abdominal pain, difficulty walking, fatigue or urinary urgency Review of Systems General: Reports: 10 or more systems reviewed and unremarkable except in HPI and below Const: Denies: fatigue Eyes: Denies: change in vision, blurry vision or eye redness ENMT: Denies: throat pain, swelling of lips/tongue, ear or mastoid pain or nasal congestion Card: Denies: chest pain, palpitations, irregular heart rhythm, edema, dyspnea on exertion or orthopnea Resp: Denies: dyspnea, productive cough or non-productive cough GI: Denies: abdominal pain, diarrhea or GI cramping : Denies: flank pain, urinary frequency or urinary urgency Musc: Reports: back pain; Denies: neck pain, extremity pain, joint pain, joint redness, limited range of motion or muscle weakness Skin/Breast: Denies: rash, pruritus, erythema, skin pain or skin tenderness Neuro: Denies: headache(s), numbness in extremities, weakness in extremities, sensory changes, difficulty walking, dizziness, confusion or Slurred speech present Psych: Denies: anxiety or depression Endo: Denies: polyuria All/Imm: Denies: urticaria, throat swelling or tongue swelling PFSH ED PFSH: Medical History CAD (coronary artery disease) Cervical disc disorder with myelopathy of mid-cervical region CVA (cerebral vascular accident) Hypertension Nicotine dependence Renal stones Sleep apnea Status post laminectomy with spinal fusion Surgical History History of back surgery 06/2015 [facility], [place]. Lumbar fusion/fixation. multilevel pedicle screw fixation T10 and S1 with bilateral iliac screws. Interbody fusion L4-L5. 06/2009 [place], [place] Lumbar fusion/fixation Status post laparoscopic cholecystectomy (09/07/20) Family History Mother Cancer Hypertension Father Cancer Hypertension Stroke Grandmother Cancer Grandfather Cancer Denies family history of Anesthesia complication Bleeding disorder Social History Smoking and tobacco status: current every day smoker cigarettes Packs smoked per day: 1 Alcohol intake: never Lives independently: Yes Household members: none Marital status: Current occupational status: disabled History of recent travel: No Physical Exam Const: COMMON NORMALS: no acute distress, average body habitus, patient oriented x3, no limitations, healthy appearing, alert and well nourished GENERAL APPEARANCE: cooperative, comfortable, well kempt and well developed ORIENTATION/CONSCIOUSNESS: Yes awake, Yes oriented to person, Yes oriented to place and Yes oriented to time HENMT: COMMON NORMALS: normocephalic, external ears normal and Normal external nose present HEAD & SCALP: normal to inspection and normocephalic NOSE: Normal external nose present EXTERNAL EAR: Yes external ears normal MOUTH: Normal oral and palatal mucosa present THROAT: posterior oropharynx normal Eye: COMMON NORMALS: Equal, round and reactive pupils present and EOMs intact bilaterally GENERAL EYE: appearance normal, both eyes and all related structures PUPIL: Yes Equal, round and reactive pupils present Neck/C-Spine: COMMON NORMALS: full ROM, no lymphadenopathy, no meningeal signs and no JVD GENERAL: Yes normal visual inspection Lymph: LYMPHATIC: no lymphadenopathy noted Chest: COMMONS NORMALS: normal inspection of the chest and normal palpation of entire chest wall Resp: COMMON NORMALS: normal respiratory effort, No retractions, No use of accessory muscles, clear to auscultation bilaterally and percussion normal EFFORT & INSPECTION: Yes able to speak in complete sentences AUSCULTATION: c lear to auscultation bilaterally PERCUSSION: percussion normal Cardio: COMMON NORMALS: no JVD, regular rate, regular rhythm, S1 normal heart sound present, S2 normal heart sound present and Peripheral pulses 2+ throughout RATE: regular rate RHYTHM: regular rhythm HEART SOUNDS: S1 normal heart sound present and S2 normal heart sound present PERIPHERAL PULSES: Peripheral pulses 2+ throughout GI: COMMON NORMALS: Normal to inspection, nondistended, normoactive bowel sounds present, Soft to palpation, non-tender and no masses INSPECTION: Yes normal to inspection PALPATION: Yes Soft to palpation : COMMON NORMALS: Yes no CVA tenderness BLADDER/KIDNEY EXAM: Yes no CVA tenderness Back/Pelvis: COMMON NORMALS: no CVA tenderness OTHER: Posterior midline lower surgical scar healing well. No erythema. No significant discharge. Extremity: COMMON NORMALS: normal to inspection, full ROM, capillary refill normal, no joint enlargement and no pedal edema GENERAL: Yes normal exam except as noted Neuro: COMMON NORMALS: patient oriented x3, CN's II-XII intact bilaterally, moves all extremities, no focal motor deficits, no sensory deficits noted and gait normal SENSORIUM/ORIENTATION: Yes alert, Yes oriented to person, Yes oriented to place and Yes oriented to time MENINGEAL SIGNS: Yes no meningeal signs Psych: COMMON NORMALS: mental status grossly normal, Normal thought process present, cooperative, normal affect and speech normal APPEARANCE: Yes well kempt ATTITUDE: Yes calm SPEECH: Yes normal speech THOUGHT PROCESS: Normal thought process present Skin: COMMON NORMALS: no rashes or lesions noted GENERAL SKIN EXAM: no rashes or lesions noted Course Vital Signs: Vital signs: Vital Signs Temperature 99.1 F 12/19/20 04:18 Pulse Rate 81 12/19/20 06:47 Respiratory Rate 18 12/19/20 06:47 Blood Pressure 119/50 12/19/20 06:47 Pulse Oximetry 97 12/19/20 06:47 MDM - Back Pain/Injury MDM Narrative: Medical decision making narrative: Patient has increasing back pain. CT shows a seroma with possible enhancement. White blood cell count 15 when it was normal 7 days ago. Denies fevers. Discussed with Dr. Tobin who says to start him on Bactrim and he will see him next week. The patient has a follow-up appointment already scheduled on which is perfect. Return to the ER with worsening symptoms. Lab Data: Labs: Lab Results 12/19/20 12/19/20 12/19/20 Range/Units 01:20 01:20 01:20 WBC 15.0 H (4.0-10.0) 10^3/ uL RBC 3.32 L (4.1-5.3) 10^6/u L Hgb 9.9 L (11.7-16.6) g/dL Hct 30.9 L (42.0-52.0) % MCV 93.1 (80-94) fL MCH 29.8 (28.0-34.0) pg MCHC 32.0 (30.0-36.0) g/dL RDW 13.4 (12.1-15.1) % Plt Count 391 (130-400) 10^3/c mm MPV 9.2 (7.4-10.4) fL Neut % (Auto) 75.8 % Lymph % (Auto) 11.8 % [place] % (Auto) 9.2 % Eos % (Auto) 2.0 % Baso % (Auto) 0.3 % Neut # (Auto) 11.41 H (1.8-7.7) 10^3/u L Lymph # (Auto) 1.8 (0.8-4.8) 10^3/u L [place] # (Auto) 1.4 H (0.2-0.9) 10^3/u L Eos # (Auto) 0.3 (0.0-0.8) 10^3/u L Baso # (Auto) 0.0 (0.0-0.1) 10^3/u L Nucleated RBC % (a uto) 0 % Nucleated RBCs # 0.0 /100WBC ESR 75 H (0-10) mm/hr Sodium 137 (136-145) mmol/L Potassium 4.4 (3.5-5.1) mmol/L Chloride 100 (98-107) mmol/L Carbon Dioxide 28 (22-29) mmol/L Anion Gap 13.4 (5-19) BUN 14 (6-20) mg/dL Creatinine 0.8 (0.7-1.2) mg/dL GFR Calculation 102.3 (90-130) mL/min Glucose 107 (65-115) mg/dL Calculated Osmolal ity 285 (285-295) mOsm/k g Calcium 8.4 L (8.5-10.5) mg/dL Total Bilirubin 0.2 (0.15-1.2) mg/dL AST 25 (0-40) U/L ALT 56 H (0-41) U/L Alkaline Phosphata se 49 (40-130) IU/L C-Reactive Protein 92.6 H (0.0-4.9) mg/L Total Protein 5.7 L (6.6-8.7) g/dL Albumin 2.9 L (3.5-5.2) g/dL Globulin 2.8 (1.3-4.6) g/dL Procalcitonin 0.11 (0-0.5) ng/mL Discharge Plan Discharge Patient Disposition: Home Clinical Impression: Seroma after procedure Condition: Stable Prescriptions: New Bactrim DS 800-160 mg tablet 1 tab PO BID 10 Days Qty: 20 RF: 0 No Action clopidogrel [Plavix] 75 mg tablet 75 mg PO DAILY@06 RF: 0 Hold Instructions: Resume on 09/09/20. tizanidine 4 mg tablet 4 mg PO BID PRN (Reason: muscle spasticity) Qty: 60 RF: 0 trazodone 150 mg tablet 150 mg PO DAILY@2100 RF: 0 aspirin [Adult Low Dose Aspirin] 81 mg tablet,delayed release (DR/EC) 81 mg PO DAILY@06 RF: 0 (DME) Custome orthodic back brace See Rx Instructions .Route .MEDSUPPLY Qty: 1 RF: 0 (DME) bariatric lift chair See Rx Instructions .Route .MEDSUPPLY Qty: 1 RF: 0 (DME) Bone Growth Stimulator [id number] See Rx Instructions .Route .MEDSUPPLY Qty: 1 RF: 0 hydrocodone-acetaminophen [[place]] 7.5-325 mg tablet 1 tab PO Q6H PRN (Reason: pain) 7 Days Qty: 60 RF: 0 docusate sodium [Colace] 100 mg capsule 100 mg PO BID Qty: 30 RF: 0 Discharge Orders: Discharge ED (Routine); Ordered 12/19/20 Ordered By: Real Owens Referrals: Arsen Hernandez [Primary Care Provider] - Discharge Diet: Advance as tolerated Discharge Activity: Resume usual activity Patient Instructions: Acute Low Back Pain (ED), Opioid Safety Activity Restrictions/Additional Instructions: You have developed a seroma in your back which is common after procedures. Please start taking the Bactrim to help with a possible early infection and follow-up with Dr. Tobin next week as you already have planned. Return to the ER with worsening symptoms and watch for fevers. Coding Level of Care Code ED Mechanical Oxidizer for Chg Fwd Exam Comprehensive
[2020-12-19] MEDS: sulfamethoxazole-trimeth DS 160-800 mg Tablet 1 TAB PO (08:02)
== END 2020-12-19 08:18 | disposition home or self-care (01) ==
PROVIDERS: Emergency Medicine; Emergency Provider Family Medicine; PCP Family Medicine
DX: M96.842 Postprocedural seroma of a musculoskeletal structure following a musculoskeletal system procedure (principal); Z79.02 Long term (current) use of antithrombotics/antiplatelets; Z79.82 Long term (current) use of aspirin; I25.10 Atherosclerotic heart disease of native coronary artery without angina pectoris; Z86.73 Personal history of transient ischemic attack (TIA), and cerebral infarction without residual deficits; I10 Essential (primary) hypertension; F17.210 Nicotine dependence, cigarettes, uncomplicated
CPT/HCPCS: 72132; 72193; 80053; 84145; 85025; 85651; 86140; 96374; 96375; 99284; J1170; J1885; J2405; Q9967

== ENCOUNTER → 2021-02-18 09:44 | Outpatient (BNVA) | payer MEDICAID, SELFPAY | PROVIDERS: PCP Family Medicine; Visit Provider Orthopaedic Surgery | DX: Z48.89 Encounter for other specified surgical aftercare (principal); M54.5 Low back pain; Z98.1 Arthrodesis status | CPT/HCPCS: 72100 ==